=== PATIENT | female | born 1935 | race Caucasian/White ===

== ENCOUNTER 2019-01-23 09:29 | Inpatient (IN) | payer MEDICARE, BC ==
[~2019-01-23] VITALS: Ht 149.9 cm; Wt 58.1 kg
[2019-01-23] MEDS ORDERED: morphine 4 MG/ML VIAL IV STA (09:37)
[2019-01-23] MEDS ORDERED: ONDANSETRON 4 MG INJ IV STA (09:37)
[2019-01-23] MEDS ORDERED: ACETAMINOPHEN 325 MG TAB PO PRN ×2 (11:00→12:00)
[2019-01-23] MEDS ORDERED: ONDANSETRON 4 MG INJ IV PRN ×2 (11:00→12:00)
[2019-01-23] MEDS ORDERED: LIDOCAINE 2% VISC 15 ML CUP PO ONE (11:00)
--- NOTE | 2019-01-23 11:14 | ERD ---
ER Documentation Chief Complaint Chief Complaint fall HPI 83-year-old female brought into the emergency department by paramedics for evaluation of right hip pain. Patient states she was in her usual state of health until last night at approximately 8 AM when she fell in her garden. She began having severe right hip pain and was unable to bear weight since that time. She spent the night unfortunately in her garden. She was found this morning by her son who called the paramedics. Patient denies having passed out. I have reviewed the crotch breaker pre-hospital care. Pre-hospital vital signs were reviewed. Pre-hospital diagnostic tests were reviewed. Upon arrival, patient is complaining of right hip pain only with no other t raumatic or medical complaints. ROS All systems reviewed and are negative except as per history of present illness. PMhx/Soc Medical and Surgical Hx: pt denies Medical Hx History of Surgery: Yes (Left hip pinned) Anesthesia Reaction: No Hx Neurological Disorder: No Hx Respiratory Disorders: No Hx Cardiac Disorders: No Hx Psychiatric Problems: No Hx Miscellaneous Medical Probl: No Hx Alcohol Use: No Hx Substance Use: No Hx Tobacco Use: No Smoking Status: Never smoker FmHx Supportive son at the bedside Physical Exam Vitals Vital Signs Date Temp Pulse Resp B/P (MAP) Pulse Ox O2 O2 Flow FiO2 Time Delivery Rate 01/23/19 78 15 126/56 100 Room Air 11:09 (79) 01/23/19 97.6 80 20 151/65 100 10:30 (93) 01/23/19 82 21 121/62 100 Room Air 10:30 (81) Physical Exam General: Well developed, well nourished in no acute distress HEENT: Scalp atraumatic with no laceration or evidence of skull fracture; no signs of basilar skull fracture. Face symmetric, stable and atraumatic Neck: Full range of motion without discomfort or neurologic symptoms, no midline cervical spine tenderness, step-off, or evidence of significant trauma CV: Regular rate, rhythm, no murmurs appreciated Lungs: Clear to auscultation bilaterally with no chest wall trauma appreciated, chest wall stable with no crepitus Abdomen: Soft, atraumatic and non-tender in all 4 quadrants Extremities: Patient has an old left hip surgical scar from a previous hip operation. Patient's right lower extremity is shortened and externally rotated with tenderness to palpation about the right hip. The pelvis is stable to AP and lateral compression. The upper extremities are normal. Patient's skin is closed and patient is neurovascular intact in the right lower extremity. Back: No thoracic or lumbar midline tenderness, no step-off or evidence of s ignificant trauma Neurologic: Awake, alert and oriented, pupils equal, round and reactive to light, face symmetric, tongue midline, moving all extremities with equal and normal strength, sensory exam grossly non-focal Result Diagram: 01/23/19 1002 01/23/19 1002 Results 24 hrs Laboratory Tests Test 01/23/19 10:02 White Blood Count 13.1 10^3/ul Red Blood Count 4.70 10^6/ul Hemoglobin 14.0 g/dl Hematocrit 41.4 % Mean Corpuscular Volume 88.1 fl Mean Corpuscular Hemoglobin 29.8 pg Mean Corpuscular Hemoglobin Concent 33.8 g/dl Red Cell Distribution Width 12.3 % Platelet Count 140 10^3/UL Mean Platelet Volume 12.7 fl Immature Granulocytes % 0.500 % Neutrophils % 87.7 % Lymphocytes % 4.4 % Monocytes % 7.1 % Eosinophils % 0.1 % Basophils % 0.2 % Nucleated Red Blood Cells % 0.0 /100WBC Immature Granulocytes # 0.070 10^3/ul Neutrophils # 11.5 10^3/ul Lymphocytes # 0.6 10^3/ul Monocytes # 0.9 10^3/ul Eosinophils # 0.0 10^3/ul Basophils # 0.0 10^3/ul Nucleated Red Blood Cells # 0.0 10^3/ul Prothrombin Time 12.7 Sec Prothrombin Time Ratio 1.0 INR International Normalized Ratio 0.94 Activated Partial Thromboplast Time 24.6 Sec Sodium Level 141 mmol/L Potassium Level 4.2 mmol/L Chloride Level 104 mmol/L Carbon Dioxide Level 23 mmol/L Anion Gap 14 Blood Urea Nitrogen 20 mg/dl Creatinine 0.63 mg/dl Est Glomerular Filtrat Rate mL/min mL/min Glucose Level 212 mg/dl Calcium Level 9.0 mg/dl Total Bilirubin 0.8 mg/dl Direct Bilirubin 0.00 mg/dl Indirect Bilirubin 0.8 mg/dl Aspartate Amino Transf (AST/SGOT) 48 IU/L Alanine Aminotransferase (ALT/SGPT) 25 IU/L Alkaline Phosphatase 62 IU/L Troponin I 0.018 ng/ml Total Protein 7.7 g/dl Albumin 4.6 g/dl Globulin 3.10 g/dl Albumin/Globulin Ratio 1.48 Current Medications Medications Dose Sig/Donald Start Time Status Last (Trade) Ordered Route PRN Stop Time Admin Dose Reason Admin Morphine 4 mg ONCE STAT 01/23/19 DC 01/23/19 Sulfate IV 09:37 01/23/19 10:09 (morphine) 09:40 Ondansetron 4 mg ONCE STAT 01/23/19 DC 01/23/19 HCl (Zofran IV 09:37 01/23/19 10:08 Inj) 09:40 Ondansetron 4 mg BRIDGE ORDER 01/23/19 HCl (Zofran PRN IV 11:00 01/24/19 Inj) NAUSEA/VOMITI 10:59 NG 650 mg ER BRIDGE 01/23/19 Acetaminophen PRN PO 11:00 01/24/19 (Tylenol .MILD PAIN 10:59 Tab) 1-3 OR TEMP Lidocaine 15 ml ONCE ONCE 01/23/19 DC (Xylocaine PO 11:00 01/23/19 (Viscous)) 11:01 Procedures/MDM Patient was taken to a room, seen and evaluated. Comfort measures were initiated. Diagnostic tests were ordered and reviewed. 3 LEAD RHYTHM STRIP: Normal sinus rhythm without ectopy EK lead EKG reviewed by myself: Normal Sinus Rhythm Normal Angora and intervals No ST elevation, depression, or T wave inversion Impression: Normal EKG RADIOLOGY: Reviewed with the radiologist CONSULTATION: Dr. Garcia was notified for admission. After reaching out to Dr. Bustillo at Dr. Garcia's request, I spoke with Dr. Hoffman, who accepted the patient in orthopedic consultation. REEVALUATION: Pain was adequately controlled. Arrangements were made for admission to the hospital. MEDICAL DECISION MAKING: Patient presents after a fall. From a trauma standpoint, patient has been evaluated for significant injury. Patient has an operative right hip fracture, but no other evidence of other significant intrathoracic, intra-abdominal or neurologic trauma From a medical standpoint, the fall seems to be related to a geriatric syndrome with multiple causes. I have reviewed medications and evaluated the patient for infection, electrolyte concerns, ischemia and other acute medical concerns. Patient has no evidence of decompensated medical illness at this time. Patient will be admitted for operative management Departure Diagnosis: Primary Impression: Intertrochanteric fracture of right hip Condition: ADELAIDA Bowles Jan 23, 2019 11:14
[2019-01-23] MEDS ORDERED: OXYB10TA6 PO (11:40)
[2019-01-23] MEDS ORDERED: CHOL500010 PO (11:41)
[2019-01-23] MEDS ORDERED: VIT1TABL46 PO (11:42)
[2019-01-23] MEDS ORDERED: CALC1CAP9 PO (11:42)
[2019-01-23] MEDS ORDERED: OMEG1CAP30 PO (11:43)
--- NOTE | 2019-01-23 11:51 | HP ---
Date/Time of Note Date/Time of Note DATE: 01/23/19 TIME: 11:44 Assessment/Plan VTE Prophylaxis SCD applied (from Nsg): Yes Pharmacological prophylaxis: NA/contraindicated Pharm contraindication: surgical contra Lines/Catheters IV Catheter Type (from Nrs): Peripheral IV Urinary Cath still in place: Yes Reason Cath still needed: urinary retention Assessment/Plan Problems: (1) History of Clostridioides difficile colitis Status: Resolved Comment: Monitor. If no diarrhea, will not reeval stool but if diarrhea recurs must have low index of suspicion for recurrence. (2) Urge incontinence Status: Chronic Comment: Pt. to have bacon cath but once removed will restart oxybutynin 10 mg daily (3) Age-related osteoporosis with current pathological fracture of right femur Status: Acute Comment: Pt. s/p bisphosphonate therapy. Pt. needs anabolic bone treatment: teriparatide or abaloparatide Qualifiers: Encounter type: initial encounter Qualified Codes: M80.051A - Age-related osteoporosis with current pathological fracture, right femur, initial encounter for fracture (4) Intertrochanteric fracture of right hip Status: Acute Comment: Ortho called. Pt. will need surgery. Defer to their management Qualifiers: Encounter type: initial encounter Fracture type: closed Fracture alignment: displaced Qualified Codes: S72.141A - Displaced intertrochanteric fracture of right femur, initial encounter for closed fracture Result Diagram: 01/23/19 1002 01/23/19 1002 Results 24hrs Laboratory Tests Test 01/23/19 10:02 White Blood Count 13.1 H Red Blood Count 4.70 Hemoglobin 14.0 Hematocrit 41.4 Mean Corpuscular Volume 88.1 Mean Corpuscular Hemoglobin 29.8 Mean Corpuscular Hemoglobin Concent 33.8 Red Cell Distribution Width 12.3 Platelet Count 140 Mean Platelet Volume 12.7 H Immature Granulocytes % 0.500 H Neutrophils % 87.7 H Lymphocytes % 4.4 L Monocytes % 7.1 Eosinophils % 0.1 Basophils % 0.2 Nucleated Red Blood Cells % 0.0 Immature Granulocytes # 0.070 H Neutrophils # 11.5 H Lymphocytes # 0.6 L Monocytes # 0.9 Eosinophils # 0.0 Basophils # 0.0 Nucleated Red Blood Cells # 0.0 Prothrombin Time 12.7 Prothrombin Time Ratio 1.0 INR International Normalized Ratio 0.94 Activated Partial Thromboplast Time 24.6 Sodium Level 141 Potassium Level 4.2 Chloride Level 104 Carbon Dioxide Level 23 Anion Gap 14 H Blood Urea Nitrogen 20 Creatinine 0.63 Est Glomerular Filtrat Rate mL/min Glucose Level 212 Calcium Level 9.0 Total Bilirubin 0.8 Direct Bilirubin 0.00 Indirect Bilirubin 0.8 Aspartate Amino Transf (AST/SGOT) 48 H Alanine Aminotransferase (ALT/SGPT) 25 Alkaline Phosphatase 62 Troponin I 0.018 Total Protein 7.7 Albumin 4.6 Globulin 3.10 Albumin/Globulin Ratio 1.48 HPI/ROS Admit Date/Time Admit Date/Time 01/23/2019 @ 1100 Hx of Present Illness 83 y/o C F w/ h/o osteoporosis, urge incontinence, and recent h/o c.diff in [facility] until last night when she was working in the garden. Unable to detail how it happened but pt. fell and had immediate pain in R hip. Could not get up. Was found this am by son after laying in garden all night. Called 911 and brought to ER by ambulance. XR shows R comminuted, displaced femoral neck fracture. ROS Constitutional: no complaints Eyes: no complaints ENT: no complaints Respiratory: no complaints Cardiovascular: no complaints Gastrointestinal: no complaints Genitourinary: no complaints Musculoskeletal: bone/joint pain (R hip) Neurologic: no complaints PMH/Family/Social Past Medical History Medical History: other (osteoporosis, urge incontinence, c.diff) Medications Current Medications Ondansetron HCl (Zofran Inj) 4 mg BRIDGE ORDER PRN IV NAUSEA/VOMITING; Start 01/23/19 at 11:00; Stop 01/24/19 at 10:59 Acetaminophen (Tylenol Tab) 650 mg ER BRIDGE PRN PO .MILD PAIN 1-3 OR TEMP; Start 01/23/19 at 11:00; Stop 01/24/19 at 10:59 Coded Allergies: No Known Allergy (Unverified , 01/23/19) Past Surgical History Past Surgical Hx: other (L hip ORIF) Family History Significant Family History: heart disease (father), other (dementia in mother) Social History b. Rigoberto. 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 quit > 55 y. ago) Drug Use: none Exam/Review of Systems Vital Signs Vitals VS - Last 72 Hours, by Label Date Temp Pulse Resp B/P (MAP) Pulse Ox O2 O2 Flow FiO2 Time Delivery Rate 01/23/19 78 15 126/56 100 Room Air 11:09 (79) 01/23/19 97.6 80 20 151/65 100 10:30 (93) 01/23/19 82 21 121/62 100 Room Air 10:30 (81) Vital Signs Date Temp Pulse Resp B/P (MAP) Pulse Ox O2 O2 Flow FiO2 Time Delivery Rate 01/23/19 78 15 126/56 100 Room Air 11:09 (79) 01/23/19 97.6 10:30 Exam Constitutional: alert, oriented, well developed Psych: no complaints, nl mood/affect Eyes: nl conjunctiva, EOMI, nl lids, nl sclera, PERRL ENMT: nl external ears & nose, mucosa pink and moist Neck: supple, non-tender; No bruits, No masses, No thyromegaly Respiratory: clear to auscultation, normal air movement Cardiovascular: regular rate and rhythm, nl pulses; No edema, No murmurs/extra sounds, No rub Gastrointestinal: soft, nl liver, spleen, non-tender, bowel sounds; No mass, No rebound or guarding Musculoskeletal: nl extremities to inspection Extremities: normal pulses; No cyanosis, No clubbing, No edema 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
[2019-01-23] MEDS ORDERED: BISACODYL (EC) 5 MG TAB PO PRN (12:00)
[2019-01-23] MEDS ORDERED: DOCUSATE SODIUM 100 MG CAP PO PRN (12:00)
[2019-01-23] MEDS ORDERED: ZOLPIDEM 5 MG TAB PO PRN (12:00)
[2019-01-23] MEDS ORDERED: HYDROCODONE/APAP (5/325) TAB PO PRN (12:00)
[2019-01-23] MEDS ORDERED: MAGNESIUM HYDROXIDE 30ML CUP PO PRN (12:00)
[2019-01-23] MEDS ORDERED: NA PHOSPHATE/BIPHOS 133 ML ENEMA PR PRN (12:00)
[2019-01-23] MEDS: SOD CHLORIDE 0.9% 1,000 ML IV SCH ×2 (12:21→21:25)
[2019-01-23 13:30] VITALS: BP 136/60; PULSE 77; RESP 18
[2019-01-23 13:39] VITALS: BMI 63.0
[2019-01-23] MEDS: HYDROCODONE/APAP (5/325) TAB PO PRN ×2 (15:32→21:25)
--- NOTE | 2019-01-23 18:16 | CONS ---
DATE OF ADMISSION: 01/23/2019 DATE OF CONSULTATION: 01/23/2019 HISTORY OF PRESENT ILLNESS: The patient is an 83-year-old male who was admitted on 01/23/2019 when s he was brought into the Emergency Room because of painful swelling and deformity involving her right hip. She has been relatively in good health until last night when she had sustained a ground-level fall while she was in her garden. Because of the severe pain, she was not able to stand up or walk a nd she had to spend the night, lying in her garden until she was discovered by her son on the morning of her admission. PAST MEDICAL HISTORY: She had a fracture of her left hip about 20 years ago which was fixed with ope n reduction and internal fixation. PHYSICAL FINDINGS: My examination revealed an 83-year-old female who is alert and oriented. She wa s not in any acute distress other than the pain involving her right hip. There was an obvious shorte edith and slight external rotation of the right lower extremity which is suggestive of a hip fracture. There was no obvious neurovascular compromise involving right lower extremity. Range of motion of the right hip was not tested because of the obvious pain. DIAGNOSTIC STUDIES: X-rays of the right hip revealed an obvious intertrochanteric fracture of the ri ght hip which was displaced. The fracture was extending downward to the subtrochanteric and proximal femur area which make it unstable. DIAGNOSTIC IMPRESSION: Severely comminuted and displaced and unstable intertrochanteric fracture wit h the component subtrochanteric and proximal shaft fracture. RECOMMENDATIONS FOR TREATMENT: Open reduction and internal fixation as soon as she can be medically cleared for surgery. Dictated By: ESTEVAN SMALL MD IK/NTS Conf#: [id number] DID#: [id number] CC: ELEAZAR HUTCHISON MD;*EndCC*
[2019-01-23 20:25] VITALS: BP 121/58; PULSE 84; RESP 20
--- NOTE | 2019-01-23 22:05 | EN ---
Date/Time of Note Date/Time of Note DATE: 01/23/19 TIME: 22:02 Event Note Medicine Medicine Event Note Patient seen and examined. Labs, CXR reviewed. EKG read as normal by ER physician. Pt. w/o T2DM or cardiac history. Pt. can easily do 4 metabolic equivalents of activity as she was working in her garden when she fell and suffered a fracture. This patient should be considered low-risk for intermediate-risk procedure and may proceed at this level without further cardiac risk stratification. ELEAZAR HUTCHISON MD Jan 23, 2019 22:05
[2019-01-24] VITALS (34 sets, daily range): BP systolic 111–161; BP diastolic 42–72; PULSE 74–108; RESP 12–21; Ht 149.9 cm; Wt 58.1 kg
[2019-01-24] MEDS: SOD CHLORIDE 0.9% 1,000 ML IV SCH ×4 (07:38→18:47)
[2019-01-24] MEDS: morphine 2 MG INJ IV PRN (09:49)
--- NOTE | 2019-01-24 10:34 | PN ---
Date/Time of Note Date/Time of Note DATE: 01/24/19 TIME: 10:26 Assessment/Plan VTE Prophylaxis Risk score (from [facility])>0 risk: 11 SCD applied (from [facility]): Yes Pharmacological prophylaxis: NA/contraindicated Pharm contraindication: thrombocytopenia, surgical contra Lines/Catheters IV Catheter Type (from [facility]): Peripheral IV Urinary Cath still in place: Yes Reason Cath still needed: urinary retention Assessment/Plan Problems: (1) Thrombocytopenia Status: Acute Comment: Platelets dropped from 140 on admission to 86 this am. No obvious reason for decrease. Pt. did not receive heparin. Possible hepatosplenomegaly but not palpable on exam. Should not be too low to prevent surgery. Will reche ck in am w/ separate platelet count. Will monitor. (2) Urge incontinence Status: Chronic Comment: Bacon cath in place. Holding oxybutynin at this time. Will restart once bacon removed (3) Age-related osteoporosis with current pathological fracture of right femur Status: Acute Comment: Will need anabolic therapy Qualifiers: Encounter type: initial encounter Qualified Codes: M80.051A - Age-related osteoporosis with current pathological fracture, right femur, initial encounter for fracture (4) Intertrochanteric fracture of right hip Status: Acute Comment: To OR today provided platelet count not a contraindication. Qualifiers: Encounter type: initial encounter Fracture type: closed Fracture alig nment: displaced Qualified Codes: S72.141A - Displaced intertrochanteric fracture of right femur, initial encounter for closed fracture Result Diagram: 01/24/19 0507 01/24/19 0507 Results 24hrs Laboratory Tests Test 01/23/19 11:51 01/24/19 05:07 Urine Color YELLOW Urine Clarity SLIGHTLY CLOUDY A Urine pH 5.0 Urine Specific [place] 1.022 Urine Ketones 1+ H Urine Nitrite NEGATIVE Urine Bilirubin NEGATIVE Urine Urobilinogen NEGATIVE Urine Leukocyte Esterase 1+ H Urine Microscopic RBC 2 Urine Microscopic WBC 36 H Urine Bacteria FEW A Urine Mucus FEW A Urine Hemoglobin NEGATIVE Urine Glucose 3+ H Urine Total Protein NEGATIVE White Blood Count 9.3 # Red Blood Count 3.47 #L Hemoglobin 10.5 #L Hematocrit 31.1 #L Mean Corpuscular Volume 89.6 Mean Corpuscular Hemoglobin 30.3 Mean Corpuscular Hemoglobin Concent 33.8 Red Cell Distribution Width 13.0 Platelet Count 86 #L Mean Platelet Volume 12.7 H Immature Granulocytes % 0.400 Neutrophils % 64.1 Lymphocytes % 23.0 Monocytes % 11.0 Eosinophils % 1.1 Basophils % 0.4 Nucleated Red Blood Cells % 0.0 Immature Granulocytes # 0.040 H Neutrophils # 6.0 Lymphocytes # 2.1 Monocytes # 1.0 H Eosinophils # 0.1 Basophils # 0.0 Nucleated Red Blood Cells # 0.0 Sodium Level 141 Potassium Level 4.0 Chloride Level 109 Carbon Dioxide Level 29 Anion Gap 3 #L Blood Urea Nitrogen 17 Creatinine 0.72 Est Glomerular Filtrat Rate mL/min Glucose Level 110 # Hemoglobin A1c 5.1 Calcium Level 8.1 L Magnesium Level 2.0 Total Bilirubin 0.6 Direct Bilirubin 0.00 Indirect Bilirubin 0.6 Aspartate Amino Transf (AST/SGOT) 84 H Alanine Aminotransferase (ALT/SGPT) 39 Alkaline Phosphatase 40 L Total Protein 5.3 #L Albumin 2.9 #L Globulin 2.40 Albumin/Globulin Ratio 1.20 Thyroid Stimulating Hormone (TSH) 1.590 Subjective 24 Hr Interval Summary Constitutional: no complaints, improved Respiratory: no complaints Cardiovascular: no complaints Gastrointestinal: no complaints Genitourinary: no complaints Musculoskeletal: bone/joint pain (R hip pain, controlled w/ pain med) Neurologic: no complaints Exam/Review of Systems Exam Vitals VS - Last 72 Hours, by Label Date Temp Pulse Resp B/P (MAP) Pulse Ox O2 O2 Flow FiO2 Time Delivery Rate 01/24/19 98.8 81 20 141/64 97 07:16 (89) 01/24/19 98.3 74 17 119/56 100 01:37 (77) 01/23/19 97.9 84 20 121/58 99 20:25 (79) 01/23/19 98.1 77 18 136/60 97 Room Air 13:30 (85) 01/23/19 78 15 126/56 100 Room Air 11:09 (79) 01/23/19 97.6 80 20 151/65 100 10:30 (93) 01/23/19 82 21 121/62 100 Room Air 10:30 (81) Vital Signs Date Temp Pulse Resp B/P (MAP) Pulse Ox O2 O2 Flow FiO2 Time Delivery Rate 01/24/19 98.8 81 20 141/64 97 07:16 (89) 01/23/19 Room Air 13:30 Intake and Output 01/23/19 01/23/19 01/24/19 1515:00 23:00 07:00 IntakeIntake Total 1000 ml 800 ml OutputOutput Total 500 ml BalanceBalance 1000 ml 300 ml Constitutional: alert, oriented, well developed Psych: no complaints, nl mood/affect Respiratory: clear to auscultation, normal air movement Cardiovascular: regular rate and rhythm, nl pulses; No edema, No murmurs/extra sounds, No rub Gastrointestinal: soft, nl liver, spleen, non-tender, bowel sounds; No mass, No rebound or guarding Musculoskeletal: nl extremities to inspection Extremities: normal pulses; No cyanosis, No clubbing, No edema Neurological: 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, nl mental status, nl speech, nl strength Results Results 24hrs Laboratory Tests Test 01/23/19 11:51 01/24/19 05:07 Urine Color YELLOW Urine Clarity SLIGHTLY CLOUDY A Urine pH 5.0 Urine Specific [place] 1.022 Urine Ketones 1+ H Urine Nitrite NEGATIVE Urine Bilirubin NEGATIVE Urine Urobilinogen NEGATIVE Urine Leukocyte Esterase 1+ H Urine Microscopic RBC 2 Urine Microscopic WBC 36 H Urine Bacteria FEW A Urine Mucus FEW A Urine Hemoglobin NEGATIVE Urine Glucose 3+ H Urine Total Protein NEGATIVE White Blood Count 9.3 # Red Blood Count 3.47 #L Hemoglobin 10.5 #L Hematocrit 31.1 #L Mean Corpuscular Volume 89.6 Mean Corpuscular Hemoglobin 30.3 Mean Corpuscular Hemoglobin Concent 33.8 Red Cell Distribution Width 13.0 Platelet Count 86 #L Mean Platelet Volume 12.7 H Immature Granulocytes % 0.400 Neutrophils % 64.1 Lymphocytes % 23.0 Monocytes % 11.0 Eosinophils % 1.1 Basophils % 0.4 Nucleated Red Blood Cells % 0.0 Immature Granulocytes # 0.040 H Neutrophils # 6.0 Lymphocytes # 2.1 Monocytes # 1.0 H Eosinophils # 0.1 Basophils # 0.0 Nucleated Red Blood Cells # 0.0 Sodium Level 141 Potassium Level 4.0 Chloride Level 109 Carbon Dioxide Level 29 Anion Gap 3 #L Blood Urea Nitrogen 17 Creatinine 0.72 Est Glomerular Filtrat Rate mL/min Glucose Level 110 # Hemoglobin A1c 5.1 Calcium Level 8.1 L Magnesium Level 2.0 Total Bilirubin 0.6 Direct Bilirubin 0.00 Indirect Bilirubin 0.6 Aspartate Amino Transf (AST/SGOT) 84 H Alanine Aminotransferase (ALT/SGPT) 39 Alkaline Phosphatase 40 L Total Protein 5.3 #L Albumin 2.9 #L Globulin 2.40 Albumin/Globulin Ratio 1.20 Thyroid Stimulating Hormone (TSH) 1.590 Medications Medication Current Medications Ondansetron HCl (Zofran Inj) 4 mg BRIDGE ORDER PRN IV NAUSEA/VOMITING; Start 01/23/19 at 11:00; Stop 01/24/19 at 10:59 Acetaminophen (Tylenol Tab) 650 mg ER BRIDGE PRN PO .MILD PAIN 1-3 OR TEMP; Start 01/23/19 at 11:00; Stop 01/24/19 at 10:59 Sodium Chloride 1,000 ml @ 100 mls/hr Q10H IV Last administered on 01/24/19at 09:49; Admin Dose 100 MLS/HR; Start 01/23/19 at 11:38 IV Flush (NS 3 ml) 3 ml PER PROTOCOL IV ; Start 01/23/19 at 12:00 Ondansetron HCl (Zofran Inj) 4 mg Q6H PRN IV NAUSEA/VOMITING; Start 01/23/19 at 12:00 Acetaminophen (Tylenol Tab) 650 mg Q6H PRN PO .PAIN 1-3 OR TEMP; Start 01/23/19 at 12:00 Acetaminophen/ Hydrocodone Bitart ([place] (5/325)) 1 tab Q6H PRN PO .MOD PAIN 4- 6; Start 01/23/19 at 12:00 Acetaminophen/ Hydrocodone Bitart ([place] (5/325)) 2 tab Q6H PRN PO .SEVERE PAIN 7-10 Last administered on 01/23/19at 21:25; Admin Dose 2 TAB; Start 01/23/19 at 12:00 Morphine Sulfate (morphine) 2 mg Q4H PRN IV .SEVERE PAIN 7-10 Last administered on 01/24/19at 09:49; Admin Dose 2 MG; Start 01/23/19 at 12:00 Docusate Sodium (Colace) 100 mg Q12H PRN PO .CONSTIPATION; Start 01/23/19 at 12:00 Magnesium Hydroxide (Milk Of Mag) 30 ml DAILY PRN PO .CONSTIPATION; Start 01/23/19 at 12:00 Bisacodyl (Dulcolax) 5 mg DAILY PRN PO .CONSTIPATION; Start 01/23/19 at 12:00 Sodium Biphosphate/ Sodium Phosphate (Fleet Enema) 133 ml DAILY PRN [place] .CONSTIPATION; Start 01/23/19 at 12:00 Zolpidem Tartrate (Ambien) 5 mg QHS PRN PO .INSOMNIA; Start 01/23/19 at 12:00 ELEAZAR HUTCHISON MD Jan 24, 2019 10:34
[2019-01-24] MEDS ORDERED: POLYMYXIN/BACITRACIN 1L IRRIG ONE (12:28)
--- NOTE | 2019-01-24 13:04 | PREAC ---
Date/Time of Note Date/Time of Note DATE: 01/24/19 TIME: 12:52 Anesthesia Eval and Record Evaluation Time Pre-Procedure Interview DATE: 01/24/19 TIME: 12:52 Age 83 Sex female NPO: 8 hrs Preoperative diagnosis Intratrochanteric fracture of right hip Planned procedure ORIF Right Hip Past Medical History Past Medical History: Includes Musculoskeletal: Osteoarthritis GI: GERD Heme: Anemia, Thrombocytopenia, Other (Labs rechecked with consistent thrombocytopenia, called lab, no clumping, +giant cells, denies FHx of bleeding issues, not on known drug to cause TCP, ?on herbals, PT/INR/PTT WNL, no easy brusing, denies prior bleeding during surgery, no prior blood malignancies, LFTS unremarkable, no evident HSM) Surgery & Anesthesia Issues No known issue Meds Anticoagulation: No Beta Augustine within 24 hr: No Reason Beta Augustine not given: Pt. not on B-Augustine Reported Medications Wallace-3 Fatty Acids/Fish Oil (Wallace 3 Fish Oil Softgel) 1 Each Capsule.dr, 1 EACH PO DAILY 01/23/19 Vitamin B Complex* (Vitamin B Complex*) 1 Each Tablet, 1 TAB PO DAILY, TAB 01/23/19 Calcium Carbonate-Vitamin D3 (Calcium 600 + D Softgel) 1 Each Capsule, 2 CAP PO DAILY, CAP 01/23/19 Cholecalciferol (Vitamin D3) 5,000 Unit Tablet, 5000 UNIT PO DAILY, TAB 01/23/19 Oxybutynin Chloride* (Ditropan* XL) 10 Mg Tab.er.24, 10 MG PO DAILY, TAB.SA 01/23/19 Current Medications Sodium Chloride 1,000 ml @ 100 mls/hr Q10H IV Last administered on 01/24/19at 09:49; Admin Dose 100 MLS/HR; Start 01/23/19 at 11:38 IV Flush (NS 3 ml) 3 ml PER PROTOCOL IV ; Start 01/23/19 at 12:00 Ondansetron HCl (Zofran Inj) 4 mg Q6H PRN IV NAUSEA/VOMITING; Start 01/23/19 at 12:00 Acetaminophen (Tylenol Tab) 650 mg Q6H PRN PO .PAIN 1-3 OR TEMP; Start 01/23/19 at 12:00 Acetaminophen/ Hydrocodone Bitart ([place] (5/325)) 1 tab Q6H PRN PO .MOD PAIN 4- 6; Start 01/23/19 at 12:00 Acetaminophen/ Hydrocodone Bitart ([place] (5/325)) 2 tab Q6H PRN PO .SEVERE PAIN 7-10 Last administered on 01/23/19at 21:25; Admin Dose 2 TAB; Start 01/23/19 at 12: 00 Morphine Sulfate (morphine) 2 mg Q4H PRN IV .SEVERE PAIN 7-10 Last administered on 01/24/19at 09:49; Admin Dose 2 MG; Start 01/23/19 at 12:00 Docusate Sodium (Colace) 100 mg Q12H PRN PO .CONSTIPATION; Start 01/23/19 at 12:00 Magnesium Hydroxide (Milk Of Mag) 30 ml DAILY PRN PO .CONSTIPATION; Start 01/23/19 at 12:00 Bisacodyl (Dulcolax) 5 mg DAILY PRN PO .CONSTIPATION; Start 01/23/19 at 12:00 Sodium Biphosphate/ Sodium Phosphate (Fleet Enema) 133 ml DAILY PRN [place] .CONSTIPATION; Start 01/23/19 at 12:00 Zolpidem Tartrate (Ambien) 5 mg QHS PRN PO .INSOMNIA; Start 01/23/19 at 12:00 Meds reviewed: Yes Allergies Coded Allergies: No Known Allergy (Unverified , 01/23/19) Allergies Reviewed: Yes Labs/Studies Labs Reviewed: Reviewed by anesthesiologist Result Diagram: 01/24/19 1118 01/24/19 0507 Laboratory Tests 01/24/19 05:07 01/24/19 11:18 test: N/A Studies: ECG Pre-procedure Exam Last vitals Vital Signs Date Temp Pulse Resp B/P (MAP) Pulse Ox O2 O2 Flow FiO2 Time Delivery Rate 01/24/19 98.8 81 20 141/64 97 07:16 (89) 01/23/19 Room Air 13:30 Airway: Adequate mouth opening, Adequate thyromental dist Mallampati: Mallampati II Teeth: Normal Lung: Normal Heart: Normal ASA Physical Status ASA physical status: 2 Emergency: None Planned Anesthetic General/MAC: ETT, A Line, Other (Platelets on hand pre-op and PRBCs on hold; weight 130lbs (correction needed in EMR)) Planned Pain Management Parenteral pain med, Local by surgeon Pre-operative Attestations Prior to commencing anesthesia and surgery, the patient was re-evaluated, there was verification of: *The patient's identity *The results of appropriate recent lab work and preoperative vital signs *The above evaluation not changing prior to induction *Anesthetic plan, risk benefits, alternative and complications discussed with patient/family; questions answered; patient/family understands, accepts and wishes to proceed. STEPHAN COVINGTON MD Jan 24, 2019 13:03
[2019-01-24] MEDS ORDERED: CEFAZOLIN 1 GM INJ ONE (13:08)
[2019-01-24] MEDS ORDERED: DEXAMETHASONE 4 MG/ML 5 ML INJ ONE (13:08)
[2019-01-24] MEDS ORDERED: ESMOLOL 100 MG INJ ONE (13:08)
[2019-01-24] MEDS ORDERED: LIDOCAINE 2% (SDV) 5 ML INJ ONE (13:08)
[2019-01-24] MEDS ORDERED: SEVOFLURANE 15 MIN ONE (13:08)
[2019-01-24] MEDS ORDERED: NEOSTIGMINE 3 MG/3 ML SYRINGE ONE (13:08)
[2019-01-24] MEDS ORDERED: GLYCOPYRROLATE 0.4 MG INJ ONE (13:08)
[2019-01-24] MEDS ORDERED: ROCURONIUM 50 MG INJ ONE (13:08)
[2019-01-24] MEDS ORDERED: PROPOFOL 200 MG INJ ONE (13:08)
[2019-01-24] MEDS ORDERED: ONDANSETRON 4 MG INJ ONE (13:08)
[2019-01-24] MEDS ORDERED: ALBUMIN HUMAN 5% 250 ML IV PRN (13:30)
[2019-01-24] MEDS ORDERED: FENTAnyl 50 MCG/ML VIAL IV PRN ×2 (13:30)
[2019-01-24] MEDS ORDERED: ONDANSETRON 4 MG INJ IV PRN (13:30)
[2019-01-24] MEDS ORDERED: LABETALOL HCL 20MG INJ IV PRN (13:30)
[2019-01-24] MEDS ORDERED: morphine 2 MG INJ IV PRN ×2 (13:30)
--- NOTE | 2019-01-24 13:39 | HPN ---
Date/Time of Note Date/Time of Note DATE: 01/24/19 TIME: 13:39 Interval H&P Admission Note Pt. seen H&P reviewed: No system changes LUIS FELIPE SMALL MD Jan 24, 2019 13:39
[2019-01-24] MEDS ORDERED: HYDROmorphONE 2 MG/ML SYG ONE (14:51)
[2019-01-24] MEDS ORDERED: ACETAMINOPHEN 1000MG/100ML IV 100 ML IVPB ONE (16:00)
--- NOTE | 2019-01-24 16:43 | PAC ---
Date/Time of Note Date/Time of Note DATE: 01/24/19 TIME: 16:42 Post-Anesthesia Notes Post-Anesthesia Note Last documented vital signs T 98.6, HR 98 RR14 BP 156/64 Sp02 100% FM 6L FM Vital Signs Date Temp Pulse Resp B/P (MAP) Pulse Ox O2 O2 Flow FiO2 Time Delivery Rate 01/24/19 98.8 81 20 141/64 97 07:16 (89) 01/23/19 Room Air 13:30 Activity: WNL Respiratory function: WNL Cardiovascular function: WNL Mental status: Baseline Pain reasonably controlled: Yes Hydration appropriate: Yes Nausea/Vomiting absent: Yes STEPHAN COVINGTON MD Jan 24, 2019 16:43
--- NOTE | 2019-01-24 17:11 | SIPON ---
Date/Time of Note Date/Time of Note DATE: 01/24/19 TIME: 17:02 Operative Report Preoperative Diagnosis intertrochanteric & subtrochanteric fracture of Righrt hip Postoperative Diagnosis same Operation/Procedure Performed O.R.I.F. of right hip fracture Surgeon see signature line practice assistant none Anesthesia: general Estimated blood loss: 50 - 100 ml's Transfusion Required none Specimen none Grafts/Implants gamma nail Complications none LUIS FELIPE SMALL MD Jan 24, 2019 17:11
[2019-01-24] MEDS ORDERED: morphine 4 MG/ML VIAL IV PRN (17:30)
[2019-01-24] MEDS ORDERED: HYDROCODONE/APAP (5/325) TAB PO PRN (17:30)
--- NOTE | 2019-01-24 18:50 | OPR ---
DATE OF OPERATION: 01/24/2019 PREOPERATIVE DIAGNOSIS: Intertrochanteric and subtrochanteric fracture of the right hip. POSTOPERATIVE DIAGNOSIS: Intertrochanteric and subtrochanteric fracture of the right hip. PROCEDURE PERFORMED: Open reduction and internal fixation of the intertrochanteric and subtrochanter ic fracture of the right hip. ANESTHESIA: General anesthesia. SURGEON: Estevan Hoffman MD. PROCEDURE AND FINDINGS: Under general anesthesia, the patient was placed in supine position upon the operating table. Using fracture table and under fluoroscopic monitoring with the patient under anes thesia, manipulative reduction was carried out until an acceptable alignment could be achieved. To m y surprise, the steady distal traction followed by abduction and internal and external rotate, manipu lation produced exact and completely satisfactory alignment of the fracture, the concern. The long s piking fractured fragment pain involving the subtrochanteric area and proximal shaft of the right fem ur was exactly reduced along with the reduction of the intertrochanteric portion of the fracture. Usual prep and drape was done exposing the right hip and right lower extremity. The intertrochanteri c area of the right hip was approached through the small longitudinal incision, and this incision was extended up or as needed because of the abundant amount of adipose tissues around the hip. A guide drill was introduced into the intramedullary canal through the tip of the greater trochanter and afte r confirming satisfactory alignment of the guide drill, the opening was enlarged with the cannulated drill and the reamer guide was introduced into the intramedullary canal. After proper adjustment and positioning, measurement was made and it was my estimation that 340 mm intramedullary device should be used. After reaming up to 11 mm, the selected intramedullary cha in the size of 340 mm x 10 mm wi th the 130-degree angle was inserted. After proper adjustment, a guide pin for the lag screw was pro perly positioned and the measurement revealed that the length of the lag screw should be 85 mm. Afte r drilling along the guide pin, the selected lag screw in the size of 85 mm was inserted. The lag sc rew then was locked after obtaining some degree of compression at the fracture site. Finally, in ord er to stabilize the entire system further, one distal locking screw was placed in a static position. After confirming satisfactory alignment of the fracture and proper position of the fixation device an d after irrigation and hemostasis, closure of the incision was carried out using 0 Vicryl for muscle and fascia and 2-0 Vicryl for subcutaneous tissues. Final skin closure was carried out with skin sta ples. Usual sterile pressure dressings were applied. The patient tolerated the entire procedure very well and was sent to the recovery room in good condit ion. Dictated By: ESTEVAN HASSAN/CELY Conf#: [id number] DID#: [id number] CC: ELEAZAR HUTCHISON MD;*End*
[2019-01-24] MEDS: NACL 0.9% 3 ML SYG IV SCH (19:33)
[2019-01-25] MEDS: SOD CHLORIDE 0.9% 1,000 ML IV SCH ×3 (01:33→21:10)
[2019-01-25 02:00] VITALS: BP 129/58; PULSE 88; RESP 17
[2019-01-25 07:57] VITALS: BP 136/64; PULSE 89; RESP 20
[2019-01-25 14:00] VITALS: BP 119/58; PULSE 91; RESP 20
[2019-01-25 20:00] VITALS: BP 116/58; PULSE 90; RESP 20
[2019-01-25] MEDS: FERROUS SULFATE (EC) 325 MG TAB PO SCH (21:10)
[2019-01-25] MEDS: DICLOFENAC SODIUM 1% GEL 100 GM TUBE TP SCH (21:10)
--- NOTE | 2019-01-25 23:14 | PN ---
Date/Time of Note Date/Time of Note DATE: 01/25/19 TIME: 23:06 Assessment/Plan VTE Prophylaxis Risk score (from [facility])>0 risk: 12 SCD applied (from [facility]): Yes Pharmacological prophylaxis: NA/contraindicated Pharm contraindication: thrombocytopenia, surgical contra Lines/Catheters IV Catheter Type (from [facility]): Peripheral IV Urinary Cath still in place: Yes Reason Cath still needed: urinary retention Assessment/Plan Problems: (1) Postoperative anemia due to acute blood loss Status: Acute Comment: Hgb down to 7.2 today. Will start FeSO4 325 mg tid today. Monitor. If continues to decrease will transfuse pt. (2) Knee pain, right Status: Acute Comment: Likely due to swelling. Will add diclofenac gel to knee to reduce pain and swelling locally. Qualifiers: Chronicity: acute Qualified Codes: M25.561 - Pain in right knee (3) Conflicted attitude towards exercise Status: Acute Comment: Pt. refusing PT. Encourage compliance. Pt. advised that mortality is significantly higher in patients with this type of injury who do not ambulate. Pt. advised to work w/ PT. Ortho requesting ARU. Pt. will not qualify for or benefit from ARU if she refuses to work w/ PT. (4) Thrombocytopenia Status: Acute Comment: Idiopathic and not severe. Will monitor. (5) Intertrochanteric fracture of right hip Status: Acute Comment: S/p ORIF, POD#1. Pain controlled. Encourage PT. Will monitor. Qualifiers: Encounter type: initial encounter Fracture type: closed Fracture alignment: displaced Qualified Codes: S72.141A - Displaced intertrochanteric fracture of right femur, initial encounter for closed fracture (6) Urge incontinence Status: Chronic Comment: Once bacon d/c'ed will restart oxybutynin Result Diagram: 01/25/19 0454 01/25/19 0454 Results 24hrs Laboratory Tests Test 01/25/19 04:54 White Blood Count 9.2 # Red Blood Count 2.42 L Hemoglobin 7.2 L Hematocrit 22.0 L Mean Corpuscular Volume 90.9 Mean Corpuscular Hemoglobin 29.8 Mean Corpuscular Hemoglobin Concent 32.7 Red Cell Distribution Width 12.9 Platelet Count 108 L Mean Platelet Volume 12.1 H Immature Granulocytes % 0.300 Neutrophils % 83.1 H Lymphocytes % 6.9 L Monocytes % 9.6 Eosinophils % 0.0 Basophils % 0.1 Nucleated Red Blood Cells % 0.0 Immature Granulocytes # 0.030 Neutrophils # 7.6 H Lymphocytes # 0.6 L Monocytes # 0.9 Eosinophils # 0.0 Basophils # 0.0 Nucleated Red Blood Cells # 0.0 Prothrombin Time 14.9 Prothrombin Time Ratio 1.2 INR International Normalized Ratio 1.16 Sodium Level 141 Potassium Level 3.9 Chloride Level 112 H Carbon Dioxide Level 21 Anion Gap 8 Blood Urea Nitrogen 15 Creatinine 0.58 Est Glomerular Filtrat Rate mL/min Glucose Level 125 Calcium Level 7.5 L Subjective 24 Hr Interval Summary Constitutional: no complaints Respiratory: no complaints Cardiovascular: no complaints Gastrointestinal: no complaints Genitourinary: no complaints Musculoskeletal: bone/joint pain (R knee painful when she tries to ambulate and feels it will go sideways on her; does not want to get up; does not trust PT) Neurologic: no complaints Exam/Review of Systems Exam Vitals VS - Last 72 Hours, by Label Date Temp Pulse Resp B/P (MAP) Pulse Ox O2 O2 Flow FiO2 Time Delivery Rate 01/25/19 98.9 90 20 116/58 95 Room Air 20:00 (77) 01/25/19 98.7 91 20 119/58 98 Room Air 14:00 (78) 01/25/19 99.0 89 20 136/64 99 Nasal 07:57 (88) Cannula 01/25/19 97.9 88 17 129/58 100 Room Air 02:00 (81) 01/24/19 98.3 80 18 111/56 100 Room Air 21:50 (74) 01/24/19 98.2 79 18 127/59 100 Room Air 20:51 (81) 01/24/19 98.0 82 17 119/57 100 Room Air 20:20 (77) 01/24/19 Nasal 2.0 19:56 Cannula 01/24/19 98.2 79 17 127/59 100 19:50 (81) 01/24/19 97.6 108 18 144/57 100 19:20 (86) 01/24/19 97.9 83 20 134/63 100 19:05 (86) 01/24/19 98.3 83 20 141/65 100 18:53 (90) 01/24/19 98.3 85 18 142/63 100 18:35 (89) 01/24/19 Nasal 2.0 18:28 Cannula 01/24/19 98.9 76 19 133/54 100 Room Air 18:28 (80) 01/24/19 78 20 114/42 100 Room Air 18:23 (66) 01/24/19 78 19 122/45 100 Room Air 18:18 (70) 01/24/19 88 21 143/53 99 Room Air 18:13 (83) 01/24/19 80 20 132/52 100 Room Air 18:08 (78) 01/24/19 92 14 135/66 100 Room Air 18:03 (89) 01/24/19 76 19 125/49 100 Room Air 17:58 (74) 01/24/19 78 20 125/47 100 Room Air 17:53 (73) 01/24/19 88 12 161/72 89 Room Air 17:48 (101) 01/24/19 84 19 137/62 95 Room Air 17:43 (87) 01/24/19 82 14 131/50 96 Room Air 17:38 (77) 01/24/19 82 17 124/60 96 Room Air 17:33 (81) 01/24/19 82 14 140/56 97 Room Air 17:28 (84) 01/24/19 86 16 140/57 96 Room Air 17:23 (84) 01/24/19 86 15 140/54 96 Room Air 17:18 (82) 01/24/19 88 17 143/57 96 Room Air 17:13 (85) 01/24/19 96 18 151/61 97 Room Air 17:08 (91) 01/24/19 98 19 147/64 98 Room Air 17:03 (91) 01/24/19 92 17 145/72 100 Nasal 2.0 16:58 (96) Cannula 01/24/19 104 19 150/64 100 Nasal 2.0 16:53 (92) Cannula 01/24/19 98 17 158/64 100 Nasal 4.0 16:48 (95) Cannula 01/24/19 108 16 154/69 100 Nasal 4.0 16:43 (97) Cannula 01/24/19 15 156/64 100 Mask 8.0 16:40 (94) 01/24/19 98.6 84 14 156/64 100 Mask 8.0 16:37 (94) 01/24/19 Simple 8.0 16:37 Mask 01/24/19 98.8 81 20 141/64 97 07:16 (89) 01/24/19 98.3 74 17 119/56 100 01:37 (77) 01/23/19 97.9 84 20 121/58 99 20:25 (79) 01/23/19 98.1 77 18 136/60 97 Room Air 13:30 (85) 01/23/19 78 15 126/56 100 Room Air 11:09 (79) 01/23/19 97.6 80 20 151/65 100 10:30 (93) 01/23/19 82 21 121/62 100 Room Air 10:30 (81) Vital Signs Date Temp Pulse Resp B/P (MAP) Pulse Ox O2 O2 Flow FiO2 Time Delivery Rate 01/25/19 98.9 90 20 116/58 95 Room Air 20:00 (77) 01/24/19 2.0 19:56 Intake and Output 01/24/19 01/24/19 01/25/19 1515:00 23:00 07:00 IntakeIntake Total 400 ml 2811 ml 1500 ml OutputOutput Total 1100 ml 700 ml BalanceBalance 400 ml 1711 ml 800 ml Constitutional: alert, oriented, well developed Psych: no complaints, nl mood/affect Respiratory: clear to auscultation, normal air movement Cardiovascular: regular rate and rhythm, edema (RLE); No murmurs/extra sounds, No rub Gastrointestinal: soft, nl liver, spleen, non-tender, bowel sounds; No mass, No rebound or guarding Musculoskeletal: nl extremities to inspection Extremities: edema (2+ around R knee); No cyanosis, No clubbing Neurological: MUSICAL THERAPIST II-XII intact, nl mental status, nl speech, nl strength Results Results 24hrs Laboratory Tests Test 01/25/19 04:54 White Blood Count 9.2 # Red Blood Count 2.42 L Hemoglobin 7.2 L Hematocrit 22.0 L Mean Corpuscular Volume 90.9 Mean Corpuscular Hemoglobin 29.8 Mean Corpuscular Hemoglobin Concent 32.7 Red Cell Distribution Width 12.9 Platelet Count 108 L Mean Platelet Volume 12.1 H Immature Granulocytes % 0.300 Neutrophils % 83.1 H Lymphocytes % 6.9 L Monocytes % 9.6 Eosinophils % 0.0 Basophils % 0.1 Nucleated Red Blood Cells % 0.0 Immature Granulocytes # 0.030 Neutrophils # 7.6 H Lymphocytes # 0.6 L Monocytes # 0.9 Eosinophils # 0.0 Basophils # 0.0 Nucleated Red Blood Cells # 0.0 Prothrombin Time 14.9 Prothrombin Time Ratio 1.2 INR International Normalized Ratio 1.16 Sodium Level 141 Potassium Level 3.9 Chloride Level 112 H Carbon Dioxide Level 21 Anion Gap 8 Blood Urea Nitrogen 15 Creatinine 0.58 Est Glomerular Filtrat Rate mL/min Glucose Level 125 Calcium Level 7.5 L Medications Medication Current Medications Sodium Chloride 1,000 ml @ 100 mls/hr Q10H IV Last administered on 01/25/19 21:10; Admin Dose 100 MLS/HR; Start 01/23/19 at 11:38 IV Flush (NS 3 ml) 3 ml PER PROTOCOL IV Last administered on 01/24/19 19:33; Admin Dose 3 ML; Start 01/23/19 at 12:00 Ondansetron HCl (Zofran Inj) 4 mg Q6H PRN IV NAUSEA/VOMITING Last administered on 01/24/19 19:32; Admin Dose 4 MG; Start 01/23/19 at 12:00 Acetaminophen (Tylenol Tab) 650 mg Q6H PRN PO .PAIN 1-3 OR TEMP; Start 01/23/19 at 12:00 Acetaminophen/ Hydrocodone Bitart ([place] (5/325)) 2 tab Q6H PRN PO .SEVERE PAIN 7-10 Last administered on 01/23/19at 21:25; Admin Dose 2 TAB; Start 01/23/19 at 12:00 Morphine Sulfate (morphine) 2 mg Q4H PRN IV .SEVERE PAIN 7-10 Last administered on 01/24/19at 09:49; Admin Dose 2 MG; Start 01/23/19 at 12:00 Docusate Sodium (Colace) 100 mg Q12H PRN PO .CONSTIPATION; Start 01/23/19 at 12:00 Magnesium Hydroxide (Milk Of Mag) 30 ml DAILY PRN PO .CONSTIPATION; Start 01/23/19 at 12:00 Bisacodyl (Dulcolax) 5 mg DAILY PRN PO .CONSTIPATION; Start 01/23/19 at 12:00 Sodium Biphosphate/ Sodium Phosphate (Fleet Enema) 133 ml DAILY PRN [place] .CONSTIPATION; Start 01/23/19 at 12:00 Zolpidem Tartrate (Ambien) 5 mg QHS PRN PO .INSOMNIA; Start 01/23/19 at 12:00 Morphine Sulfate (morphine) 3 mg Q3H PRN IV SEVERE PAIN LEVEL 7-10; Start 01/24/19 at 17:30 Acetaminophen/ Hydrocodone Bitart ([place] (5/325)) 1 tab Q3H PRN PO MODERATE PAIN LEVEL 4-6; Start 01/24/19 at 17:30 Ferrous Sulfate (Ferrous Sulfate (Ec)) 325 mg TID PO Last administered on 01/25/19at 21:10; Admin Dose 325 MG; Start 01/25/19 at 21:00 Diclofenac Sodium (Voltaren 1% Gel) 4 gm QID TP Last administered on 01/25/19at 21:10; Admin Dose 4 GM; Start 01/25/19 at 21:00 ELEAZAR HUTCHISON MD Jan 25, 2019 23:13
[2019-01-26 02:00] VITALS: BP 139/63; PULSE 94; RESP 19
[2019-01-26] MEDS: HYDROCODONE/APAP (5/325) TAB PO PRN ×2 (04:41→11:48)
[2019-01-26 07:28] VITALS: BP 130/60; PULSE 81; RESP 20
[2019-01-26] MEDS ORDERED: SOD CHLORIDE 0.9% 250 ML IV* ONE (09:22)
[2019-01-26] MEDS: FERROUS SULFATE (EC) 325 MG TAB PO SCH ×3 (09:40→21:23)
[2019-01-26] MEDS: DICLOFENAC SODIUM 1% GEL 100 GM TUBE TP SCH ×4 (09:40→21:23)
[2019-01-26 13:46] VITALS: BP 135/63; PULSE 81; RESP 18
--- NOTE | 2019-01-26 14:40 | PN ---
DATE: 01/26/2019 Second postop day. Stable vital signs. H and H is down to 6.8/20.2, transfused with 1 unit of packe d cells. Slow progress with PT, most probably because of the fear factor. To be transferred to [facility] for further rehabilitation. Postop x-ray shows excellent alignment of the fracture and leg l ength and rotational alignment is satisfactory. Dictated By: ESTEVAN SMALL MD IK/NTS Conf#: [id number] DID#: [id number] CC: ELEAZAR HUTCHISON MD;*EndCC*
--- NOTE | 2019-01-26 19:07 | PN ---
Date/Time of Note Date/Time of Note DATE: 01/26/19 TIME: 19:01 Assessment/Plan VTE Prophylaxis Risk score (from Ns)>0 risk: 12 SCD applied (from Ns): Yes Pharmacological prophylaxis: NA/contraindicated Pharm contraindication: thrombocytopenia, surgical contra Lines/Catheters IV Catheter Type (from [facility]): Saline Lock Urinary Cath still in place: Yes Reason Cath still needed: urinary retention Assessment/Plan Problems: (1) Postoperative anemia due to acute blood loss Status: Acute Comment: S/p PRBC 1 unit this am. Cont. po FeSO4 and recheck H/H in am. (2) Intertrochanteric fracture of right hip Status: Resolved Comment: Doing well POD#2 but very reluctant to work w/ PT. Pain well- controlled o/w. Cont. to encourage PT. Suspect pt. will be too low level for ARU and will have to go to SNF. Reeval tomorrow. Qualifiers: Encounter type: initial encounter Fracture type: closed Fracture alignment: displaced Qualified Codes: S72.141A - Displaced intertrochanteric fracture of right femur, initial encounter for closed fracture (3) Conflicted attitude towards exercise Status: Acute Comment: Cont. to encourage pt. to work w/ PT. (4) Drug-induced constipation Status: Acute Comment: start relistor 12 mcg sq qod tonight. (5) Urge incontinence Status: Chronic Comment: Pt. advised must remove bacon by tomorrow to reduce risk of infection. Will resume pt.'s oxybutynin tonight. Plan d/c bacon tomorrow. Will order bedside commode if necessary. (6) Thrombocytopenia Status: Chronic Comment: Stable and mild. Will monitor. Result Diagram: 01/26/19 0434 01/26/19 0434 Results 24hrs Laboratory Tests Test 01/26/19 04:34 White Blood Count 9.2 Red Blood Count 2.24 L Hemoglobin 6.8 *L Hematocrit 20.0 L Mean Corpuscular Volume 89.3 Mean Corpuscular Hemoglobin 30.4 Mean Corpuscular Hemoglobin Concent 34.0 Red Cell Distribution Width 13.2 Platelet Count 121 L Mean Platelet Volume 11.9 H Immature Granulocytes % 0.400 Neutrophils % 71.6 Lymphocytes % 16.4 Monocytes % 10.7 Eosinophils % 0.7 Basophils % 0.2 Nucleated Red Blood Cells % 0.0 Immature Granulocytes # 0.040 H Neutrophils # 6.6 Lymphocytes # 1.5 Monocytes # 1.0 H Eosinophils # 0.1 Basophils # 0.0 Nucleated Red Blood Cells # 0.0 Prothrombin Time 14.9 Prothrombin Time Ratio 1.2 INR International Normalized Ratio 1.16 Sodium Level 140 Potassium Level 3.6 Chloride Level 112 H Carbon Dioxide Level 22 Anion Gap 6 Blood Urea Nitrogen 14 Creatinine 0.54 Est Glomerular Filtrat Rate mL/min Glucose Level 129 Calcium Level 7.8 L Subjective 24 Hr Interval Summary Constitutional: no complaints, improved (did stand today w/ PT but only minimally so. ) Respiratory: no complaints Cardiovascular: no complaints Gastrointestinal: constipation Genitourinary: no complaints (scared to take out bacon b/c she would have to get up) Musculoskeletal: bone/joint pain (only when she tries to ambulate w/ PT, even w/ diclofenac topically, and oral [place]) Neurologic: no complaints Exam/Review of Systems Exam Vitals VS - Last 72 Hours, by Label Date Temp Pulse Resp B/P (MAP) Pulse Ox O2 O2 Flow FiO2 Time Delivery Rate 01/26/19 98.4 81 18 135/63 98 13:46 (87) 01/26/19 98.1 81 20 130/60 95 07:28 (83) 01/26/19 98.0 94 19 139/63 96 Room Air 02:00 (88) 01/25/19 98.9 90 20 116/58 95 Room Air 20:00 (77) 01/25/19 98.7 91 20 119/58 98 Room Air 14:00 (78) 01/25/19 99.0 89 20 136/64 99 Nasal 07:57 (88) Cannula 01/25/19 97.9 88 17 129/58 100 Room Air 02:00 (81) 01/24/19 98.3 80 18 111/56 100 Room Air 21:50 (74) 01/24/19 98.2 79 18 127/59 100 Room Air 20:51 (81) 01/24/19 98.0 82 17 119/57 100 Room Air 20:20 (77) 01/24/19 Nasal 2.0 19:56 Cannula 01/24/19 98.2 79 17 127/59 100 19:50 (81) 01/24/19 97.6 108 18 144/57 100 19:20 (86) 01/24/19 97.9 83 20 134/63 100 19:05 (86) 01/24/19 98.3 83 20 141/65 100 18:53 (90) 01/24/19 98.3 85 18 142/63 100 18:35 (89) 01/24/19 Nasal 2.0 18:28 Cannula 01/24/19 98.9 76 19 133/54 100 Room Air 18:28 (80) 01/24/19 78 20 114/42 100 Room Air 18:23 (66) 01/24/19 78 19 122/45 100 Room Air 18:18 (70) 01/24/19 88 21 143/53 99 Room Air 18:13 (83) 01/24/19 80 20 132/52 100 Room Air 18:08 (78) 01/24/19 92 14 135/66 100 Room Air 18:03 (89) 01/24/19 76 19 125/49 100 Room Air 17:58 (74) 01/24/19 78 20 125/47 100 Room Air 17:53 (73) 01/24/19 88 12 161/72 89 Room Air 17:48 (101) 01/24/19 84 19 137/62 95 Room Air 17:43 (87) 01/24/19 82 14 131/50 96 Room Air 17:38 (77) 01/24/19 82 17 124/60 96 Room Air 17:33 (81) 01/24/19 82 14 140/56 97 Room Air 17:28 (84) 01/24/19 86 16 140/57 96 Room Air 17:23 (84) 01/24/19 86 15 140/54 96 Room Air 17:18 (82) 01/24/19 88 17 143/57 96 Room Air 17:13 (85) 01/24/19 96 18 151/61 97 Room Air 17:08 (91) 01/24/19 98 19 147/64 98 Room Air 17:03 (91) 01/24/19 92 17 145/72 100 Nasal 2.0 16:58 (96) Cannula 01/24/19 104 19 150/64 100 Nasal 2.0 16:53 (92) Cannula 01/24/19 98 17 158/64 100 Nasal 4.0 16:48 (95) Cannula 01/24/19 108 16 154/69 100 Nasal 4.0 16:43 (97) Cannula 01/24/19 15 156/64 100 Mask 8.0 16:40 (94) 01/24/19 98.6 84 14 156/64 100 Mask 8.0 16:37 (94) 01/24/19 Simple 8.0 16:37 Mask 01/24/19 98.8 81 20 141/64 97 07:16 (89) 01/24/19 98.3 74 17 119/56 100 01:37 (77) 01/23/19 97.9 84 20 121/58 99 20:25 (79) Vital Signs Date Temp Pulse Resp B/P (MAP) Pulse Ox O2 O2 Flow FiO2 Time Delivery Rate 01/26/19 98.4 81 18 135/63 98 13:46 (87) 01/26/19 Room Air 02:00 01/24/19 2.0 19:56 Intake and Output 01/25/19 01/25/19 01/26/19 1515:00 23:00 07:00 IntakeIntake Total 720 ml 1600 ml 920 ml OutputOutput Total 400 ml 700 ml BalanceBalance 720 ml 1200 ml 220 ml Constitutional: alert, oriented, well developed Respiratory: clear to auscultation, normal air movement Cardiovascular: regular rate and rhythm, nl pulses, edema (around R knee); No murmurs/extra sounds, No rub Gastrointestinal: soft, nl liver, spleen, non-tender, bowel sounds; No mass, No rebound or guarding Musculoskeletal: No nl extremities to inspection (RLE wrapped) Extremities: edema (2+ R knee); No cyanosis, No clubbing Neurological: [employer]CH[employer] II-XII intact, nl mental status, nl speech, nl strength Results Results 24hrs Laboratory Tests Test 01/26/19 04:34 White Blood Count 9.2 Red Blood Count 2.24 L Hemoglobin 6.8 *L Hematocrit 20.0 L Mean Corpuscular Volume 89.3 Mean Corpuscular Hemoglobin 30.4 Mean Corpuscular Hemoglobin Concent 34.0 Red Cell Distribution Width 13.2 Platelet Count 121 L Mean Platelet Volume 11.9 H Immature Granulocytes % 0.400 Neutrophils % 71.6 Lymphocytes % 16.4 Monocytes % 10.7 Eosinophils % 0.7 Basophils % 0.2 Nucleated Red Blood Cells % 0.0 Immature Granulocytes # 0.040 H Neutrophils # 6.6 Lymphocytes # 1.5 Monocytes # 1.0 H Eosinophils # 0.1 Basophils # 0.0 Nucleated Red Blood Cells # 0.0 Prothrombin Time 14.9 Prothrombin Time Ratio 1.2 INR International Normalized Ratio 1.16 Sodium Level 140 Potassium Level 3.6 Chloride Level 112 H Carbon Dioxide Level 22 Anion Gap 6 Blood Urea Nitrogen 14 Creatinine 0.54 Est Glomerular Filtrat Rate mL/min Glucose Level 129 Calcium Level 7.8 L Medications Medication Current Medications IV Flush (NS 3 ml) 3 ml PER PROTOCOL IV Last administered on 01/24/19 19:33; Admin Dose 3 ML; Start 01/23/19 at 12:00 Ondansetron HCl (Zofran Inj) 4 mg Q6H PRN IV NAUSEA/VOMITING Last administered on 01/24/19 19:32; Admin Dose 4 MG; Start 01/23/19 at 12:00 Acetaminophen (Tylenol Tab) 650 mg Q6H PRN PO .PAIN 1-3 OR TEMP; Start 01/23/19 at 12:00 Acetaminophen/ Hydrocodone Bitart ([place] (5/325)) 2 tab Q6H PRN PO .SEVERE PAIN 7-10 Last administered on 01/26/19at 11:48; Admin Dose 2 TAB; Start 01/23/19 at 12:00 Morphine Sulfate (morphine) 2 mg Q4H PRN IV .SEVERE PAIN 7-10 Last administered on 01/24/19at 09:49; Admin Dose 2 MG; Start 01/23/19 at 12:00 Docusate Sodium (Colace) 100 mg Q12H PRN PO .CONSTIPATION; Start 01/23/19 at 12:00 Magnesium Hydroxide (Milk Of Mag) 30 ml DAILY PRN PO .CONSTIPATION; Start 01/23/19 at 12:00 Bisacodyl (Dulcolax) 5 mg DAILY PRN PO .CONSTIPATION; Start 01/23/19 at 12:00 Sodium Biphosphate/ Sodium Phosphate (Fleet Enema) 133 ml DAILY PRN NE .CONSTIPATION; Start 01/23/19 at 12:00 Zolpidem Tartrate (Ambien) 5 mg QHS PRN PO .INSOMNIA; Start 01/23/19 at 12:00 Morphine Sulfate (morphine) 3 mg Q3H PRN IV SEVERE PAIN LEVEL 7-10; Start 01/24/19 at 17:30 Acetaminophen/ Hydrocodone Bitart ([place] (5/325)) 1 tab Q3H PRN PO MODERATE PAIN LEVEL 4-6; Start 01/24/19 at 17:30 Ferrous Sulfate (Ferrous Sulfate (Ec)) 325 mg TID PO Last administered on 01/26/19at 13:03; Admin Dose 325 MG; Start 01/25/19 at 21:00 Diclofenac Sodium (Voltaren 1% Gel) 4 gm QID TP Last administered on 01/26/19at 18:05; Admin Dose 4 GM; Start 01/25/19 at 21:00 ELEAZAR HUTCHISON MD Jan 26, 2019 19:06
[2019-01-26 19:31] VITALS: BP 143/63; PULSE 92; RESP 18
[2019-01-26] MEDS: METHYLNALTREXONE 12 MG/0.6 ML VIAL SC SCH (21:23)
[2019-01-27 02:14] VITALS: BP 145/56; PULSE 88; RESP 16
[2019-01-27 08:08] VITALS: BP 150/68; PULSE 90; RESP 18
[2019-01-27] MEDS: DICLOFENAC SODIUM 1% GEL 100 GM TUBE TP SCH ×4 (08:53→22:08)
[2019-01-27] MEDS: FERROUS SULFATE (EC) 325 MG TAB PO SCH ×3 (08:57→22:08)
[2019-01-27] MEDS: OXYBUTYNIN (XL) 5 MG TAB PO SCH (08:57)
[2019-01-27] MEDS: NACL 0.9% 3 ML SYG IV SCH (08:58)
[2019-01-27] MEDS: morphine 2 MG INJ IV PRN (14:21)
[2019-01-27 14:29] VITALS: BP 158/68; PULSE 86; RESP 18
--- NOTE | 2019-01-27 18:52 | PN ---
Date/Time of Note Date/Time of Note DATE: 01/27/19 TIME: 18:47 Assessment/Plan VTE Prophylaxis Risk score (from Ns)>0 risk: 11 SCD applied (from Ns): Yes Pharmacological prophylaxis: LMWH Lines/Catheters IV Catheter Type (from Nrs): Saline Lock Urinary Cath still in place: No Assessment/Plan Problems: (1) Intertrochanteric fracture of right hip Status: Resolved Comment: POD#3. Pt. doing poorly due to non-cooperative w/ PT and even turning. Refused at ARU. Plan d/c to SNF Qualifiers: Encounter type: initial encounter Fracture type: closed Fracture alignment: displaced Qualified Codes: S72.141A - Displaced intertrochanteric fracture of right femur, initial encounter for closed fracture (2) Conflicted attitude towards exercise Status: Acute Comment: Pt. continues to refuse PT and even to be turned. Explained to pt. she cannot go home in this state. Plan transfer to SNF. (3) Postoperative anemia due to acute blood loss Status: Acute Comment: Improved following transfusion. Cont. po FeSO4 (4) Urge incontinence Status: Chronic Comment: Ackerman cath d/c'ed. Cont. oxybutynin. Encourage use of bedside commode. (5) Thrombocytopenia Status: Resolved Comment: Platelets normalized. Perhaps only low following acute injury. Result Diagram: 01/27/19 0457 01/27/19 0457 Results 24hrs Laboratory Tests Test 01/27/19 04:57 01/27/19 06:19 White Blood Count 8.9 Red Blood Count 2.81 #L Hemoglobin 8.3 #L Hematocrit 25.1 #L Mean Corpuscular Volume 89.3 Mean Corpuscular Hemoglobin 29.5 Mean Corpuscular Hemoglobin Concent 33.1 Red Cell Distribution Width 13.2 Platelet Count 154 # Mean Platelet Volume 11.2 H Immature Granulocytes % 0.600 H Neutrophils % 68.2 Lymphocytes % 19.4 Monocytes % 9.2 Eosinophils % 2.2 Basophils % 0.4 Nucleated Red Blood Cells % 1.0 H Immature Granulocytes # 0.050 H Neutrophils # 6.1 Lymphocytes # 1.7 Monocytes # 0.8 Eosinophils # 0.2 Basophils # 0.0 Nucleated Red Blood Cells # 0.1 H Prothrombin Time 14.1 Prothrombin Time Ratio 1.1 INR International Normalized Ratio 1.08 Sodium Level 140 Potassium Level 3.7 Chloride Level 111 H Carbon Dioxide Level 24 Anion Gap 5 Blood Urea Nitrogen 15 Creatinine 0.54 Est Glomerular Filtrat Rate mL/min Glucose Level 118 Calcium Level 8.0 L Lab Scanned Report BLOOD TRANSFUSION Subjective 24 Hr Interval Summary Constitutional: no complaints, improved Respiratory: no complaints Cardiovascular: no complaints Gastrointestinal: no complaints Genitourinary: no complaints Musculoskeletal: bone/joint pain (R hip to knee only when trying to ambulate; refuses PT, refuses to be turned) Neurologic: no complaints Exam/Review of Systems Exam Vitals VS - Last 72 Hours, by Label Date Temp Pulse Resp B/P (MAP) Pulse Ox O2 O2 Flow FiO2 Time Delivery Rate 01/27/19 98.6 86 18 158/68 92 14:29 (98) 01/27/19 98.6 90 18 150/68 93 08:08 (95) 01/27/19 99.6 88 16 145/56 92 02:14 (85) 01/26/19 98.7 92 18 143/63 91 19:31 (89) 01/26/19 98.4 81 18 135/63 98 13:46 (87) 01/26/19 98.1 81 20 130/60 95 07:28 (83) 01/26/19 98.0 94 19 139/63 96 Room Air 02:00 (88) 01/25/19 98.9 90 20 116/58 95 Room Air 20:00 (77) 01/25/19 98.7 91 20 119/58 98 Room Air 14:00 (78) 01/25/19 99.0 89 20 136/64 99 Nasal 07:57 (88) Cannula 01/25/19 97.9 88 17 129/58 100 Room Air 02:00 (81) 01/24/19 98.3 80 18 111/56 100 Room Air 21:50 (74) 01/24/19 98.2 79 18 127/59 100 Room Air 20:51 (81) 01/24/19 98.0 82 17 119/57 100 Room Air 20:20 (77) 01/24/19 Nasal 2.0 19:56 Cannula 01/24/19 98.2 79 17 127/59 100 19:50 (81) 01/24/19 97.6 108 18 144/57 100 19:20 (86) 01/24/19 97.9 83 20 134/63 100 19:05 (86) 01/24/19 98.3 83 20 141/65 100 18:53 (90) Vital Signs Date Temp Pulse Resp B/P (MAP) Pulse Ox O2 O2 Flow FiO2 Time Delivery Rate 01/27/19 98.6 86 18 158/68 92 14:29 (98) 01/26/19 Room Air 02:00 01/24/19 2.0 19:56 Intake and Output 01/26/19 01/26/19 01/27/19 1515:00 23:00 07:00 IntakeIntake Total 03851 ml 600 ml OutputOutput Total 650 ml 250 ml BalanceBalance 76561 ml -50 ml -250 ml Constitutional: alert, oriented, well developed Psych: no complaints, nl mood/affect Respiratory: clear to auscultation, normal air movement Cardiovascular: regular rate and rhythm, nl pulses, edema (R knee); No murmurs/extra sounds, No rub Gastrointestinal: soft, nl liver, spleen, non-tender, bowel sounds; No mass, No rebound or guarding Musculoskeletal: No nl extremities to inspection (RLE dressed) Extremities: normal pulses; No cyanosis, No clubbing, No edema Neurological: [employer] II-XII intact, nl mental status, nl speech, nl strength Results Results 24hrs Laboratory Tests Test 01/27/19 04:57 01/27/19 06:19 White Blood Count 8.9 Red Blood Count 2.81 #L Hemoglobin 8.3 #L Hematocrit 25.1 #L Mean Corpuscular Volume 89.3 Mean Corpuscular Hemoglobin 29.5 Mean Corpuscular Hemoglobin Concent 33.1 Red Cell Distribution Width 13.2 Platelet Count 154 # Mean Platelet Volume 11.2 H Immature Granulocytes % 0.600 H Neutrophils % 68.2 Lymphocytes % 19.4 Monocytes % 9.2 Eosinophils % 2.2 Basophils % 0.4 Nucleated Red Blood Cells % 1.0 H Immature Granulocytes # 0.050 H Neutrophils # 6.1 Lymphocytes # 1.7 Monocytes # 0.8 Eosinophils # 0.2 Basophils # 0.0 Nucleated Red Blood Cells # 0.1 H Prothrombin Time 14.1 Prothrombin Time Ratio 1.1 INR International Normalized Ratio 1.08 Sodium Level 140 Potassium Level 3.7 Chloride Level 111 H Carbon Dioxide Level 24 Anion Gap 5 Blood Urea Nitrogen 15 Creatinine 0.54 Est Glomerular Filtrat Rate mL/min Glucose Level 118 Calcium Level 8.0 L Lab Scanned Report BLOOD TRANSFUSION Medications Medication Current Medications IV Flush (NS 3 ml) 3 ml PER PROTOCOL IV Last administered on 01/27/19 08:58; Admin Dose 3 ML; Start 01/23/19 at 12:00 Ondansetron HCl (Zofran Inj) 4 mg Q6H PRN IV NAUSEA/VOMITING Last administered on 01/24/19 19:32; Admin Dose 4 MG; Start 01/23/19 at 12:00 Acetaminophen (Tylenol Tab) 650 mg Q6H PRN PO .PAIN 1-3 OR TEMP; Start 01/23/19 at 12:00 Acetaminophen/ Hydrocodone Bitart ([place] (5/325)) 2 tab Q6H PRN PO .SEVERE PAIN 7-10 Last administered on 01/26/19at 11:48; Admin Dose 2 TAB; Start 01/23/19 at 12:00 Morphine Sulfate (morphine) 2 mg Q4H PRN IV .SEVERE PAIN 7-10 Last administered on 01/27/19at 14:21; Admin Dose 2 MG; Start 01/23/19 at 12:00 Docusate Sodium (Colace) 100 mg Q12H PRN PO .CONSTIPATION; Start 01/23/19 at 12:00 Magnesium Hydroxide (Milk Of Mag) 30 ml DAILY PRN PO .CONSTIPATION; Start 01/23/19 at 12:00 Bisacodyl (Dulcolax) 5 mg DAILY PRN PO .CONSTIPATION; Start 01/23/19 at 12:00 Sodium Biphosphate/ Sodium Phosphate (Fleet Enema) 133 ml DAILY PRN [place] .CONSTIPATION; Start 01/23/19 at 12:00 Zolpidem Tartrate (Ambien) 5 mg QHS PRN PO .INSOMNIA; Start 01/23/19 at 12:00 Morphine Sulfate (morphine) 3 mg Q3H PRN IV SEVERE PAIN LEVEL 7-10; Start 01/24/19 at 17:30 Acetaminophen/ Hydrocodone Bitart ([place] (5/325)) 1 tab Q3H PRN PO MODERATE PAIN LEVEL 4-6; Start 01/24/19 at 17:30 Ferrous Sulfate (Ferrous Sulfate (Ec)) 325 mg TID PO Last administered on 01/27/19at 12:49; Admin Dose 325 MG; Start 01/25/19 at 21:00 Diclofenac Sodium (Voltaren 1% Gel) 4 gm QID TP Last administered on 01/27/19at 17:16; Admin Dose 4 GM; Start 01/25/19 at 21:00 Methylnaltrexone [place] (Relistor) 12 mg Q48H SC Last administered on 01/26/19at 21:23; Admin Dose 12 MG; Start 01/26/19 at 19:00 Oxybutynin Chloride (Ditropan Xl) 10 mg DAILY PO Last administered on 01/27/19at 08:57; Admin Dose 10 MG; Start 01/27/19 at 09:00 ELEAZAR HUTCHISON MD Jan 27, 2019 18:52
[2019-01-27 19:28] VITALS: BP 153/69; PULSE 87; RESP 16
[2019-01-28 02:31] VITALS: BP 146/67; PULSE 83; RESP 16
[2019-01-28 07:45] VITALS: BP 141/64; PULSE 84; RESP 17
[2019-01-28] MEDS ORDERED: ENOXAPARIN 30 MG/0.3 ML SYG SC SCH (09:00)
[2019-01-28] MEDS: FERROUS SULFATE (EC) 325 MG TAB PO SCH ×2 (09:25→12:55)
[2019-01-28] MEDS: OXYBUTYNIN (XL) 5 MG TAB PO SCH (09:25)
[2019-01-28] MEDS: DICLOFENAC SODIUM 1% GEL 100 GM TUBE TP SCH ×3 (09:31→18:32)
[2019-01-28 15:31] VITALS: BP 133/63; PULSE 85; RESP 16
--- NOTE | 2019-01-28 18:12 | DS ---
Date/Time of Note Date/Time of Note DATE: 01/28/19 TIME: 18:10 Discharge Summary Admission/Discharge Info Admit Date/Time Jan 23, 2019 at 10:50 Discharge Date/Time 01/28/2019 @ 1800 Discharge Diagnosis R hip fracture s/p ORIF Patient Condition: Good Consults In-Sofie Hoffman, ortho Procedures Open reduction and internal fixation of the intertrochanteric and subtrochanteric fracture of the right hip. Hx of Present Illness 83 y/o C F w/ h/o osteoporosis, urge incontinence, and recent h/o c.diff in [facility] until last night when she was working in the garden. Unable to detail how it happened but pt. fell and had immediate pain in R hip. Could not get up. Was found this am by son after laying in garden all night. Called 911 and brought to ER by ambulance. XR shows R comminuted, displaced femoral neck fracture. Hospital Course Pt. taken on HD#2 for ORIF of R hip. Tolerated procedure well although w/ some post-op anemia requiring PRBC 1 unit. Pt. however, has had only limited cooperation w/ PT and has been highly resistant to doing any work plagued by fear and anxiety and refusal. Today w/ much urging and help took a single step. This has qualified her for ARU. Pt. has been advised that she will due aggressive PT tid in ARU. Pt. understands. Home Meds Reported Medications [place]sey-3 Fatty Acids/Fish Oil ([place]sey 3 Fish Oil Softgel) 1 Each Capsule.dr, 1 EACH PO DAILY 01/23/19 Vitamin B Complex* (Vitamin B Complex*) 1 Each Tablet, 1 TAB PO DAILY, TAB 01/23/19 Calcium Carbonate-Vitamin D3 (Calcium 600 + D Softgel) 1 Each Capsule, 2 CAP PO DAILY, CAP 01/23/19 Cholecalciferol (Vitamin D3) 5,000 Unit Tablet, 5000 UNIT PO DAILY, TAB 01/23/19 Oxybutynin Chloride* (Ditropan* XL) 10 Mg Tab.er.24, 10 MG PO DAILY, TAB.SA 01/23/19 Follow-up Plan to ARU Primary Care Provider Markus Churchill MD Time spent on discharge: > 30 minutes Pending Labs Laboratory Tests Test 01/28/19 04:41 Prothrombin Time 14.3 Sec (11.9-14.9) Prothrombin Time Ratio 1.1 INR International Normalized Ratio 1.10 ELEAZAR HUTCHISON MD Jan 28, 2019 18:12
[2019-01-28] MEDS: METHYLNALTREXONE 12 MG/0.6 ML VIAL SC SCH (18:38)
== END 2019-01-28 18:50 | DRG 481 ==
LOC: E/R 09:29 → 2NE 10:50
PROVIDERS: ADMIT Internal Medicine; ATTEND Internal Medicine
PROC: 30233R1 Transfusion of Nonautologous Platelets into Peripheral Vein, Percutaneous Approach (ICD-10-PCS; 2019-01-24)
PROC: 0QS606Z Reposition Right Upper Femur with Intramedullary Internal Fixation Device, Open Approach (ICD-10-PCS; principal; 2019-01-24 13:00)
PROC: 30233N1 Transfusion of Nonautologous Red Blood Cells into Peripheral Vein, Percutaneous Approach (ICD-10-PCS; 2019-01-26)
DX: S72.141A Displaced intertrochanteric fracture of right femur, initial encounter for closed fracture (principal); D62 Acute posthemorrhagic anemia; D69.6 Thrombocytopenia, unspecified; N39.41 Urge incontinence; S72.21XA Displaced subtrochanteric fracture of right femur, initial encounter for closed fracture; M81.0 Age-related osteoporosis without current pathological fracture; K59.03 Drug induced constipation; W18.30XA Fall on same level, unspecified, initial encounter; Y92.017 Garden or yard in single-family (private) house as the place of occurrence of the external cause
CPT/HCPCS: 36415; 36430; 71045; 72170; 73510; 73530; 80048; 80053; 81001; 83036; 83735; 84443; 84484; 85025; 85610; 85730; 86644; 86850; 86900; 86901; 86920; 86945; 93005; 96374; 96375; 97110; 97163; 97530; C1713; J0131; J0690; J1100; J1170; J1650; J2270; J2405; J2710; J3010; J7030; J7040; P9016; P9035

== ENCOUNTER 2019-01-28 16:26 | Inpatient (IN) | payer MEDICARE, BC ==
[~2019-01-28] VITALS: Ht 149.9 cm; Wt 58.3 kg
[~2019-01-28 16:26] MED LIST: CALC1CAP9 PO; CHOL500010 PO; OMEG1CAP30 PO; OXYB10TA6 PO; VIT1TABL46 PO
[2019-01-28 20:00] VITALS: Ht 149.9 cm; Wt 58.3 kg
[2019-01-28] MEDS ORDERED: NA PHOSPHATE/BIPHOS 133 ML ENEMA PR PRN (20:00)
[2019-01-28] MEDS ORDERED: morphine 4 MG/ML VIAL IV PRN (20:00)
[2019-01-28] MEDS ORDERED: HYDROCODONE/APAP (5/325) TAB PO PRN (20:00)
[2019-01-28] MEDS ORDERED: BISACODYL (EC) 5 MG TAB PO PRN (20:00)
[2019-01-28] MEDS ORDERED: ACETAMINOPHEN 325 MG TAB PO PRN (20:00)
[2019-01-28] MEDS ORDERED: ZOLPIDEM 5 MG TAB PO PRN (20:00)
[2019-01-28] MEDS ORDERED: DOCUSATE SODIUM 100 MG CAP PO PRN (20:00)
[2019-01-28] MEDS ORDERED: morphine 2 MG INJ IV PRN (20:00)
[2019-01-28] MEDS ORDERED: MAGNESIUM HYDROXIDE 30ML CUP PO PRN (20:00)
[2019-01-28] MEDS ORDERED: ONDANSETRON 4 MG INJ IV PRN (20:00)
[2019-01-28 20:30] VITALS: BP 130/61; PULSE 85; RESP 18
[2019-01-28] MEDS: FERROUS SULFATE (EC) 325 MG TAB PO SCH (20:37)
[2019-01-28] MEDS: DICLOFENAC SODIUM 1% GEL 100 GM TUBE TP SCH (21:29)
[2019-01-28] MEDS ORDERED: PENDING SANTYL ORDER FOR WOUND CARE XX PRN (22:30)
[2019-01-29 02:30] VITALS: BP 144/62; PULSE 84; RESP 18
[2019-01-29] MEDS: HYDROCODONE/APAP (5/325) TAB PO PRN ×2 (05:35→09:35)
[2019-01-29 08:00] VITALS: BP 135/65; PULSE 81; RESP 18
[2019-01-29] MEDS ORDERED: TRIMETHOPRIM/SULFAMETHOX (DS) TAB PO SCH (09:30)
[2019-01-29] MEDS: OXYBUTYNIN (XL) 5 MG TAB PO SCH (09:33)
[2019-01-29] MEDS: FERROUS SULFATE (EC) 325 MG TAB PO SCH ×3 (09:33→20:31)
[2019-01-29] MEDS: DICLOFENAC SODIUM 1% GEL 100 GM TUBE TP SCH ×4 (09:34→20:31)
[2019-01-29] MEDS: ENOXAPARIN 30 MG/0.3 ML SYG SC SCH (10:09)
--- NOTE | 2019-01-29 10:31 | CONS ---
DATE OF ADMISSION: 01/28/2019 DATE OF CONSULTATION: 01/29/2019 REHABILITATION POST ADMISSION PHYSICIAN EVALUATION REHABILITATION IMPAIRMENT CATEGORY: Right intertrochanteric hip fracture status post ORIF. ACTIVE COMORBIDITIES: 1. Acute pain syndrome. 2. Anemia. 3. Osteoarthritis. 4. Status post Clostridium difficile. 5. Urinary urge incontinence. 6. Impairments in self-care and mobility. HISTORY OF PRESENT ILLNESS: The patient is an 83-year-old female who is status post a ground level fall while working in her garden with resultant right intertrochanteric hip fracture. The patient apparently fell in the garden and was unable to stand or walk and spent the night lying there and was discovered by her son the next morning. The patient noted to have severely comminuted and displaced, unstable intertrochanteric fracture and underwent right hip ORIF on January 24, 2019. Her hospital course was notable for significant pain, anemia, thrombocytopenia, which improved, and significant impairments in self-care and mobility as compared to baseline. The patient has been cleared to transfer to the rehabilitation unit for comprehensive interdisciplinary rehab care. FUNCTIONAL HISTORY: Prior to recent events, she was independent in self-care tasks and mobility. Currently, the patient requires maximal assist for self- care and mobility tasks. I have reviewed the preadmission screen and the patient's current functional status is consistent with the preadmission screen. FAMILY AND SOCIAL HISTORY: The patient reports living at home alone but she does have very supportive sons. PAST MEDICAL HISTORY: 1. History of Clostridium difficile, which has resolved. 2. Osteoarthritis. 3. History of left hip fracture with ORIF. CURRENT MEDICATIONS: 1. Voltaren cream. 2. Colace 100 mg p.o. b.i.d. p.r.n. 3. Lovenox 30 mg subcutaneous daily. 4. Ferrous sulfate 325 p.o. t.i.d. 5. [place] p.r.n. 6. Relistor 12 mg q. 48 hours. 7. Ditropan 10 mg p.o. daily. 8. Ambien p.r.n. ALLERGIES: THE PATIENT WITH NO KNOWN DRUG ALLERGIES. PHYSICAL EXAMINATION: VITAL SIGNS: The patient is currently afebrile with stable vital signs. HEENT: Extraocular motions are intact. Oropharynx clear. NECK: Supple. LUNGS: Clear anteriorly. CARDIAC: S1, S2. ABDOMEN: Soft, nontender, positive bowel sounds. NEUROLOGIC: She is awake and alert and oriented x3. She will follow simple 1- step commands. Cranial nerves are grossly intact. She has good strength in bilateral upper extremity and the left lower extremity. Dorsiflexion and plantar flexion intact on the right. PLAN: The patient has been admitted for comprehensive interdisciplinary acute rehab and is anticipated to tolerate 3 hours of daily therapy in divided doses for at least 5/7 days a week. The treatment plan will include: 1. Physical therapy to focus on bed mobility, transfers, and household ambulation with the goal of having the patient reach a standby assist level. 2. Occupational therapy to focus on hygiene, grooming, dressing, bathing, and toileting activities with goal of having patient reach a standby assist level. 3. Rehabilitation nursing for carryover of therapeutic interventions, the goal of continent of bowel and bladder, and the goal of pain adequately managed on oral medications. REHABILITATION BARRIER: Pain. INTERVENTION FOR BARRIER: Interdisciplinary approach. ESTIMATED LENGTH OF STAY: 14 days. DISPOSITION GOAL: Home with family. I acknowledge that I performed a full physical examination on this patient within 24 hours of admission to the rehabilitation unit. I believe the patient is a good candidate for comprehensive interdisciplinary rehab care and is anticipated to make reasonable goals in a reasonable period of time as outlined above. Dictated By: DAE TAN/CELY Conf#: [id number] DID#: [id number] CC: ELEAZAR HUTCHISON MD;*EndCC* MTDD
[2019-01-29 14:00] VITALS: BP 130/70; RESP 18
--- NOTE | 2019-01-29 18:18 | PN ---
Date/Time of Note Date/Time of Note DATE: 01/29/19 TIME: 18:15 Assessment/Plan VTE Prophylaxis Risk [place] [facility] [place] risk: 12 SCD applied (from [facility] [place]): Yes Pharmacological prophylaxis: LMWH Lines/Catheters IV C[facility]ter Type (from [facility] Saline Lock Urinary Cath still in place: No Assessment/Plan Problems: (1) Urinary tract infection Status: Acute Comment: WBC > 182 in urine. Culture sent. Pt. concerned about c.diff. Will order macrobid which concentrates in urine and should have low-risk of c.diff (2) History of Clostridioides difficile colitis Status: Resolved Comment: Florastor bid. (3) Urge incontinence Status: Chronic Comment: Cont. oxybutynin (4) Postoperative anemia due to acute blood loss Status: Acute Comment: Stable. Cont. FeSO4 (5) Drug-induced constipation Status: Acute Comment: Cont. methylnaltrexone qod (6) Intertrochanteric fracture of right hip Status: Resolved Comment: Cont. PT in ARU (7) Conflicted attitude towards exercise Status: Acute Comment: Cont. PT in ARU Result Diagram: 01/29/19 0647 01/29/19 0647 Results 24hrs Laboratory Tests Test 01/29/19 05:30 01/29/19 06:47 Urine Color JOHANNA Urine Clarity CLOUDY A Urine pH 7.0 Urine Specific [place] 1.019 Urine Ketones NEGATIVE Urine Nitrite NEGATIVE Urine Bilirubin NEGATIVE Urine Urobilinogen NEGATIVE Urine Leukocyte Esterase 2+ H Urine Microscopic RBC 3 Urine Microscopic WBC > 182 H Urine Bacteria MODERATE Urine Hemoglobin NEGATIVE Urine Glucose NEGATIVE Urine Total Protein 1+ H White Blood Count 8.0 Red Blood Count 2.72 L Hemoglobin 8.2 L Hematocrit 24.8 L Mean Corpuscular Volume 91.2 Mean Corpuscular Hemoglobin 30.1 Mean Corpuscular Hemoglobin Concent 33.1 Red Cell Distribution Width 13.9 Platelet Count 181 Mean Platelet Volume 11.2 H Immature Granulocytes % 0.900 H Neutrophils % 60.5 Lymphocytes % 24.7 Monocytes % 9.2 Eosinophils % 4.1 Basophils % 0.6 Nucleated Red Blood Cells % 1.5 H Immature Granulocytes # 0.070 H Neutrophils # 4.8 Lymphocytes # 2.0 Monocytes # 0.7 Eosinophils # 0.3 Basophils # 0.1 Nucleated Red Blood Cells # 0.1 H Sodium Level 139 Potassium Level 3.9 Chloride Level 108 Carbon Dioxide Level 26 Anion Gap 5 Blood Urea Nitrogen 17 Creatinine 0.59 Est Glomerular Filtrat Rate mL/min Glucose Level 104 Calcium Level 8.0 L Total Bilirubin 1.0 Direct Bilirubin 0.00 Indirect Bilirubin 1.0 Aspartate Amino Transf (AST/SGOT) 28 Alanine Aminotransferase (ALT/SGPT) 40 Alkaline Phosphatase 38 L Total Protein 5.1 L Albumin 2.6 L Globulin 2.50 Albumin/Globulin Ratio 1.04 Subjective 24 Hr Interval Summary Constitutional: no complaints, improved Respiratory: no complaints Cardiovascular: no complaints Gastrointestinal: no complaints Genitourinary: no complaints Musculoskeletal: bone/joint pain (only when she tries to ambulate) Neurologic: no complaints Exam/Review of Systems Exam Vitals VS - Last 72 Hours, by Label Date Temp Pulse Resp B/P (MAP) Pulse Ox O2 O2 Flow FiO2 Time Delivery Rate 01/29/19 98.2 81 18 135/65 98 Room Air 08:00 (88) 01/29/19 98.1 84 18 144/62 96 Room Air 02:30 (89) 01/28/19 97.9 85 18 130/61 93 Room Air 20:30 (84) Vital Signs Date Temp Pulse Resp B/P (MAP) Pulse Ox O2 O2 Flow FiO2 Time Delivery Rate 01/29/19 98.2 81 18 135/65 98 Room Air 08:00 (88) Intake and Output 01/28/19 01/28/19 01/29/19 1515:00 23:00 07:00 IntakeIntake Total 200 ml 200 ml OutputOutput Total 200 ml BalanceBalance 200 ml 0 ml Constitutional: alert, oriented, well developed Respiratory: clear to auscultation, normal air movement Cardiovascular: regular rate and rhythm, nl pulses, edema (1+ RLE); No murmurs/extra sounds, No rub Gastrointestinal: soft, nl liver, spleen, non-tender, bowel sounds; No mass, No rebound or guarding Musculoskeletal: nl extremities to inspection Extremities: normal pulses, edema (1+ RLE); No cyanosis, No clubbing Neurological: [employer] II-XII intact, nl mental status, nl speech, nl strength Results Results 24hrs Laboratory Tests Test 01/29/19 05:30 01/29/19 06:47 Urine Color JOHANNA Urine Clarity CLOUDY A Urine pH 7.0 Urine Specific [place] 1.019 Urine Ketones NEGATIVE Urine Nitrite NEGATIVE Urine Bilirubin NEGATIVE Urine Urobilinogen NEGATIVE Urine Leukocyte Esterase 2+ H Urine Microscopic RBC 3 Urine Microscopic WBC > 182 H Urine Bacteria MODERATE Urine Hemoglobin NEGATIVE Urine Glucose NEGATIVE Urine Total Protein 1+ H White Blood Count 8.0 Red Blood Count 2.72 L Hemoglobin 8.2 L Hematocrit 24.8 L Mean Corpuscular Volume 91.2 Mean Corpuscular Hemoglobin 30.1 Mean Corpuscular Hemoglobin Concent 33.1 Red Cell Distribution Width 13.9 Platelet Count 181 Mean Platelet Volume 11.2 H Immature Granulocytes % 0.900 H Neutrophils % 60.5 Lymphocytes % 24.7 Monocytes % 9.2 Eosinophils % 4.1 Basophils % 0.6 Nucleated Red Blood Cells % 1.5 H Immature Granulocytes # 0.070 H Neutrophils # 4.8 Lymphocytes # 2.0 Monocytes # 0.7 Eosinophils # 0.3 Basophils # 0.1 Nucleated Red Blood Cells # 0.1 H Sodium Level 139 Potassium Level 3.9 Chloride Level 108 Carbon Dioxide Level 26 Anion Gap 5 Blood Urea Nitrogen 17 Creatinine 0.59 Est Glomerular Filtrat Rate mL/min Glucose Level 104 Calcium Level 8.0 L Total Bilirubin 1.0 Direct Bilirubin 0.00 Indirect Bilirubin 1.0 Aspartate Amino Transf (AST/SGOT) 28 Alanine Aminotransferase (ALT/SGPT) 40 Alkaline Phosphatase 38 L Total Protein 5.1 L Albumin 2.6 L Globulin 2.50 Albumin/Globulin Ratio 1.04 Medications Medication Current Medications Ferrous Sulfate (Ferrous Sulfate (Ec)) 325 mg TID PO Last administered on 01/29/19at 14:37; Admin Dose 325 MG; Start 01/28/19 at 21:00 Zolpidem Tartrate (Ambien) 5 mg HS PRN PO INSOMNIA; Start 01/28/19 at 20:00 Acetaminophen (Tylenol Tab) 650 mg Q6H PRN PO MILD PAIN(1-3)OR ELEVATED TEMP; Start 01/28/19 at 20:00 Bisacodyl (Dulcolax) 5 mg DAILY PRN PO CONSTIPATION; Start 01/28/19 at 20:00 Diclofenac Sodium (Voltaren 1% Gel) 4 gm QID TP Last administered on 01/29/19at 14:37; Admin Dose 4 GM; Start 01/28/19 at 21:00 Docusate Sodium (Colace) 100 mg Q12 PRN PO CONSTIPATION; Start 01/28/19 at 20:00 Enoxaparin Sodium (Lovenox) 30 mg DAILY SC Last administered on 01/29/19at 10:09; Admin Dose 30 MG; Start 01/29/19 at 09:00 Acetaminophen/ Hydrocodone Bitart ([place] (5/325)) 2 tab Q6H PRN PO SEVERE PAIN LEVEL 7-10; Start 01/28/19 at 20:00 Acetaminophen/ Hydrocodone Bitart ([place] (5/325)) 1 tab Q3H PRN PO MODERATE PAIN LEVEL 4-6 Last administered on 01/29/19at 09:35; Admin Dose 1 TAB; Start 01/28/19 at 20:00 Magnesium Hydroxide (Milk Of Mag) 30 ml DAILY PRN PO CONSTIPATION; Start 01/28/19 at 20:00 Methylnaltrexone [place] (Relistor) 12 mg Q48H SC ; Start 01/30/19 at 18:00 Morphine Sulfate (morphine) 2 mg Q4H PRN IV MODERATE PAIN LEVEL 4-6; Start 01/28/19 at 20:00 Morphine Sulfate (morphine) 3 mg Q3H PRN IV SEVERE PAIN LEVEL 7-10; Start 01/28/19 at 20:00 Ondansetron HCl (Zofran Inj) 4 mg Q6H PRN IV NAUSEA AND/OR VOMITING; Start 01/28/19 at 20:00 Oxybutynin Chloride (Ditropan Xl) 10 mg DAILY PO Last administered on 01/29/19at 09:33; Admin Dose 10 MG; Start 01/29/19 at 09:00 Sodium Biphosphate/ Sodium Phosphate (Fleet Enema) 133 ml DAILY PRN [place] CONSTIPATION; Start 01/28/19 at 20:00 Miscellaneous Information (Pending [facility] Order For Wound Care) 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 PRN XX WOUND CARE; Start 01/28/19 at 22:30 Trimethoprim/ Sulfamethoxazole (Bactrim (Ds)) 1 tab BID PO ; Start 01/29/19 at 09:30 ELEAZAR HUTCHISON MD Jan 29, 2019 18:18
[2019-01-29 20:30] VITALS: BP 112/67; PULSE 74; RESP 18
[2019-01-29] MEDS: NITROFURANTOIN (SR) 100 MG CAP PO SCH (21:21)
[2019-01-29] MEDS: SACCHAROMYCES BOULARDII 250 MG CAP PO SCH (21:23)
[2019-01-29] MEDS ORDERED: LACTULOSE 30ML CUP PO PRN (23:00)
[2019-01-29] MEDS ORDERED: BISACODYL 10 MG SUPP PR PRN (23:00)
[2019-01-29] MEDS ORDERED: MAGNESIUM HYDROXIDE 30ML CUP PO PRN (23:00)
[2019-01-30 02:10] VITALS: BP 145/69; PULSE 70; RESP 20
[2019-01-30] MEDS: HYDROCODONE/APAP (5/325) TAB PO PRN (06:56)
[2019-01-30 08:00] VITALS: BP 155/74; PULSE 82; RESP 18
[2019-01-30] MEDS: SACCHAROMYCES BOULARDII 250 MG CAP PO SCH ×2 (09:21→20:17)
[2019-01-30] MEDS: DOCUSATE SODIUM 100 MG CAP PO SCH ×2 (09:22→20:18)
[2019-01-30] MEDS: OXYBUTYNIN (XL) 5 MG TAB PO SCH (09:23)
[2019-01-30] MEDS: DICLOFENAC SODIUM 1% GEL 100 GM TUBE TP SCH ×4 (09:23→20:17)
[2019-01-30] MEDS: NITROFURANTOIN (SR) 100 MG CAP PO SCH ×2 (09:23→20:17)
[2019-01-30] MEDS: FERROUS SULFATE (EC) 325 MG TAB PO SCH ×3 (09:23→20:17)
[2019-01-30] MEDS: ENOXAPARIN 30 MG/0.3 ML SYG SC SCH (09:24)
[2019-01-30 09:32] VITALS: BP 136/69; PULSE 80; RESP 18
[2019-01-30 14:57] VITALS: BP 157/63; PULSE 81; RESP 18
--- NOTE | 2019-01-30 16:22 | PN ---
Date/Time of Note Date/Time of Note DATE: 01/30/19 TIME: 16:16 Assessment/Plan VTE Prophylaxis Risk score (from Ns)>0 risk: 11 SCD applied (from Ns): Yes SCD contraindicated: low risk/ambulating, other Pharmacological prophylaxis: other Lines/Catheters IV Catheter Type (from Nrsg): Saline Lock Central line still needed: No Urinary Cath still in place: No Assessment/Plan Problems: (1) Hip fracture Status: Acute Comment: PT per ARU (2) Urinary tract infection Status: Acute Comment: On Macrobid (3) Anemia Status: Acute Comment: post-op blood loss. On FeSO4 supplements (4) Nausea Comment: May be secondary to [place]. Switch to Percocet see if less nausea producing with similar pain control Result Diagram: 01/29/19 0647 01/29/19 0647 Subjective 24 Hr Interval Summary Free Text/Dictation Patient complain of nausea and poor appetite. Exam/Review of Systems Exam Vitals Vital Signs Date Temp Pulse Resp B/P (MAP) Pulse Ox O2 O2 Flow FiO2 Time Delivery Rate 01/30/19 98.2 81 18 157/63 95 Room Air 14:57 (94) Intake and Output 01/29/19 01/29/19 01/30/19 1515:00 23:00 07:00 IntakeIntake Total 1000 ml 350 ml OutputOutput Total 500 ml 200 ml BalanceBalance 500 ml 150 ml Exam Sons at bedside Constitutional: alert, oriented, well developed Neck: supple Respiratory: clear to auscultation Cardiovascular: regular rate and rhythm Musculoskeletal: nl extremities to inspection Medications Medication Current Medications Ferrous Sulfate (Ferrous Sulfate (Ec)) 325 mg TID PO Last administered on 01/30/19at 13:56; Admin Dose 325 MG; Start 01/28/19 at 21:00 Zolpidem Tartrate (Ambien) 5 mg HS PRN PO INSOMNIA; Start 01/28/19 at 20:00 Acetaminophen (Tylenol Tab) 650 mg Q6H PRN PO MILD PAIN(1-3)OR ELEVATED TEMP; Start 01/28/19 at 20:00 Bisacodyl (Dulcolax) 5 mg DAILY PRN PO CONSTIPATION; Start 01/28/19 at 20:00 Diclofenac Sodium (Voltaren 1% Gel) 4 gm QID TP Last administered on 01/30/19at 13:56; Admin Dose 4 GM; Start 01/28/19 at 21:00 Docusate Sodium (Colace) 100 mg Q12 PRN PO CONSTIPATION; Start 01/28/19 at 20:00 Enoxaparin Sodium (Lovenox) 30 mg DAILY SC Last administered on 01/30/19at 09:24; Admin Dose 30 MG; Start 01/29/19 at 09:00 Magnesium Hydroxide (Milk Of Mag) 30 ml DAILY PRN PO CONSTIPATION; Start 01/28/19 at 20:00 Methylnaltrexone [place] (Relistor) 12 mg Q48H SC ; Start 01/30/19 at 18:00 Morphine Sulfate (morphine) 2 mg Q4H PRN IV MODERATE PAIN LEVEL 4-6; Start 01/28/19 at 20:00 Morphine Sulfate (morphine) 3 mg Q3H PRN IV SEVERE PAIN LEVEL 7-10; Start 01/28/19 at 20:00 Oxybutynin Chloride (Ditropan Xl) 10 mg DAILY PO Last administered on 01/30/19at 09:23; Admin Dose 10 MG; Start 01/29/19 at 09:00 Sodium Biphosphate/ Sodium Phosphate (Fleet Enema) 133 ml DAILY PRN [place] CONSTIPATION; Start 01/28/19 at 20:00 Miscellaneous Information (Pending [facility] Order For Wound Care) 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 PRN XX WOUND CARE; Start 01/28/19 at 22:30 Nitrofurantoin Macrocrystals (Macrobid) 100 mg BID PO Last administered on 01/30/19 09:23; Admin Dose 100 MG; Start 01/29/19 at 21:00 Saccharomyces Boulardii (Florastor) 500 mg BID PO Last administered on 01/30/19at 09:21; Admin Dose 500 MG; Start 01/29/19 at 21:00 Docusate Sodium (Colace) 100 mg BID PO Last administered on 01/30/19 09:22; Admin Dose 100 MG; Start 01/30/19 at 09:00 Senna (Senokot) 1 tab HS PO ; Start 01/30/19 at 21:00 Magnesium Hydroxide (Milk Of Mag) 30 ml BID PRN PO CONSTIPATION; Start 01/29/19 at 23:00 Lactulose (Enulose) 20 gm DAILY PRN PO CONSTIPATION; Start 01/29/19 at 23:00 Bisacodyl (Dulcolax Supp) 10 mg DAILY PRN [place] CONSTIPATION; Start 01/29/19 at 23:00 Ondansetron HCl (Zofran Odt) 4 mg Q6H PRN ODT nausea; Start 01/30/19 at 16:00 Oxycodone/ Acetaminophen (Percocet (5/ 325)) 1 tab Q4H PRN PO MODERATE PAIN LEVEL 4-6; Start 01/30/19 at 16:00 Oxycodone/ Acetaminophen (Percocet (5/ 325)) 2 tab Q4H PRN PO PAIN LEVEL 7-10; Start 01/30/19 at 16:00 YULIA KAUFMAN MD Jan 30, 2019 16:22
[2019-01-30] MEDS: METHYLNALTREXONE 12 MG/0.6 ML VIAL SC SCH (18:20)
[2019-01-30 20:17] VITALS: BP 139/62; PULSE 84; RESP 19
[2019-01-30] MEDS: SENNA TAB PO SCH (20:18)
[2019-01-31 07:00] VITALS: BP 153/70; PULSE 74; RESP 18
[2019-01-31] MEDS: NITROFURANTOIN (SR) 100 MG CAP PO SCH ×2 (07:55→20:23)
[2019-01-31] MEDS: OXYBUTYNIN (XL) 5 MG TAB PO SCH (07:56)
[2019-01-31] MEDS: FERROUS SULFATE (EC) 325 MG TAB PO SCH ×3 (07:56→20:23)
[2019-01-31] MEDS: DICLOFENAC SODIUM 1% GEL 100 GM TUBE TP SCH ×4 (07:57→20:25)
[2019-01-31] MEDS: DOCUSATE SODIUM 100 MG CAP PO SCH ×2 (07:57→20:23)
[2019-01-31] MEDS: OXYCODONE/ACETAMINOPHEN (5/325) TAB PO PRN (07:57)
[2019-01-31] MEDS: ENOXAPARIN 30 MG/0.3 ML SYG SC SCH (08:01)
[2019-01-31] MEDS: ONDANSETRON (ODT) 4 MG TAB ODT PRN (08:01)
[2019-01-31] MEDS: SACCHAROMYCES BOULARDII 250 MG CAP PO SCH ×2 (09:00→20:24)
--- NOTE | 2019-01-31 09:28 | PN ---
Date/Time of Note Date/Time of Note DATE: 01/31/19 TIME: 09:27 Subjective No new complaints Objective Vital Signs Date Temp Pulse Resp B/P (MAP) Pulse Ox O2 O2 Flow FiO2 Time Delivery Rate 01/31/19 98.4 74 18 153/70 95 Room Air 07:00 (97) Intake and Output 01/30/19 01/30/19 01/31/19 1515:00 23:00 07:00 IntakeIntake Total 240 ml OutputOutput Total 520 ml BalanceBalance 240 ml -520 ml Exam pulm-cta max transfer max ambulation a few steps Results/Medications Result Diagram: 01/29/19 0647 01/29/19 0647 Medications Current Medications Ferrous Sulfate (Ferrous Sulfate (Ec)) 325 mg TID PO Last administered on 01/31/19at 07:56; Admin Dose 325 MG; Start 01/28/19 at 21:00 Zolpidem Tartrate (Ambien) 5 mg HS PRN PO INSOMNIA; Start 01/28/19 at 20:00 Acetaminophen (Tylenol Tab) 650 mg Q6H PRN PO MILD PAIN(1-3)OR ELEVATED TEMP; Start 01/28/19 at 20:00 Bisacodyl (Dulcolax) 5 mg DAILY PRN PO CONSTIPATION; Start 01/28/19 at 20:00 Diclofenac Sodium (Voltaren 1% Gel) 4 gm QID TP Last administered on 01/31/19at 07:57; Admin Dose 4 GM; Start 01/28/19 at 21:00 Docusate Sodium (Colace) 100 mg Q12 PRN PO CONSTIPATION; Start 01/28/19 at 20:00 Enoxaparin Sodium (Lovenox) 30 mg DAILY SC Last administered on 01/31/19at 08:01; Admin Dose 30 MG; Start 01/29/19 at 09:00 Magnesium Hydroxide (Milk Of Mag) 30 ml DAILY PRN PO CONSTIPATION; Start 01/28/19 at 20:00 Methylnaltrexone [place] (Relistor) 12 mg Q48H SC Last administered on 01/30/19at 18:20; Admin Dose 12 MG; Start 01/30/19 at 18:00 Morphine Sulfate (morphine) 2 mg Q4H PRN IV MODERATE PAIN LEVEL 4-6; Start 01/28/19 at 20:00 Morphine Sulfate (morphine) 3 mg Q3H PRN IV SEVERE PAIN LEVEL 7-10; Start 01/28/19 at 20:00 Oxybutynin Chloride (Ditropan Xl) 10 mg DAILY PO Last administered on 01/31/19at 07:56; Admin Dose 10 MG; Start 01/29/19 at 09:00 Sodium Biphosphate/ Sodium Phosphate (Fleet Enema) 133 ml DAILY PRN [place] CONSTIPATION; Start 01/28/19 at 20:00 Miscellaneous Information (Pending [facility] Order For Wound Care) 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 PRN XX WOUND CARE; Start 01/28/19 at 22:30 Nitrofurantoin Macrocrystals (Macrobid) 100 mg BID PO Last administered on 01/31/19at 07:55; Admin Dose 100 MG; Start 01/29/19 at 21:00 Saccharomyces Boulardii (Florastor) 500 mg BID PO Last administered on 01/30/19at 20:17; Admin Dose 500 MG; Start 01/29/19 at 21:00 Docusate Sodium (Colace) 100 mg BID PO Last administered on 01/31/19at 07:57; Admin Dose 100 MG; Start 01/30/19 at 09:00 Senna (Senokot) 1 tab HS PO ; Start 01/30/19 at 21:00 Magnesium Hydroxide (Milk Of Mag) 30 ml BID PRN PO CONSTIPATION; Start 01/29/19 at 23:00 Lactulose (Enulose) 20 gm DAILY PRN PO CONSTIPATION; Start 01/29/19 at 23:00 Bisacodyl (Dulcolax Supp) 10 mg DAILY PRN [place] CONSTIPATION; Start 01/29/19 at 23:00 Ondansetron HCl (Zofran Odt) 4 mg Q6H PRN ODT nausea Last administered on 01/31/19at 08:01; Admin Dose 4 MG; Start 01/30/19 at 16:00 Oxycodone/ Acetaminophen (Percocet (5/ 325)) 1 tab Q4H PRN PO MODERATE PAIN LEVEL 4-6 Last administered on 01/31/19at 07:57; Admin Dose 1 TAB; Start 01/30/19 at 16:00 Oxycodone/ Acetaminophen (Percocet (5/ 325)) 2 tab Q4H PRN PO PAIN LEVEL 7-10; Start 01/30/19 at 16:00 Assessment/Plan Additional Assessment/Plan Rehab- Right intertrochanteric hip fracture status post ORIF. Continue current rehab program Acute pain syndrome- continue current meds Anemia. Osteoarthritis. Status post Clostridium difficile. Urinary urge incontinence. DAE ADAM MD Jan 31, 2019 09:28
[2019-01-31 14:00] VITALS: BP 128/62; PULSE 85; RESP 18
--- NOTE | 2019-01-31 16:19 | PN ---
Date/Time of Note Date/Time of Note DATE: 01/31/19 TIME: 16:15 Assessment/Plan VTE Prophylaxis Risk score (from Ns)>0 risk: 11 SCD applied (from [facility] [place] Yes SCD contraindicated: other Pharmacological prophylaxis: other Pharm contraindication: other Lines[facility] Urinary Cath still in place: No Assessment/Plan Hospital Course Clinically stable. Continue Physical Therapy per ARU Problems: (1) Urinary tract infection Status: Acute (2) Nausea (3) Anemia Status: Acute (4) Hip fracture Status: Acute (5) Urge incontinence Status: Chronic Result Diagram: 01/29/19 0647 01/29/19 0647 Subjective 24 Hr Interval Summary Free Text/Dictation Still with nausea but slight improvement with change to ODT administration Exam/Review of Systems Exam Vitals Vital Signs Date Temp Pulse Resp B/P (MAP) Pulse Ox O2 O2 Flow FiO2 Time Delivery Rate 01/31/19 98.0 85 18 128/62 96 Room Air 14:00 (84) Intake and Output 01/30/19 01/30/19 01/31/19 1515:00 23:00 07:00 IntakeIntake Total 240 ml OutputOutput Total 520 ml BalanceBalance 240 ml -520 ml Constitutional: alert, oriented Neck: supple Respiratory: normal air movement Cardiovascular: regular rate and rhythm Gastrointestinal: soft Musculoskeletal: nl extremities to inspection Medications Medication Current Medications Ferrous Sulfate (Ferrous Sulfate (Ec)) 325 mg TID PO Last administered on 01/31/19at 07:56; Admin Dose 325 MG; Start 01/28/19 at 21:00 Zolpidem Tartrate (Ambien) 5 mg HS PRN PO INSOMNIA; Start 01/28/19 at 20:00 Acetaminophen (Tylenol Tab) 650 mg Q6H PRN PO MILD PAIN(1-3)OR ELEVATED TEMP; Start 01/28/19 at 20:00 Bisacodyl (Dulcolax) 5 mg DAILY PRN PO CONSTIPATION; Start 01/28/19 at 20:00 Diclofenac Sodium (Voltaren 1% Gel) 4 gm QID TP Last administered on 01/31/19at 07:57; Admin Dose 4 GM; Start 01/28/19 at 21:00 Docusate Sodium (Colace) 100 mg Q12 PRN PO CONSTIPATION; Start 01/28/19 at 20:00 Enoxaparin Sodium (Lovenox) 30 mg DAILY SC Last administered on 01/31/19at 08:01; Admin Dose 30 MG; Start 01/29/19 at 09:00 Magnesium Hydroxide (Milk Of Mag) 30 ml DAILY PRN PO CONSTIPATION; Start 01/28/19 at 20:00 Methylnaltrexone [place] (Relistor) 12 mg Q48H SC Last administered on 01/30/19at 18:20; Admin Dose 12 MG; Start 01/30/19 at 18:00 Morphine Sulfate (morphine) 2 mg Q4H PRN IV MODERATE PAIN LEVEL 4-6; Start 01/28/19 at 20:00 Morphine Sulfate (morphine) 3 mg Q3H PRN IV SEVERE PAIN LEVEL 7-10; Start 01/28/19 at 20:00 Oxybutynin Chloride (Ditropan Xl) 10 mg DAILY PO Last administered on 01/31/19at 07:56; Admin Dose 10 MG; Start 01/29/19 at 09:00 Sodium Biphosphate/ Sodium Phosphate (Fleet Enema) 133 ml DAILY PRN [place] CONSTIPATION; Start 01/28/19 at 20:00 [facility] 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 .. PRN PRN XX WOUND CARE; Start 01/28/19 at 22:30 Nitrofurantoin Macrocrystals (Macrobid) 100 mg BID PO Last administered on 01/31/19at 07:55; Admin Dose 100 MG; Start 01/29/19 at 21:00 Saccharomyces Boulardii (Florastor) 500 mg BID PO Last administered on 01/30/19at 20:17; Admin Dose 500 MG; Start 01/29/19 at 21:00 Docusate Sodium (Colace) 100 mg BID PO Last administered on 01/31/19at 07:57; Admin Dose 100 MG; Start 01/30/19 at 09:00 Senna (Senokot) 1 tab HS PO ; Start 01/30/19 at 21:00 Magnesium Hydroxide (Milk Of Mag) 30 ml BID PRN PO CONSTIPATION; Start 01/29/19 at 23:00 Lactulose (Enulose) 20 gm DAILY PRN PO CONSTIPATION; Start 01/29/19 at 23:00 Bisacodyl (Dulcolax Supp) 10 mg DAILY PRN [place] CONSTIPATION; Start 01/29/19 at 23:00 Ondansetron HCl (Zofran Odt) 4 mg Q6H PRN ODT nausea Last administered on 01/31/19at 08:01; Admin Dose 4 MG; Start 01/30/19 at 16:00 Oxycodone/ Acetaminophen (Percocet (5/ 325)) 1 tab Q4H PRN PO MODERATE PAIN LEVEL 4-6 Last administered on 01/31/19at 07:57; Admin Dose 1 TAB; Start 01/30/19 at 16:00 Oxycodone/ Acetaminophen (Percocet (5/ 325)) 2 tab Q4H PRN PO PAIN LEVEL 7-10; Start 01/30/19 at 16:00 YULIA KAUFMAN MD Jan 31, 2019 16:19
[2019-01-31 20:10] VITALS: BP 125/57; PULSE 93; RESP 18
[2019-01-31] MEDS: SENNA TAB PO SCH (20:23)
[2019-02-01] MEDS: ONDANSETRON (ODT) 4 MG TAB ODT PRN (00:03)
[2019-02-01 02:00] VITALS: BP 139/56; PULSE 75; RESP 18
[2019-02-01 07:38] VITALS: BP 147/63; PULSE 73; RESP 19
[2019-02-01] MEDS: OXYCODONE/ACETAMINOPHEN (5/325) TAB PO PRN ×2 (07:38→12:00)
[2019-02-01] MEDS: OXYBUTYNIN (XL) 5 MG TAB PO SCH (08:40)
[2019-02-01] MEDS: DOCUSATE SODIUM 100 MG CAP PO SCH ×2 (08:40→20:08)
[2019-02-01] MEDS: DICLOFENAC SODIUM 1% GEL 100 GM TUBE TP SCH ×4 (08:40→20:08)
[2019-02-01] MEDS: FERROUS SULFATE (EC) 325 MG TAB PO SCH ×3 (08:40→20:08)
[2019-02-01] MEDS: NITROFURANTOIN (SR) 100 MG CAP PO SCH ×2 (08:40→20:08)
[2019-02-01] MEDS: SACCHAROMYCES BOULARDII 250 MG CAP PO SCH ×2 (08:40→20:08)
[2019-02-01] MEDS: ENOXAPARIN 30 MG/0.3 ML SYG SC SCH (08:41)
--- NOTE | 2019-02-01 11:08 | PN ---
Date/Time of Note Date/Time of Note DATE: 02/01/19 TIME: 11:07 Subjective Feeling better Objective Vital Signs Date Temp Pulse Resp B/P (MAP) Pulse Ox O2 O2 Flow FiO2 Time Delivery Rate 02/01/19 97.9 75 18 139/56 94 Room Air 02:00 (83) Intake and Output 01/31/19 01/31/19 02/01/19 1414:59 22:59 06:59 IntakeIntake Total 1440 ml 120 ml OutputOutput Total 100 ml 800 ml BalanceBalance -100 ml 640 ml 120 ml Exam pulm-cta abd-soft max transfer Results/Medications Result Diagram: 01/29/19 0647 01/29/19 0647 Medications Current Medications Ferrous Sulfate (Ferrous Sulfate (Ec)) 325 mg TID PO Last administered on 02/01/19at 08:40; Admin Dose 325 MG; Start 01/28/19 at 21:00 Zolpidem Tartrate (Ambien) 5 mg HS PRN PO INSOMNIA; Start 01/28/19 at 20:00 Acetaminophen (Tylenol Tab) 650 mg Q6H PRN PO MILD PAIN(1-3)OR ELEVATED TEMP; Start 01/28/19 at 20:00 Bisacodyl (Dulcolax) 5 mg DAILY PRN PO CONSTIPATION; Start 01/28/19 at 20:00 Diclofenac Sodium (Voltaren 1% Gel) 4 gm QID TP Last administered on 02/01/19at 08:40; Admin Dose 4 GM; Start 01/28/19 at 21:00 Docusate Sodium (Colace) 100 mg Q12 PRN PO CONSTIPATION; Start 01/28/19 at 20:00 Enoxaparin Sodium (Lovenox) 30 mg DAILY SC Last administered on 02/01/19at 08:41; Admin Dose 30 MG; Start 01/29/19 at 09:00 Magnesium Hydroxide (Milk Of Mag) 30 ml DAILY PRN PO CONSTIPATION; Start 01/28/19 at 20:00 Methylnaltrexone [place] (Relistor) 12 mg Q48H SC Last administered on 01/30/19at 18:20; Admin Dose 12 MG; Start 01/30/19 at 18:00 Morphine Sulfate (morphine) 2 mg Q4H PRN IV MODERATE PAIN LEVEL 4-6; Start 01/28/19 at 20:00 Morphine Sulfate (morphine) 3 mg Q3H PRN IV SEVERE PAIN LEVEL 7-10; Start 01/28/19 at 20:00 Oxybutynin Chloride (Ditropan Xl) 10 mg DAILY PO Last administered on 02/01/19 08:40; Admin Dose 10 MG; Start 01/29/19 at 09:00 Sodium Biphosphate/ Sodium Phosphate (Fleet Enema) 133 ml DAILY PRN [place] CONSTIPATION; Start 01/28/19 at 20:00 [facility]isc[facility] 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 PRN XX WOUND CARE; Start 01/28/19 at 22:30 Nitrofurantoin Macrocrystals (Macrobid) 100 mg BID PO Last administered on 02/01/19 08:40; Admin Dose 100 MG; Start 01/29/19 at 21:00 Saccharomyces Boulardii (Florastor) 500 mg BID PO Last administered on 02/01/19 08:40; Admin Dose 500 MG; Start 01/29/19 at 21:00 Docusate Sodium (Colace) 100 mg BID PO Last administered on 02/01/19 08:40; Admin Dose 100 MG; Start 01/30/19 at 09:00 Senna (Senokot) 1 tab HS PO Last administered on 01/31/19 20:23; Admin Dose 1 TAB; Start 01/30/19 at 21:00 Magnesium Hydroxide (Milk Of Mag) 30 ml BID PRN PO CONSTIPATION; Start 01/29/19 at 23:00 Lactulose (Enulose) 20 gm DAILY PRN PO CONSTIPATION; Start 01/29/19 at 23:00 Bisacodyl (Dulcolax Supp) 10 mg DAILY PRN [place] CONSTIPATION; Start 01/29/19 at 23:00 Ondansetron HCl (Zofran Odt) 4 mg Q6H PRN ODT nausea Last administered on 02/01/19 00:03; Admin Dose 4 MG; Start 01/30/19 at 16:00 Oxycodone/ Acetaminophen (Percocet (5/ 325)) 1 tab Q4H PRN PO MODERATE PAIN LEVEL 4-6 Last administered on 01/31/19 07:57; Admin Dose 1 TAB; Start 01/30/19 at 16:00 Oxycodone/ Acetaminophen (Percocet (5/ 325)) 2 tab Q4H PRN PO PAIN LEVEL 7-10 Last administered on 02/01/19at 07:38; Admin Dose 2 TAB; Start 01/30/19 at 16:00 Assessment/Plan Additional Assessment/Plan Rehab- Right intertrochanteric hip fracture status post ORIF. Continue current rehab activities Acute pain syndrome- continue current meds Anemia. Osteoarthritis. Status post Clostridium difficile. Urinary urge incontinence. DAE ADAM MD Feb 01, 2019 11:08
[2019-02-01 14:00] VITALS: BP 129/66; PULSE 70; RESP 19
[2019-02-01] MEDS: METHYLNALTREXONE 12 MG/0.6 ML VIAL SC SCH (18:01)
[2019-02-01 20:00] VITALS: BP 118/55; PULSE 86; RESP 18
[2019-02-01] MEDS: SENNA TAB PO SCH (20:08)
--- NOTE | 2019-02-01 22:04 | PN ---
Date/Time of Note Date/Time of Note DATE: 02/01/19 TIME: 21:58 Assessment/Plan VTE Prophylaxis Risk score (from Ns)>0 risk: 10 SCD applied (from Ns): Yes Pharmacological prophylaxis: LMWH Lines/Catheters IV Catheter Type (from [facility]): Saline Lock Urinary Cath still in place: No Assessment/Plan Problems: (1) Urge incontinence Status: Chronic Comment: Cont. oxybutynin (2) Urinary tract infection Status: Acute Comment: (+) e.coli sensitive to macrobid. Will cont. x 7 days. (3) Age-related osteoporosis with current pathological fracture of right femur Status: Acute Comment: Pt. will need anabolic bone therapy after d/c. (4) Postoperative anemia due to acute blood loss Status: Acute Comment: Stable. Recheck tomorrow. (5) Conflicted attitude towards exercise Status: Acute Comment: Impediment to good care. Cont. encouragement through ARU. (6) Intertrochanteric fracture of right hip Status: Resolved Comment: Cont. daily rehab in ARU. Result Diagram: 01/29/19 0647 01/29/19 0647 Subjective 24 Hr Interval Summary Constitutional: no complaints, improved (pt. admits that she is feeling better w/ improved appetite but also that she knows she is doing poorly w/ PT; feels problem is in her mind but cannot muster ability to try to ambulate or even move in bed or transfer; worried she will be sent to SNF) Respiratory: no complaints Cardiovascular: no complaints Gastrointestinal: no complaints Genitourinary: no complaints Musculoskeletal: bone/joint pain (only hurts when she tries to move or ambulate) Neurologic: no complaints Exam/Review of Systems Exam Vitals VS - Last 72 Hours, by Label Date Temp Pulse Resp B/P (MAP) Pulse Ox O2 O2 Flow FiO2 Time Delivery Rate 02/01/19 97.4 86 18 118/55 96 Room Air 20:00 (76) 02/01/19 98.0 70 19 129/66 98 Room Air 14:00 (87) 02/01/19 98.0 73 19 147/63 96 Room Air 07:38 (91) 02/01/19 97.9 75 18 139/56 94 Room Air 02:00 (83) 01/31/19 98.7 93 18 125/57 94 Room Air 20:10 (79) 01/31/19 98.0 85 18 128/62 96 Room Air 14:00 (84) 01/31/19 98.4 74 18 153/70 95 Room Air 07:00 (97) 01/30/19 98.7 84 19 139/62 93 Room Air 20:17 (87) 01/30/19 98.2 81 18 157/63 95 Room Air 14:57 (94) 01/30/19 80 18 136/69 98 09:32 (91) 01/30/19 98.5 82 18 155/74 96 08:00 (101) 01/30/19 98.4 70 20 145/69 94 Room Air 02:10 (94) Vital Signs Date Temp Pulse Resp B/P (MAP) Pulse Ox O2 O2 Flow FiO2 Time Delivery Rate 02/01/19 97.4 86 18 118/55 96 Room Air 20:00 (76) Intake and Output 01/31/19 01/31/19 02/01/19 1515:00 23:00 07:00 IntakeIntake Total 1440 ml 120 ml OutputOutput Total 100 ml 800 ml BalanceBalance -100 ml 640 ml 120 ml Constitutional: alert, oriented, well developed Respiratory: clear to auscultation, normal air movement Cardiovascular: regular rate and rhythm, nl pulses; No edema, No murmurs/extra sounds, No rub Gastrointestinal: soft, nl liver, spleen, non-tender, bowel sounds; No mass, No rebound or guarding Musculoskeletal: nl extremities to inspection Extremities: edema (1+ RLE); No cyanosis, No clubbing 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, nl mental status, nl speech, nl strength Medications Medication Current Medications Ferrous Sulfate (Ferrous Sulfate (Ec)) 325 mg TID PO Last administered on 02/01/19at 20:08; Admin Dose 325 MG; Start 01/28/19 at 21:00 Zolpidem Tartrate (Ambien) 5 mg HS PRN PO INSOMNIA; Start 01/28/19 at 20:00 Acetaminophen (Tylenol Tab) 650 mg Q6H PRN PO MILD PAIN(1-3)OR ELEVATED TEMP; Start 01/28/19 at 20:00 Bisacodyl (Dulcolax) 5 mg DAILY PRN PO CONSTIPATION; Start 01/28/19 at 20:00 Diclofenac Sodium (Voltaren 1% Gel) 4 gm QID TP Last administered on 02/01/19 20:08; Admin Dose 4 GM; Start 01/28/19 at 21:00 Docusate Sodium (Colace) 100 mg Q12 PRN PO CONSTIPATION; Start 01/28/19 at 20:00 Enoxaparin Sodium (Lovenox) 30 mg DAILY SC Last administered on 02/01/19 08:41; Admin Dose 30 MG; Start 01/29/19 at 09:00 Magnesium Hydroxide (Milk Of Mag) 30 ml DAILY PRN PO CONSTIPATION; Start 01/28/19 at 20:00 Methylnaltrexone [place] (Relistor) 12 mg Q48H SC Last administered on 02/01/19 18:01; Admin Dose 12 MG; Start 01/30/19 at 18:00 Morphine Sulfate (morphine) 2 mg Q4H PRN IV MODERATE PAIN LEVEL 4-6; Start 01/28/19 at 20:00 Morphine Sulfate (morphine) 3 mg Q3H PRN IV SEVERE PAIN LEVEL 7-10; Start 01/28/19 at 20:00 Oxybutynin Chloride (Ditropan Xl) 10 mg DAILY PO Last administered on 02/01/19 08:40; Admin Dose 10 MG; Start 01/29/19 at 09:00 Sodium Biphosphate/ Sodium Phosphate (Fleet Enema) 133 ml DAILY PRN [place] CONSTIPATION; Start 01/28/19 at 20:00 Miscellaneous Information (Pending Santyl Order For Wound Care) 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 PRN XX WOUND CARE; Start 01/28/19 at 22:30 Nitrofurantoin Macrocrystals (Macrobid) 100 mg BID PO Last administered on 02/01/19 20:08; Admin Dose 100 MG; Start 01/29/19 at 21:00 Saccharomyces Boulardii (Florastor) 500 mg BID PO Last administered on 02/01/19 20:08; Admin Dose 500 MG; Start 01/29/19 at 21:00 Docusate Sodium (Colace) 100 mg BID PO Last administered on 02/01/19 20:08; Admin Dose 100 MG; Start 01/30/19 at 09:00 Senna (Senokot) 1 tab HS PO Last administered on 7/15/19at 20:08; Admin Dose 1 TAB; Start 01/30/19 at 21:00 Magnesium Hydroxide (Milk Of Mag) 30 ml BID PRN PO CONSTIPATION; Start 01/29/19 at 23:00 Lactulose (Enulose) 20 gm DAILY PRN PO CONSTIPATION; Start 01/29/19 at 23:00 Bisacodyl (Dulcolax Supp) 10 mg DAILY PRN [place] CONSTIPATION; Start 01/29/19 at 23:00 Ondansetron HCl (Zofran Odt) 4 mg Q6H PRN ODT nausea Last administered on 02/01/19at 00:03; Admin Dose 4 MG; Start 01/30/19 at 16:00 Oxycodone/ Acetaminophen (Percocet (5/ 325)) 1 tab Q4H PRN PO MODERATE PAIN LEVEL 4-6 Last administered on 01/31/19at 07:57; Admin Dose 1 TAB; Start 01/30/19 at 16:00 Oxycodone/ Acetaminophen (Percocet (5/ 325)) 2 tab Q4H PRN PO PAIN LEVEL 7-10 Last administered on 02/01/19at 12:00; Admin Dose 2 TAB; Start 01/30/19 at 16:00 ELEAZAR HUTCHISON MD Feb 01, 2019 22:04
[2019-02-02 02:00] VITALS: BP 142/62; PULSE 89; RESP 18
[2019-02-02 07:00] VITALS: BP 118/59; PULSE 71; RESP 18
[2019-02-02] MEDS: OXYCODONE/ACETAMINOPHEN (5/325) TAB PO PRN (07:14)
[2019-02-02] MEDS: SACCHAROMYCES BOULARDII 250 MG CAP PO SCH ×2 (09:00→20:09)
[2019-02-02] MEDS: DOCUSATE SODIUM 100 MG CAP PO SCH ×2 (09:00→20:10)
[2019-02-02] MEDS: FERROUS SULFATE (EC) 325 MG TAB PO SCH ×3 (09:00→20:09)
[2019-02-02] MEDS: NITROFURANTOIN (SR) 100 MG CAP PO SCH ×2 (09:00→20:10)
[2019-02-02] MEDS: OXYBUTYNIN (XL) 5 MG TAB PO SCH ×2 (09:01→20:10)
[2019-02-02] MEDS: DICLOFENAC SODIUM 1% GEL 100 GM TUBE TP SCH ×4 (09:01→20:10)
[2019-02-02] MEDS: ENOXAPARIN 30 MG/0.3 ML SYG SC SCH (09:13)
--- NOTE | 2019-02-02 11:54 | PN ---
Date/Time of Note Date/Time of Note DATE: 02/02/19 TIME: 11:53 Subjective Patient feels quite well today Objective Vital Signs Date Temp Pulse Resp B/P (MAP) Pulse Ox O2 O2 Flow FiO2 Time Delivery Rate 02/02/19 98.0 71 18 118/59 94 Room Air 07:00 (78) Intake and Output 02/01/19 02/01/19 02/02/19 1515:00 23:00 07:00 IntakeIntake Total 200 ml 300 ml BalanceBalance 200 ml 300 ml Exam pulm-cta mod assist transfer max assist ambulation 7 feet Results/Medications Result Diagram: 02/02/19 0624 02/02/19 0624 Results 24 hrs Laboratory Tests Test 02/02/19 06:24 White Blood Count 8.2 Red Blood Count 2.91 L Hemoglobin 8.8 L Hematocrit 28.8 L Mean Corpuscular Volume 99.0 Mean Corpuscular Hemoglobin 30.2 Mean Corpuscular Hemoglobin Concent 30.6 L Red Cell Distribution Width 16.7 #H Platelet Count 213 Mean Platelet Volume 11.3 H Immature Granulocytes % 1.300 H Neutrophils % 60.1 Lymphocytes % 24.6 Monocytes % 10.3 Eosinophils % 3.2 Basophils % 0.5 Nucleated Red Blood Cells % 0.7 H Immature Granulocytes # 0.110 H Neutrophils # 4.9 Lymphocytes # 2.0 Monocytes # 0.8 Eosinophils # 0.3 Basophils # 0.0 Nucleated Red Blood Cells # 0.1 H Sodium Level 136 Potassium Level 4.5 Chloride Level 104 Carbon Dioxide Level 29 Anion Gap 3 L Blood Urea Nitrogen 16 Creatinine 0.73 Est Glomerular Filtrat Rate mL/min Glucose Level 102 Calcium Level 8.7 Medications Current Medications Ferrous Sulfate (Ferrous Sulfate (Ec)) 325 mg TID PO Last administered on 02/02/19at 09:00; Admin Dose 325 MG; Start 01/28/19 at 21:00 Zolpidem Tartrate (Ambien) 5 mg HS PRN PO INSOMNIA; Start 01/28/19 at 20:00 Acetaminophen (Tylenol Tab) 650 mg Q6H PRN PO MILD PAIN(1-3)OR ELEVATED TEMP; Start 01/28/19 at 20:00 Bisacodyl (Dulcolax) 5 mg DAILY PRN PO CONSTIPATION; Start 01/28/19 at 20:00 Diclofenac Sodium (Voltaren 1% Gel) 4 gm QID TP Last administered on 02/02/19 09:01; Admin Dose 4 GM; Start 01/28/19 at 21:00 Docusate Sodium (Colace) 100 mg Q12 PRN PO CONSTIPATION; Start 01/28/19 at 20:00 Enoxaparin Sodium (Lovenox) 30 mg DAILY SC Last administered on 02/02/19 09:13; Admin Dose 30 MG; Start 01/29/19 at 09:00 Magnesium Hydroxide (Milk Of Mag) 30 ml DAILY PRN PO CONSTIPATION; Start 01/28/19 at 20:00 Methylnaltrexone [place] (Relistor) 12 mg Q48H SC Last administered on 02/01/19 18:01; Admin Dose 12 MG; Start 01/30/19 at 18:00 Morphine Sulfate (morphine) 2 mg Q4H PRN IV MODERATE PAIN LEVEL 4-6; Start 01/28/19 at 20:00 Morphine Sulfate (morphine) 3 mg Q3H PRN IV SEVERE PAIN LEVEL 7-10; Start 01/28/19 at 20:00 Oxybutynin Chloride (Ditropan Xl) 10 mg DAILY PO Last administered on 02/02/19 09:01; Admin Dose 10 MG; Start 01/29/19 at 09:00 Sodium Biphosphate/ Sodium Phosphate (Fleet Enema) 133 ml DAILY PRN [place] CONSTIPATION; Start 01/28/19 at 20:00 Miscellaneous Information (Pending 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 PRN XX WOUND CARE; Start 01/28/19 at 22:30 Nitrofurantoin Macrocrystals (Macrobid) 100 mg BID PO Last administered on 02/02/19 09:00; Admin Dose 100 MG; Start 01/29/19 at 21:00 Saccharomyces Boulardii (Florastor) 500 mg BID PO Last administered on 02/02/19 09:00; Admin Dose 500 MG; Start 01/29/19 at 21:00 Docusate Sodium (Colace) 100 mg BID PO Last administered on 02/02/19 09:00; Admin Dose 100 MG; Start 01/30/19 at 09:00 Senna (Senokot) 1 tab HS PO Last administered on 02/01/19 20:08; Admin Dose 1 TAB; Start 01/30/19 at 21:00 Magnesium Hydroxide (Milk Of Mag) 30 ml BID PRN PO CONSTIPATION; Start 01/29/19 at 23:00 Lactulose (Enulose) 20 gm DAILY PRN PO CONSTIPATION; Start 01/29/19 at 23:00 Bisacodyl (Dulcolax Supp) 10 mg DAILY PRN [place] CONSTIPATION; Start 01/29/19 at 23:00 Ondansetron HCl (Zofran Odt) 4 mg Q6H PRN ODT nausea Last administered on 02/01/19at 00:03; Admin Dose 4 MG; Start 01/30/19 at 16:00 Oxycodone/ Acetaminophen (Percocet (5/ 325)) 1 tab Q4H PRN PO MODERATE PAIN LEVEL 4-6 Last administered on 02/02/19at 07:14; Admin Dose 1 TAB; Start 01/30/19 at 16:00 Oxycodone/ Acetaminophen (Percocet (5/ 325)) 2 tab Q4H PRN PO PAIN LEVEL 7-10 Last administered on 02/01/19at 12:00; Admin Dose 2 TAB; Start 01/30/19 at 16:00 Assessment/Plan Additional Assessment/Plan Rehab- Right intertrochanteric hip fracture status post ORIF. Continue interdisciplinary rehab treatment plan Acute pain syndrome- continue current meds Anemia. Osteoarthritis. Status post Clostridium difficile. Urinary urge incontinence. DAE ADAM MD Feb 02, 2019 11:54
[2019-02-02 14:00] VITALS: BP 122/55; PULSE 78; RESP 18
--- NOTE | 2019-02-02 18:19 | PN ---
Date/Time of Note Date/Time of Note DATE: 02/02/19 TIME: 18:17 Assessment/Plan VTE Prophylaxis Risk score (from Ns)>0 risk: 12 SCD applied (from Ns): Yes Pharmacological prophylaxis: LMWH Lines/Catheters IV Catheter Type (from [place]): Saline Lock Urinary Cath still in place: No Assessment/Plan Problems: (1) Drug-induced constipation Status: Acute Comment: Increase methylnaltrexone to daily and pt. has prn to ask for. (2) Urge incontinence Status: Chronic Comment: Had episode today. Will increase oxybutynin to 10 mg bid (3) Urinary tract infection Status: Acute Comment: Cont. macrobid (4) Postoperative anemia due to acute blood loss Status: Acute Comment: Increasing. Cont. FeSO4 (5) Conflicted attitude towards exercise Status: Acute Comment: Now has started working w/ PT. Cont. ARU (6) Intertrochanteric fracture of right hip Status: Resolved Comment: Cont. work w/ PT in ARU. Result Diagram: 02/02/1924 02/02/19 0624 Results 24hrs Laboratory Tests Test 02/02/19 06:24 White Blood Count 8.2 Red Blood Count 2.91 L Hemoglobin 8.8 L Hematocrit 28.8 L Mean Corpuscular Volume 99.0 Mean Corpuscular Hemoglobin 30.2 Mean Corpuscular Hemoglobin Concent 30.6 L Red Cell Distribution Width 16.7 #H Platelet Count 213 Mean Platelet Volume 11.3 H Immature Granulocytes % 1.300 H Neutrophils % 60.1 Lymphocytes % 24.6 Monocytes % 10.3 Eosinophils % 3.2 Basophils % 0.5 Nucleated Red Blood Cells % 0.7 H Immature Granulocytes # 0.110 H Neutrophils # 4.9 Lymphocytes # 2.0 Monocytes # 0.8 Eosinophils # 0.3 Basophils # 0.0 Nucleated Red Blood Cells # 0.1 H Sodium Level 136 Potassium Level 4.5 Chloride Level 104 Carbon Dioxide Level 29 Anion Gap 3 L Blood Urea Nitrogen 16 Creatinine 0.73 Est Glomerular Filtrat Rate mL/min Glucose Level 102 Calcium Level 8.7 Subjective 24 Hr Interval Summary Constitutional: no complaints, improved (ambulated 50 feet today) Respiratory: no complaints Cardiovascular: no complaints Gastrointestinal: constipation Genitourinary: other (incontinent x 1 today) Musculoskeletal: no complaints Neurologic: no complaints Exam/Review of Systems Exam Vitals VS - Last 72 Hours, by Label Date Temp Pulse Resp B/P (MAP) Pulse Ox O2 O2 Flow FiO2 Time Delivery Rate 02/02/19 97.2 78 18 122/55 95 Room Air 14:00 (77) 02/02/19 98.0 71 18 118/59 94 Room Air 07:00 (78) 02/02/19 98.0 89 18 142/62 95 Room Air 02:00 (88) 02/01/19 97.4 86 18 118/55 96 Room Air 20:00 (76) 02/01/19 98.0 70 19 129/66 98 Room Air 14:00 (87) 02/01/19 98.0 73 19 147/63 96 Room Air 07:38 (91) 02/01/19 97.9 75 18 139/56 94 Room Air 02:00 (83) 01/31/19 98.7 93 18 125/57 94 Room Air 20:10 (79) 01/31/19 98.0 85 18 128/62 96 Room Air 14:00 (84) 01/31/19 98.4 74 18 153/70 95 Room Air 07:00 (97) 01/30/19 98.7 84 19 139/62 93 Room Air 20:17 (87) Vital Signs Date Temp Pulse Resp B/P (MAP) Pulse Ox O2 O2 Flow FiO2 Time Delivery Rate 02/02/19 97.2 78 18 122/55 95 Room Air 14:00 (77) Intake and Output 02/01/19 02/01/19 02/02/19 1515:00 23:00 07:00 IntakeIntake Total 200 ml 300 ml BalanceBalance 200 ml 300 ml Constitutional: alert, oriented, well developed Psych: no complaints, nl mood/affect Respiratory: clear to auscultation, normal air movement Cardiovascular: regular rate and rhythm, nl pulses; No edema, No murmurs/extra sounds, No rub Gastrointestinal: soft, nl liver, spleen, non-tender, bowel sounds; No mass, No rebound or guarding Musculoskeletal: nl extremities to inspection Extremities: normal pulses; No cyanosis, No clubbing, No edema 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, nl mental status, nl speech, nl strength Results Results 24hrs Laboratory Tests Test 02/02/19 06:24 White Blood Count 8.2 Red Blood Count 2.91 L Hemoglobin 8.8 L Hematocrit 28.8 L Mean Corpuscular Volume 99.0 Mean Corpuscular Hemoglobin 30.2 Mean Corpuscular Hemoglobin Concent 30.6 L Red Cell Distribution Width 16.7 #H Platelet Count 213 Mean Platelet Volume 11.3 H Immature Granulocytes % 1.300 H Neutrophils % 60.1 Lymphocytes % 24.6 Monocytes % 10.3 Eosinophils % 3.2 Basophils % 0.5 Nucleated Red Blood Cells % 0.7 H Immature Granulocytes # 0.110 H Neutrophils # 4.9 Lymphocytes # 2.0 Monocytes # 0.8 Eosinophils # 0.3 Basophils # 0.0 Nucleated Red Blood Cells # 0.1 H Sodium Level 136 Potassium Level 4.5 Chloride Level 104 Carbon Dioxide Level 29 Anion Gap 3 L Blood Urea Nitrogen 16 Creatinine 0.73 Est Glomerular Filtrat Rate mL/min Glucose Level 102 Calcium Level 8.7 Medications Medication Current Medications Ferrous Sulfate (Ferrous Sulfate (Ec)) 325 mg TID PO Last administered on 02/02/19at 12:38; Admin Dose 325 MG; Start 01/28/19 at 21:00 Zolpidem Tartrate (Ambien) 5 mg HS PRN PO INSOMNIA; Start 01/28/19 at 20:00 Acetaminophen (Tylenol Tab) 650 mg Q6H PRN PO MILD PAIN(1-3)OR ELEVATED TEMP; Start 01/28/19 at 20:00 Bisacodyl (Dulcolax) 5 mg DAILY PRN PO CONSTIPATION; Start 01/28/19 at 20:00 Diclofenac Sodium (Voltaren 1% Gel) 4 gm QID TP Last administered on 02/02/19at 16:57; Admin Dose 4 GM; Start 01/28/19 at 21:00 Docusate Sodium (Colace) 100 mg Q12 PRN PO CONSTIPATION; Start 01/28/19 at 20:00 Enoxaparin Sodium (Lovenox) 30 mg DAILY SC Last administered on 02/02/19at 09:13; Admin Dose 30 MG; Start 01/29/19 at 09:00 Magnesium Hydroxide (Milk Of Mag) 30 ml DAILY PRN PO CONSTIPATION; Start 01/28/19 at 20:00 Methylnaltrexone [place] (Relistor) 12 mg Q48H SC Last administered on 02/01/19at 18:01; Admin Dose 12 MG; Start 01/30/19 at 18:00 Morphine Sulfate (morphine) 2 mg Q4H PRN IV MODERATE PAIN LEVEL 4-6; Start 01/28/19 at 20:00 Morphine Sulfate (morphine) 3 mg Q3H PRN IV SEVERE PAIN LEVEL 7-10; Start 01/28/19 at 20:00 Oxybutynin Chloride (Ditropan Xl) 10 mg DAILY PO Last administered on 02/02/19at 09:01; Admin Dose 10 MG; Start 01/29/19 at 09:00 Sodium Biphosphate/ Sodium Phosphate (Fleet Enema) 133 ml DAILY PRN [place] CONSTI PATION; Start 01/28/19 at 20:00 Miscellaneous Information [facility]) 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 PRN XX WOUND CARE; Start 01/28/19 at 22:30 Nitrofurantoin Macrocrystals (Macrobid) 100 mg BID PO Last administered on 02/02/19at 09:00; Admin Dose 100 MG; Start 01/29/19 at 21:00 Saccharomyces Boulardii (Florastor) 500 mg BID PO Last administered on 02/02/19at 09:00; Admin Dose 500 MG; Start 01/29/19 at 21:00 Docusate Sodium (Colace) 100 mg BID PO Last administered on 02/02/19at 09:00; Admin Dose 100 MG; Start 01/30/19 at 09:00 Senna (Senokot) 1 tab HS PO Last administered on 02/01/19at 20:08; Admin Dose 1 TAB; Start 01/30/19 at 21:00 Magnesium Hydroxide (Milk Of Mag) 30 ml BID PRN PO CONSTIPATION; Start 01/29/19 at 23:00 Lactulose (Enulose) 20 gm DAILY PRN PO CONSTIPATION; Start 01/29/19 at 23:00 Bisacodyl (Dulcolax Supp) 10 mg DAILY PRN [place] CONSTIPATION; Start 01/29/19 at 23:00 Ondansetron HCl (Zofran Odt) 4 mg Q6H PRN ODT nausea Last administered on 02/01/19at 00:03; Admin Dose 4 MG; Start 01/30/19 at 16:00 Oxycodone/ Acetaminophen (Percocet (5/ 325)) 1 tab Q4H PRN PO MODERATE PAIN LEVEL 4-6 Last administered on 02/02/19at 07:14; Admin Dose 1 TAB; Start 01/30/19 at 16:00 Oxycodone/ Acetaminophen (Percocet (5/ 325)) 2 tab Q4H PRN PO PAIN LEVEL 7-10 Last administered on 02/01/19at 12:00; Admin Dose 2 TAB; Start 01/30/19 at 16:00 ELEAZAR HUTCHISON MD Feb 02, 2019 18:19
[2019-02-02 20:00] VITALS: BP 120/56; PULSE 81; RESP 18
[2019-02-02] MEDS: SENNA TAB PO SCH (20:10)
[2019-02-03 02:00] VITALS: BP 123/54; PULSE 76; RESP 18
[2019-02-03] MEDS: OXYCODONE/ACETAMINOPHEN (5/325) TAB PO PRN (06:02)
[2019-02-03 07:30] VITALS: BP 137/64; PULSE 77; RESP 20
[2019-02-03] MEDS: OXYBUTYNIN (XL) 5 MG TAB PO SCH ×2 (09:37→21:02)
[2019-02-03] MEDS: NITROFURANTOIN (SR) 100 MG CAP PO SCH ×2 (09:38→21:02)
[2019-02-03] MEDS: DOCUSATE SODIUM 100 MG CAP PO SCH ×2 (09:38→21:02)
[2019-02-03] MEDS: SACCHAROMYCES BOULARDII 250 MG CAP PO SCH ×2 (09:48→21:02)
[2019-02-03] MEDS: FERROUS SULFATE (EC) 325 MG TAB PO SCH ×3 (09:53→21:02)
[2019-02-03] MEDS: DICLOFENAC SODIUM 1% GEL 100 GM TUBE TP SCH ×4 (09:55→21:00)
[2019-02-03] MEDS: ENOXAPARIN 30 MG/0.3 ML SYG SC SCH (09:56)
[2019-02-03 14:00] VITALS: BP 126/56; PULSE 74; RESP 18
--- NOTE | 2019-02-03 14:28 | PN ---
Date/Time of Note Date/Time of Note DATE: 02/03/19 TIME: 14:27 Subjective affect much brighter Objective Vital Signs Date Temp Pulse Resp B/P (MAP) Pulse Ox O2 O2 Flow FiO2 Time Delivery Rate 02/03/19 98.0 77 20 137/64 96 Room Air 07:30 (88) Intake and Output 02/02/19 02/02/19 02/03/19 1515:00 23:00 07:00 IntakeIntake Total 1500 ml 300 ml OutputOutput Total 800 ml 150 ml BalanceBalance 700 ml 150 ml Exam pulm-cta min ambulation with PT Results/Medications Result Diagram: 02/02/1962302/02/19623 Medications Current Medications Ferrous Sulfate (Ferrous Sulfate (Ec)) 325 mg TID PO Last administered on 02/03/19at 14:01; Admin Dose 325 MG; Start 01/28/19 at 21:00 Zolpidem Tartrate (Ambien) 5 mg HS PRN PO INSOMNIA; Start 01/28/19 at 20:00 Acetaminophen (Tylenol Tab) 650 mg Q6H PRN PO MILD PAIN(1-3)OR ELEVATED TEMP; Start 01/28/19 at 20:00 Bisacodyl (Dulcolax) 5 mg DAILY PRN PO CONSTIPATION; Start 01/28/19 at 20:00 Diclofenac Sodium (Voltaren 1% Gel) 4 gm QID TP Last administered on 02/03/19at 14:02; Admin Dose 4 GM; Start 01/28/19 at 21:00 Docusate Sodium (Colace) 100 mg Q12 PRN PO CONSTIPATION; Start 01/28/19 at 20:00 Enoxaparin Sodium (Lovenox) 30 mg DAILY SC Last administered on 02/03/19at 09:56; Admin Dose 30 MG; Start 01/29/19 at 09:00 Magnesium Hydroxide (Milk Of Mag) 30 ml DAILY PRN PO CONSTIPATION; Start 01/28/19 at 20:00 Morphine Sulfate (morphine) 2 mg Q4H PRN IV MODERATE PAIN LEVEL 4-6; Start 01/28/19 at 20:00 Morphine Sulfate (morphine) 3 mg Q3H PRN IV SEVERE PAIN LEVEL 7-10; Start 01/28/19 at 20:00 Sodium Biphosphate/ Sodium Phosphate (Fleet Enema) 133 ml DAILY PRN [place] CONSTIPATION; Start 01/28/19 at 20:00 Miscellaneous Information (Pending Santyl Order For Wound Care) 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 PRN XX WOUND CARE; Start 01/28/19 at 22:30 Nitrofurantoin Macrocrystals (Macrobid) 100 mg BID PO Last administered on 02/03/19 09:38; Admin Dose 100 MG; Start 01/29/19 at 21:00 Saccharomyces Boulardii (Florastor) 500 mg BID PO Last administered on 02/03/19 09:48; Admin Dose 500 MG; Start 01/29/19 at 21:00 Docusate Sodium (Colace) 100 mg BID PO Last administered on 02/03/19 09:38; Admin Dose 100 MG; Start 01/30/19 at 09:00 Senna (Senokot) 1 tab HS PO Last administered on 02/02/19at 20:10; Admin Dose 1 TAB; Start 01/30/19 at 21:00 Magnesium Hydroxide (Milk Of Mag) 30 ml BID PRN PO CONSTIPATION; Start 01/29/19 at 23:00 Lactulose (Enulose) 20 gm DAILY PRN PO CONSTIPATION; Start 01/29/19 at 23:00 Bisacodyl (Dulcolax Supp) 10 mg DAILY PRN [place] CONSTIPATION; Start 01/29/19 at 23:00 Ondansetron HCl (Zofran Odt) 4 mg Q6H PRN ODT nausea Last administered on 02/01/19at 00:03; Admin Dose 4 MG; Start 01/30/19 at 16:00 Oxycodone/ Acetaminophen (Percocet (5/ 325)) 1 tab Q4H PRN PO MODERATE PAIN LEVEL 4-6 Last administered on 02/03/19 06:02; Admin Dose 1 TAB; Start 01/30/19 at 16:00 Oxycodone/ Acetaminophen (Percocet (5/ 325)) 2 tab Q4H PRN PO PAIN LEVEL 7-10 Last administered on 02/01/19at 12:00; Admin Dose 2 TAB; Start 01/30/19 at 16:00 Oxybutynin Chloride (Ditropan Xl) 10 mg BID PO Last administered on 02/03/19 09:37; Admin Dose 10 MG; Start 02/02/19 at 21:00 Methylnaltrexone [place] (Relistor) 12 mg Q24H SC ; Start 02/03/19 at 18:30 Assessment/Plan Additional Assessment/Plan Rehab- Right intertrochanteric hip fracture status post ORIF. Much better, Continue rehab Acute pain syndrome- continue current meds Anemia. Osteoarthritis. Status post Clostridium difficile. Urinary urge incontinence. DAE ADAM MD Feb 03, 2019 14:28
[2019-02-03 19:10] VITALS: BP 131/58; PULSE 88; RESP 18
--- NOTE | 2019-02-03 20:27 | PN ---
Date/Time of Note Date/Time of Note DATE: 02/03/19 TIME: 20:23 Assessment/Plan VTE Prophylaxis Risk score (from Ns)>0 risk: 11 SCD applied (from Ns): Yes Pharmacological prophylaxis: LMWH Lines/Catheters IV Catheter Type (from Nrs): Saline Lock Urinary Cath still in place: No Assessment/Plan Problems: (1) Gastro-esophageal reflux disease without esophagitis Status: Acute Comment: Maalox and zantac prn (2) Drug-induced constipation Status: Acute Comment: Cont. methylnaltrexone and prns if needed (3) Urge incontinence Status: Chronic Comment: Cont. oxybutynin (4) Urinary tract infection Status: Acute Comment: Cont. macrobid (5) Postoperative anemia due to acute blood loss Status: Acute Comment: Stable and improving (6) Conflicted attitude towards exercise Status: Acute Comment: Now working more w/ PT (7) Intertrochanteric fracture of right hip Status: Resolved Comment: Cont. PT in ARU. Result Diagram: 02/02/1962302/02/19623 Subjective 24 Hr Interval Summary Constitutional: no complaints, improved (ambulating more today) Respiratory: no complaints Cardiovascular: no complaints Gastrointestinal: constipation, other (heartburn) Genitourinary: no complaints Musculoskeletal: bone/joint pain (only w/ ambulation attempt) Neurologic: no complaints Exam/Review of Systems Exam Vitals VS - Last 72 Hours, by Label Date Temp Pulse Resp B/P (MAP) Pulse Ox O2 O2 Flow FiO2 Time Delivery Rate 02/03/19 98.3 88 18 131/58 96 19:10 (82) 02/03/19 97.7 74 18 126/56 97 Room Air 14:00 (79) 02/03/19 98.0 77 20 137/64 96 Room Air 07:30 (88) 02/03/19 97.8 76 18 123/54 97 Room Air 02:00 (77) 02/02/19 98.0 81 18 120/56 98 Room Air 20:00 (77) 02/02/19 97.2 78 18 122/55 95 Room Air 14:00 (77) 02/02/19 98.0 71 18 118/59 94 Room Air 07:00 (78) 02/02/19 98.0 89 18 142/62 95 Room Air 02:00 (88) 02/01/19 97.4 86 18 118/55 96 Room Air 20:00 (76) 02/01/19 98.0 70 19 129/66 98 Room Air 14:00 (87) 02/01/19 98.0 73 19 147/63 96 Room Air 07:38 (91) 02/01/19 97.9 75 18 139/56 94 Room Air 02:00 (83) Vital Signs Date Temp Pulse Resp B/P (MAP) Pulse Ox O2 O2 Flow FiO2 Time Delivery Rate 02/03/19 98.3 88 18 131/58 96 19:10 (82) 02/03/19 Room Air 14:00 Intake and Output 02/02/19 02/02/19 02/03/19 1515:00 23:00 07:00 IntakeIntake Total 1500 ml 300 ml OutputOutput Total 800 ml 150 ml BalanceBalance 700 ml 150 ml Constitutional: alert, oriented, well developed Psych: no complaints, nl mood/affect Respiratory: clear to auscultation, normal air movement Cardiovascular: regular rate and rhythm, nl pulses, edema (1+ BLE); No murmurs/extra sounds, No rub Gastrointestinal: soft, nl liver, spleen, non-tender, bowel sounds; No mass, No rebound or guarding Musculoskeletal: nl extremities to inspection Extremities: normal pulses; No cyanosis, No clubbing, No edema Neurological: 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, nl mental status, nl speech, nl strength Medications Medication Current Medications Ferrous Sulfate (Ferrous Sulfate (Ec)) 325 mg TID PO Last administered on 02/03/19at 14:01; Admin Dose 325 MG; Start 01/28/19 at 21:00 Zolpidem Tartrate (Ambien) 5 mg HS PRN PO INSOMNIA; Start 01/28/19 at 20:00 Acetaminophen (Tylenol Tab) 650 mg Q6H PRN PO MILD PAIN(1-3)OR ELEVATED TEMP; Start 01/28/19 at 20:00 Bisacodyl (Dulcolax) 5 mg DAILY PRN PO CONSTIPATION; Start 01/28/19 at 20:00 Diclofenac Sodium (Voltaren 1% Gel) 4 gm QID TP Last administered on 02/03/19at 14:02; Admin Dose 4 GM; Start 01/28/19 at 21:00 Docusate Sodium (Colace) 100 mg Q12 PRN PO CONSTIPATION; Start 01/28/19 at 20:00 Enoxaparin Sodium (Lovenox) 30 mg DAILY SC Last administered on 02/03/19at 09:56; Admin Dose 30 MG; Start 01/29/19 at 09:00 Magnesium Hydroxide (Milk Of Mag) 30 ml DAILY PRN PO CONSTIPATION; Start 01/28/19 at 20:00 Morphine Sulfate (morphine) 2 mg Q4H PRN IV MODERATE PAIN LEVEL 4-6; Start 01/28/19 at 20:00 Morphine Sulfate (morphine) 3 mg Q3H PRN IV SEVERE PAIN LEVEL 7-10; Start 01/28/19 at 20:00 Sodium Biphosphate/ Sodium Phosphate (Fleet Enema) 133 ml DAILY PRN [place] CONSTIPATION; Start 01/28/19 at 20:00 [facility]isc[facility] 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 PRN XX WOUND CARE; Start 01/28/19 at 22:30 Nitrofurantoin Macrocrystals (Macrobid) 100 mg BID PO Last administered on 02/03/19at 09:38; Admin Dose 100 MG; Start 01/29/19 at 21:00 Saccharomyces Boulardii (Florastor) 500 mg BID PO Last administered on 02/03/19 at 09:48; Admin Dose 500 MG; Start 01/29/19 at 21:00 Docusate Sodium (Colace) 100 mg BID PO Last administered on 02/03/19at 09:38; Admin Dose 100 MG; Start 01/30/19 at 09:00 Senna (Senokot) 1 tab HS PO Last administered on 02/02/19at 20:10; Admin Dose 1 TAB; Start 01/30/19 at 21:00 Magnesium Hydroxide (Milk Of Mag) 30 ml BID PRN PO CONSTIPATION; Start 01/29/19 at 23:00 Lactulose (Enulose) 20 gm DAILY PRN PO CONSTIPATION; Start 01/29/19 at 23:00 Bisacodyl (Dulcolax Supp) 10 mg DAILY PRN [place] CONSTIPATION; Start 01/29/19 at 23:00 Ondansetron HCl (Zofran Odt) 4 mg Q6H PRN ODT nausea Last administered on 02/01/19at 00:03; Admin Dose 4 MG; Start 01/30/19 at 16:00 Oxycodone/ Acetaminophen (Percocet (5/ 325)) 1 tab Q4H PRN PO MODERATE PAIN LEVEL 4-6 Last administered on 02/03/19at 06:02; Admin Dose 1 TAB; Start 01/30/19 at 16:00 Oxycodone/ Acetaminophen (Percocet (5/ 325)) 2 tab Q4H PRN PO PAIN LEVEL 7-10 Last administered on 02/01/19at 12:00; Admin Dose 2 TAB; Start 01/30/19 at 16:00 Oxybutynin Chloride (Ditropan Xl) 10 mg BID PO Last administered on 02/03/19at 09:37; Admin Dose 10 MG; Start 02/02/19 at 21:00 Methylnaltrexone Becker (Relistor) 12 mg Q24H SC ; Start 02/03/19 at 18:30 ELEAZAR HUTCHISON MD Feb 03, 2019 20:27
[2019-02-03] MEDS ORDERED: RANITIDINE 150 MG TAB PO PRN (20:30)
[2019-02-03] MEDS ORDERED: ALUMINUM HYDROXIDE 30 ML CUP PO PRN (20:30)
[2019-02-03] MEDS: SENNA TAB PO SCH (21:02)
[2019-02-03] MEDS: METHYLNALTREXONE 12 MG/0.6 ML VIAL SC SCH (21:07)
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
[2019-02-04 02:00] VITALS: BP 139/62; PULSE 68; RESP 18
[2019-02-04] MEDS: OXYCODONE/ACETAMINOPHEN (5/325) TAB PO PRN ×2 (06:34→13:23)
[2019-02-04 07:30] VITALS: BP 138/66; PULSE 72; RESP 18
[2019-02-04] MEDS: DOCUSATE SODIUM 100 MG CAP PO SCH ×2 (07:55→20:57)
[2019-02-04] MEDS: FERROUS SULFATE (EC) 325 MG TAB PO SCH ×3 (07:55→20:56)
[2019-02-04] MEDS: NITROFURANTOIN (SR) 100 MG CAP PO SCH ×2 (07:56→20:57)
[2019-02-04] MEDS: DICLOFENAC SODIUM 1% GEL 100 GM TUBE TP SCH ×4 (07:58→20:56)
[2019-02-04] MEDS: ENOXAPARIN 30 MG/0.3 ML SYG SC SCH (07:59)
[2019-02-04] MEDS: SACCHAROMYCES BOULARDII 250 MG CAP PO SCH ×2 (08:08→20:57)
[2019-02-04] MEDS: OXYBUTYNIN (XL) 5 MG TAB PO SCH ×2 (08:08→20:57)
--- NOTE | 2019-02-04 12:22 | PN ---
Date/Time of Note Date/Time of Note DATE: 02/04/19 TIME: 12:15 Objective Vital Signs Date Temp Pulse Resp B/P (MAP) Pulse Ox O2 O2 Flow FiO2 Time Delivery Rate 02/04/19 97.9 72 18 138/66 95 Room Air 07:30 (90) Intake and Output 02/03/19 02/03/19 02/04/19 1515:00 23:00 07:00 IntakeIntake Total 1090 ml BalanceBalance 1090 ml Exam INTERDISCIPLINARY TEAM CONFERENCE Attended by PT, OT, ST, Social Work, Rehabilitation Nursing, Dairy Farmer and Land Management ForesterTemperature Logging Operator Exam: Affect much brighter Pulm- cta Abd-soft BOWEL- Cont BLADDER-Cont SKIN- improving OT- DRESSING-cga BATHING-cga/mod TOILETING-mod PT- BED MOBILITY-min/mod TRANSFERS-min AMBULATION-min 75 feet A/P- Interdisciplinary team conference held today. Please see interdisciplinary sheet. Working toward d.c. on 02/10 with post discharge follow up of physical therapy, occupational therapy. Results/Medications Result Diagram: 02/02/1962302/02/19623 Medications Current Medications Ferrous Sulfate (Ferrous Sulfate (Ec)) 325 mg TID PO Last administered on 02/04/19at 07:55; Admin Dose 325 MG; Start 01/28/19 at 21:00 Zolpidem Tartrate (Ambien) 5 mg HS PRN PO INSOMNIA; Start 01/28/19 at 20:00 Acetaminophen (Tylenol Tab) 650 mg Q6H PRN PO MILD PAIN(1-3)OR ELEVATED TEMP; Start 01/28/19 at 20:00 Bisacodyl (Dulcolax) 5 mg DAILY PRN PO CONSTIPATION; Start 01/28/19 at 20:00 Diclofenac Sodium (Voltaren 1% Gel) 4 gm QID TP Last administered on 02/04/19at 07:58; Admin Dose 4 GM; Start 01/28/19 at 21:00 Docusate Sodium (Colace) 100 mg Q12 PRN PO CONSTIPATION; Start 01/28/19 at 20:00 Enoxaparin Sodium (Lovenox) 30 mg DAILY SC Last administered on 02/04/19at 07:59; Admin Dose 30 MG; Start 01/29/19 at 09:00 Magnesium Hydroxide (Milk Of Mag) 30 ml DAILY PRN PO CONSTIPATION; Start 01/28/19 at 20:00 Morphine Sulfate (morphine) 2 mg Q4H PRN IV MODERATE PAIN LEVEL 4-6; Start 01/28/19 at 20:00 Morphine Sulfate (morphine) 3 mg Q3H PRN IV SEVERE PAIN LEVEL 7-10; Start 01/28/19 at 20:00 Sodium Biphosphate/ Sodium Phosphate (Fleet Enema) 133 ml DAILY PRN [place] CONSTIPATION; Start 01/28/19 at 20:00 Miscellaneous Information (Pending [facility] Order For Wound Care) 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 PRN XX WOUND CARE; Start 01/28/19 at 22:30 Nitrofurantoin Macrocrystals (Macrobid) 100 mg BID PO Last administered on 02/04/19at 07:56; Admin Dose 100 MG; Start 01/29/19 at 21:00 Saccharomyces Boulardii (Florastor) 500 mg BID PO Last administered on 02/04/19at 08:08; Admin Dose 500 MG; Start 01/29/19 at 21:00 Docusate Sodium (Colace) 100 mg BID PO Last administered on 02/04/19at 07:55; Admin Dose 100 MG; Start 01/30/19 at 09:00 Senna (Senokot) 1 tab HS PO Last administered on 02/03/19at 21:02; Admin Dose 1 TAB; Start 01/30/19 at 21:00 Magnesium Hydroxide (Milk Of Mag) 30 ml BID PRN PO CONSTIPATION; Start 01/29/19 at 23:00 Lactulose (Enulose) 20 gm DAILY PRN PO CONSTIPATION; Start 01/29/19 at 23:00 Bisacodyl (Dulcolax Supp) 10 mg DAILY PRN [place] CONSTIPATION; Start 01/29/19 at 23:00 Ondansetron HCl (Zofran Odt) 4 mg Q6H PRN ODT nausea Last administered on 02/01/19at 00:03; Admin Dose 4 MG; Start 01/30/19 at 16:00 Oxycodone/ Acetaminophen (Percocet (5/ 325)) 1 tab Q4H PRN PO MODERATE PAIN LEVEL 4-6 Last administered on 02/04/19at 06:34; Admin Dose 1 TAB; Start 01/30/19 at 16:00 Oxycodone/ Acetaminophen (Percocet (5/ 325)) 2 tab Q4H PRN PO PAIN LEVEL 7-10 Last administered on 02/01/19at 12:00; Admin Dose 2 TAB; Start 01/30/19 at 16:00 Oxybutynin Chloride (Ditropan Xl) 10 mg BID PO Last administered on 02/04/19at 08:08; Admin Dose 10 MG; Start 02/02/19 at 21:00 Methylnaltrexone Browns (Relistor) 12 mg Q24H SC Last administered on 02/03/19at 21:07; Admin Dose 12 MG; Start 02/03/19 at 18:30 Aluminum Hydroxide (Aluminum Hydroxide) 30 ml Q6H PRN PO HEARTBURN; Start 02/03/19 at 20:30 Ranitidine HCl (Zantac) 150 mg BID PRN PO heartburn; Start 02/03/19 at 20:30 DAE ADAM MD Feb 04, 2019 12:21
--- NOTE | 2019-02-04 12:52 | PN ---
Date/Time of Note Date/Time of Note DATE: 02/04/19 TIME: 12:50 Assessment/Plan VTE Prophylaxis Risk score (from [facility])>0 risk: 10 SCD applied (from [facility]): Yes SCD contraindicated: low risk/ambulating Pharmacological prophylaxis: heparin Pharm contraindication: low risk/ambulating Lines/Catheters IV Catheter Type (from [facility]): Saline Lock Urinary Cath still in place: No Assessment/Plan Problems: (1) Fracture of right hip requiring operative repair Onset Date: ~ 01/24/2019 Status: Acute Comment: She is postop and going through rehabilitation protocol. 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 Zhu (4) Postoperative anemia due to acute blood loss Status: Acute Comment: On iron replacement (5) Gastro-esophageal reflux disease without esophagitis Status: Chronic Comment: Stable at this time Result Diagram: 02/02/1962302/02/19623 CC: DAE ADAM MD; LUIS FELIPE SMALL MD; RASHIDA BRANTLEY MD ; Subjective 24 Hr Interval Summary Free Text/Dictation Patient reports she was having some nocturia during the night using the bedpan. She is trying to move around but is still having postoperative pain at the site of the hip fracture Constitutional: no complaints (Eyes fevers chills or sweats) Respiratory: no complaints Cardiovascular: no complaints Gastrointestinal: no complaints Genitourinary: other (Nocturia) Exam/Review of Systems Exam Vitals Vital Signs Date Temp Pulse Resp B/P (MAP) Pulse Ox O2 O2 Flow FiO2 Time Delivery Rate 02/04/19 97.9 72 18 138/66 95 Room Air 07:30 (90) Intake and Output 02/03/19 02/03/19 02/04/19 1515:00 23:00 07:00 IntakeIntake Total 1090 ml BalanceBalance 1090 ml Constitutional: alert, oriented Neck: supple, non-tender Respiratory: clear to auscultation, normal air movement Cardiovascular: regular rate and rhythm, nl pulses Extremities: normal pulses, other (No edema) Medications Medication Current Medications Ferrous Sulfate (Ferrous Sulfate (Ec)) 325 mg TID PO Last administered on 02/04/19at 07:55; Admin Dose 325 MG; Start 01/28/19 at 21:00 Zolpidem Tartrate (Ambien) 5 mg HS PRN PO INSOMNIA; Start 01/28/19 at 20:00 Acetaminophen (Tylenol Tab) 650 mg Q6H PRN PO MILD PAIN(1-3)OR ELEVATED TEMP; Start 01/28/19 at 20:00 Bisacodyl (Dulcolax) 5 mg DAILY PRN PO CONSTIPATION; Start 01/28/19 at 20:00 Diclofenac Sodium (Voltaren 1% Gel) 4 gm QID TP Last administered on 02/04/19at 07:58; Admin Dose 4 GM; Start 01/28/19 at 21:00 Docusate Sodium (Colace) 100 mg Q12 PRN PO CONSTIPATION; Start 01/28/19 at 20:00 Enoxaparin Sodium (Lovenox) 30 mg DAILY SC Last administered on 02/04/19at 07:59; Admin Dose 30 MG; Start 01/29/19 at 09:00 Magnesium Hydroxide (Milk Of Mag) 30 ml DAILY PRN PO CONSTIPATION; Start 01/28/19 at 20:00 Morphine Sulfate (morphine) 2 mg Q4H PRN IV MODERATE PAIN LEVEL 4-6; Start 01/28/19 at 20:00 Morphine Sulfate (morphine) 3 mg Q3H PRN IV SEVERE PAIN LEVEL 7-10; Start 01/28/19 at 20:00 Sodium Biphosphate/ Sodium Phosphate (Fleet Enema) 133 ml DAILY PRN [place] CONSTIPATION; Start 01/28/19 at 20:00 Miscellaneous Information (Pending [facility] Order For Wound Care) 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 PRN XX WOUND CARE; Start 01/28/19 at 22:30 Nitrofurantoin Macrocrystals (Macrobid) 100 mg BID PO Last administered on 02/04/19at 07:56; Admin Dose 100 MG; Start 01/29/19 at 21:00 Saccharomyces Boulardii (Florastor) 500 mg BID PO Last administered on 02/04/19 08:08; Admin Dose 500 MG; Start 01/29/19 at 21:00 Docusate Sodium (Colace) 100 mg BID PO Last administered on 02/04/19at 07:55; Admin Dose 100 MG; Start 01/30/19 at 09:00 Senna (Senokot) 1 tab HS PO Last administered on 02/03/19 21:02; Admin Dose 1 TAB; Start 01/30/19 at 21:00 Magnesium Hydroxide (Milk Of Mag) 30 ml BID PRN PO CONSTIPATION; Start 01/29/19 at 23:00 Lactulose (Enulose) 20 gm DAILY PRN PO CONSTIPATION; Start 01/29/19 at 23:00 Bisacodyl (Dulcolax Supp) 10 mg DAILY PRN [place] CONSTIPATION; Start 01/29/19 at 23:00 Ondansetron HCl (Zofran Odt) 4 mg Q6H PRN ODT nausea Last administered on 02/01/19at 00:03; Admin Dose 4 MG; Start 01/30/19 at 16:00 Oxycodone/ Acetaminophen (Percocet (5/ 325)) 1 tab Q4H PRN PO MODERATE PAIN LEVEL 4-6 Last administered on 02/04/19 06:34; Admin Dose 1 TAB; Start 01/30/19 at 16:00 Oxycodone/ Acetaminophen (Percocet (5/ 325)) 2 tab Q4H PRN PO PAIN LEVEL 7-10 Last administered on 02/01/19 12:00; Admin Dose 2 TAB; Start 01/30/19 at 16:00 Oxybutynin Chloride (Ditropan Xl) 10 mg BID PO Last administered on 02/04/19 08:08; Admin Dose 10 MG; Start 02/02/19 at 21:00 Methylnaltrexone [place] (Relistor) 12 mg Q24H SC Last administered on 02/03/19 21:07; Admin Dose 12 MG; Start 02/03/19 at 18:30 Aluminum Hydroxide (Aluminum Hydroxide) 30 ml Q6H PRN PO HEARTBURN; Start 02/03/19 at 20:30 Ranitidine HCl (Zantac) 150 mg BID PRN PO heartburn; Start 02/03/19 at 20:30 DEEP TEJADA MD Feb 04, 2019 12:52
[2019-02-04 14:00] VITALS: BP 133/61; PULSE 78; RESP 18
[2019-02-04] MEDS: METHYLNALTREXONE 12 MG/0.6 ML VIAL SC SCH (18:34)
[2019-02-04 20:32] VITALS: BP 135/67; PULSE 84; RESP 18
[2019-02-04] MEDS: SENNA TAB PO SCH (20:57)
[2019-02-05 02:00] VITALS: BP 145/65; PULSE 72; RESP 18
[2019-02-05] MEDS: OXYCODONE/ACETAMINOPHEN (5/325) TAB PO PRN ×2 (06:01→10:17)
[2019-02-05 07:30] VITALS: BP 148/63; PULSE 82; RESP 20
[2019-02-05] MEDS: DOCUSATE SODIUM 100 MG CAP PO SCH ×2 (08:27→20:53)
[2019-02-05] MEDS: DICLOFENAC SODIUM 1% GEL 100 GM TUBE TP SCH ×4 (08:27→20:53)
[2019-02-05] MEDS: FERROUS SULFATE (EC) 325 MG TAB PO SCH ×3 (08:28→20:53)
[2019-02-05] MEDS: SACCHAROMYCES BOULARDII 250 MG CAP PO SCH ×2 (08:28→20:53)
[2019-02-05] MEDS: OXYBUTYNIN (XL) 5 MG TAB PO SCH ×2 (08:28→20:53)
[2019-02-05] MEDS: NITROFURANTOIN (SR) 100 MG CAP PO SCH (08:28)
[2019-02-05] MEDS: ENOXAPARIN 30 MG/0.3 ML SYG SC SCH (08:29)
--- NOTE | 2019-02-05 13:56 | PN ---
Date/Time of Note Date/Time of Note DATE: 02/05/19 TIME: 13:53 Assessment/Plan VTE Prophylaxis Risk score (from [facility])>0 risk: 10 SCD applied (from [facility]): Yes Pharmacological prophylaxis: heparin Lines/Catheters IV Catheter Type (from [place]): Saline Lock Urinary Cath still in place: No Assessment/Plan Problems: (1) Urinary tract infection Status: Acute Comment: Completing 7 days of oral antibiotic therapy Qualifiers: Urinary tract infection type: acute cystitis Hematuria presence: without h ematuria Qualified Codes: N30.00 - Acute cystitis without hematuria (2) Fracture of right hip requiring operative repair Onset Date: ~ 01/24/2019 Status: Acute Comment: Postop and rehabilitating nicely Qualifiers: Encounter type: initial encounter Fracture type: closed Qualified Codes: S72.001A - Fracture of unspecified part of neck of right femur, initial encounter for closed fracture (3) Postoperative anemia due to acute blood loss Status: Acute Comment: Improved Result Diagram: 02/02/1924 02/02/19623 Subjective 24 Hr Interval Summary Free Text/Dictation Patient reports she is feeling better Constitutional: no complaints Respiratory: no complaints Cardiovascular: no complaints Gastrointestinal: no complaints Exam/Review of Systems Exam Vitals Vital Signs Date Temp Pulse Resp B/P (MAP) Pulse Ox O2 O2 Flow FiO2 Time Delivery Rate 02/05/19 98.0 82 20 148/63 97 Room Air 07:30 (91) Intake and Output 02/04/19 02/04/19 02/05/19 1515:00 23:00 07:00 IntakeIntake Total 1040 ml 180 ml OutputOutput Total 450 ml BalanceBalance 1040 ml -270 ml Constitutional: alert, oriented Respiratory: clear to auscultation, normal air movement Cardiovascular: regular rate and rhythm, nl pulses Gastrointestinal: soft, nl liver, spleen, non-tender Medications Medication Current Medications Ferrous Sulfate (Ferrous Sulfate (Ec)) 325 mg TID PO Last administered on 02/05/19at 08:28; Admin Dose 325 MG; Start 01/28/19 at 21:00 Zolpidem Tartrate (Ambien) 5 mg HS PRN PO INSOMNIA; Start 01/28/19 at 20:00 Acetaminophen (Tylenol Tab) 650 mg Q6H PRN PO MILD PAIN(1-3)OR ELEVATED TEMP; Start 01/28/19 at 20:00 Bisacodyl (Dulcolax) 5 mg DAILY PRN PO CONSTIPATION; Start 01/28/19 at 20:00 Diclofenac Sodium (Voltaren 1% Gel) 4 gm QID TP Last administered on 02/05/19at 08:27; Admin Dose 4 GM; Start 01/28/19 at 21:00 Docusate Sodium (Colace) 100 mg Q12 PRN PO CONSTIPATION; Start 01/28/19 at 20:00 Enoxaparin Sodium (Lovenox) 30 mg DAILY SC Last administered on 02/05/19at 08:29; Admin Dose 30 MG; Start 01/29/19 at 09:00 Magnesium Hydroxide (Milk Of Mag) 30 ml DAILY PRN PO CONSTIPATION; Start 01/28/19 at 20:00 Morphine Sulfate (morphine) 2 mg Q4H PRN IV MODERATE PAIN LEVEL 4-6; Start 01/28/19 at 20:00 Morphine Sulfate (morphine) 3 mg Q3H PRN IV SEVERE PAIN LEVEL 7-10; Start 06/08 at 20:00 Sodium Biphosphate/ Sodium Phosphate (Fleet Enema) 133 ml DAILY PRN [place] CONSTIPATION; Start 01/28/19 at 20:00 Miscellaneous Information (Pending [facility] Order For Wound Care) 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 PRN XX WOUND CARE; Start 01/28/19 at 22:30 Nitrofurantoin Macrocrystals (Macrobid) 100 mg BID PO Last administered on 02/05/19at 08:28; Admin Dose 100 MG; Start 01/29/19 at 21:00 Saccharomyces Boulardii (Florastor) 500 mg BID PO Last administered on 02/05/19at 08:28; Admin Dose 500 MG; Start 01/29/19 at 21:00 Docusate Sodium (Colace) 100 mg BID PO Last administered on 02/05/19 08:27; Admin Dose 100 MG; Start 01/30/19 at 09:00 Senna (Senokot) 1 tab HS PO Last administered on 02/04/19at 20:57; Admin Dose 1 TAB; Start 01/30/19 at 21:00 Magnesium Hydroxide (Milk Of Mag) 30 ml BID PRN PO CONSTIPATION; Start 01/29/19 at 23:00 Lactulose (Enulose) 20 gm DAILY PRN PO CONSTIPATION; Start 01/29/19 at 23:00 Bisacodyl (Dulcolax Supp) 10 mg DAILY PRN [place] CONSTIPATION; Start 01/29/19 at 23:00 Ondansetron HCl (Zofran Odt) 4 mg Q6H PRN ODT nausea Last administered on 02/01/19at 00:03; Admin Dose 4 MG; Start 01/30/19 at 16:00 Oxycodone/ Acetaminophen (Percocet (5/ 325)) 1 tab Q4H PRN PO MODERATE PAIN LEVEL 4-6 Last administered on 02/05/19at 10:17; Admin Dose 1 TAB; Start 01/30/19 at 16:00 Oxycodone/ Acetaminophen (Percocet (5/ 325)) 2 tab Q4H PRN PO PAIN LEVEL 7-10 Last administered on 02/04/19at 13:23; Admin Dose 2 TAB; Start 01/30/19 at 16:00 Oxybutynin Chloride (Ditropan Xl) 10 mg BID PO Last administered on 02/05/19at 08:28; Admin Dose 10 MG; Start 02/02/19 at 21:00 Methylnaltrexone [place] (Relistor) 12 mg Q24H SC Last administered on 02/04/19at 18:34; Admin Dose 12 MG; Start 02/03/19 at 18:30 Aluminum Hydroxide (Aluminum Hydroxide) 30 ml Q6H PRN PO HEARTBURN; Start 02/03/19 at 20:30 Ranitidine HCl (Zantac) 150 mg BID PRN PO heartburn; Start 02/03/19 at 20:30 Fosfomycin Tromethamine (Monurol) 3 gm ONCE ONCE PO ; Start 02/05/19 at 15:00; Stop 02/05/19 at 15:01 DEEP TEJADA MD Feb 05, 2019 13:55
[2019-02-05 14:00] VITALS: BP 122/57; PULSE 80; RESP 18
--- NOTE | 2019-02-05 14:53 | PN ---
Date/Time of Note Date/Time of Note DATE: 02/05/19 TIME: 14:52 Subjective In good spirits Objective Vital Signs Date Temp Pulse Resp B/P (MAP) Pulse Ox O2 O2 Flow FiO2 Time Delivery Rate 02/05/19 98.0 82 20 148/63 97 Room Air 07:30 (91) Intake and Output 02/04/19 02/04/19 02/05/19 1515:00 23:00 07:00 IntakeIntake Total 1040 ml 180 ml OutputOutput Total 450 ml BalanceBalance 1040 ml -270 ml Exam pulm-cta min assist ambulation Results/Medications Result Diagram: 02/02/1962302/02/19623 Medications Current Medications Ferrous Sulfate (Ferrous Sulfate (Ec)) 325 mg TID PO Last administered on 02/05/19at 13:54; Admin Dose 325 MG; Start 01/28/19 at 21:00 Zolpidem Tartrate (Ambien) 5 mg HS PRN PO INSOMNIA; Start 01/28/19 at 20:00 Acetaminophen (Tylenol Tab) 650 mg Q6H PRN PO MILD PAIN(1-3)OR ELEVATED TEMP; Start 01/28/19 at 20:00 Bisacodyl (Dulcolax) 5 mg DAILY PRN PO CONSTIPATION; Start 01/28/19 at 20:00 Diclofenac Sodium (Voltaren 1% Gel) 4 gm QID TP Last administered on 02/05/19at 13:54; Admin Dose 4 GM; Start 01/28/19 at 21:00 Docusate Sodium (Colace) 100 mg Q12 PRN PO CONSTIPATION; Start 01/28/19 at 20:00 Enoxaparin Sodium (Lovenox) 30 mg DAILY SC Last administered on 02/05/19at 08:29; Admin Dose 30 MG; Start 01/29/19 at 09:00 Magnesium Hydroxide (Milk Of Mag) 30 ml DAILY PRN PO CONSTIPATION; Start 01/28/19 at 20:00 Morphine Sulfate (morphine) 2 mg Q4H PRN IV MODERATE PAIN LEVEL 4-6; Start 01/28/19 at 20:00 Morphine Sulfate (morphine) 3 mg Q3H PRN IV SEVERE PAIN LEVEL 7-10; Start 01/28/19 at 20:00 Sodium Biphosphate/ Sodium Phosphate (Fleet Enema) 133 ml DAILY PRN [place] CONSTIPATION; Start 01/28/19 at 20:00 Miscellaneous Information (Pending [facility] Order For Wound Care) 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 PRN XX WOUND CARE; Start 01/28/19 at 22:30 Saccharomyces Boulardii (Florastor) 500 mg BID PO Last administered on 02/05/19 08:28; Admin Dose 500 MG; Start 01/29/19 at 21:00 Docusate Sodium (Colace) 100 mg BID PO Last administered on 02/05/19 08:27; Admin Dose 100 MG; Start 01/30/19 at 09:00 Senna (Senokot) 1 tab HS PO Last administered on 02/04/19 20:57; Admin Dose 1 TAB; Start 01/30/19 at 21:00 Magnesium Hydroxide (Milk Of Mag) 30 ml BID PRN PO CONSTIPATION; Start 01/29/19 at 23:00 Lactulose (Enulose) 20 gm DAILY PRN PO CONSTIPATION; Start 01/29/19 at 23:00 Bisacodyl (Dulcolax Supp) 10 mg DAILY PRN [place] CONSTIPATION; Start 01/29/19 at 23:00 Ondansetron HCl (Zofran Odt) 4 mg Q6H PRN ODT nausea Last administered on 02/01/19at 00:03; Admin Dose 4 MG; Start 01/30/19 at 16:00 Oxycodone/ Acetaminophen (Percocet (5/ 325)) 1 tab Q4H PRN PO MODERATE PAIN LEVEL 4-6 Last administered on 02/05/19 10:17; Admin Dose 1 TAB; Start 01/30/19 at 16:00 Oxycodone/ Acetaminophen (Percocet (5/ 325)) 2 tab Q4H PRN PO PAIN LEVEL 7-10 Last administered on 02/04/19at 13:23; Admin Dose 2 TAB; Start 01/30/19 at 16:00 Oxybutynin Chloride (Ditropan Xl) 10 mg BID PO Last administered on 02/05/19 08:28; Admin Dose 10 MG; Start 02/02/19 at 21:00 Methylnaltrexone [place] (Relistor) 12 mg Q24H SC Last administered on 02/04/19at 18:34; Admin Dose 12 MG; Start 7/17/19 at 18:30 Aluminum Hydroxide (Aluminum Hydroxide) 30 ml Q6H PRN PO HEARTBURN; Start 02/03/19 at 20:30 Ranitidine HCl (Zantac) 150 mg BID PRN PO heartburn; Start 02/03/19 at 20:30 Assessment/Plan Additional Assessment/Plan Rehab- Right intertrochanteric hip fracture status post ORIF. Continue rehab , solid progress Acute pain syndrome- continue current meds Anemia. Osteoarthritis. Status post Clostridium difficile. Urinary urge incontinence. DAE ADAM MD Feb 05, 2019 14:53
[2019-02-05] MEDS ORDERED: FOSFOMYCIN 3 GM PACKET PO ONE (15:00)
[2019-02-05] MEDS: METHYLNALTREXONE 12 MG/0.6 ML VIAL SC SCH (17:55)
[2019-02-05 20:02] VITALS: BP 119/54; PULSE 91; RESP 20
[2019-02-05] MEDS: SENNA TAB PO SCH (20:53)
[2019-02-06 01:56] VITALS: BP 123/86; PULSE 75; RESP 19
[2019-02-06] MEDS: OXYCODONE/ACETAMINOPHEN (5/325) TAB PO PRN (07:04)
[2019-02-06 07:52] VITALS: BP 134/61; PULSE 73; RESP 18
[2019-02-06] MEDS: DOCUSATE SODIUM 100 MG CAP PO SCH ×2 (09:04→20:39)
[2019-02-06] MEDS: SACCHAROMYCES BOULARDII 250 MG CAP PO SCH ×2 (09:05→20:41)
[2019-02-06] MEDS: OXYBUTYNIN (XL) 5 MG TAB PO SCH ×2 (09:06→20:39)
[2019-02-06] MEDS: FERROUS SULFATE (EC) 325 MG TAB PO SCH ×3 (09:06→20:39)
[2019-02-06] MEDS: DICLOFENAC SODIUM 1% GEL 100 GM TUBE TP SCH ×4 (09:07→20:39)
[2019-02-06] MEDS: ENOXAPARIN 30 MG/0.3 ML SYG SC SCH (09:18)
--- NOTE | 2019-02-06 10:37 | PN ---
Date/Time of Note Date/Time of Note DATE: 02/06/19 TIME: 10:36 Subjective AWKAE ALERT , MILD PAIN Objective Vital Signs Date Temp Pulse Resp B/P (MAP) Pulse Ox O2 O2 Flow FiO2 Time Delivery Rate 02/06/19 98.6 73 18 134/61 97 07:52 (85) 02/05/19 Room Air 14:00 Intake and Output 02/05/19 02/05/19 02/06/19 1515:00 23:00 07:00 IntakeIntake Total 1920 ml 350 ml BalanceBalance 1920 ml 350 ml Exam LUNGS CTA COR RRR - HOMANS CLOF BEDMOB, XT AND GAIT ALYSON FWW Results/Medications Result Diagram: 02/02/1962302/02/19623 Medications Current Medications Ferrous Sulfate (Ferrous Sulfate (Ec)) 325 mg TID PO Last administered on 02/06/19at 09:06; Admin Dose 325 MG; Start 01/28/19 at 21:00 Zolpidem Tartrate (Ambien) 5 mg HS PRN PO INSOMNIA; Start 01/28/19 at 20:00 Acetaminophen (Tylenol Tab) 650 mg Q6H PRN PO MILD PAIN(1-3)OR ELEVATED TEMP; Start 01/28/19 at 20:00 Bisacodyl (Dulcolax) 5 mg DAILY PRN PO CONSTIPATION; Start 01/28/19 at 20:00 Diclofenac Sodium (Voltaren 1% Gel) 4 gm QID TP Last administered on 02/06/19at 09:07; Admin Dose 4 GM; Start 01/28/19 at 21:00 Docusate Sodium (Colace) 100 mg Q12 PRN PO CONSTIPATION; Start 01/28/19 at 20:00 Enoxaparin Sodium (Lovenox) 30 mg DAILY SC Last administered on 02/06/19at 09:18; Admin Dose 30 MG; Start 01/29/19 at 09:00 Magnesium Hydroxide (Milk Of Mag) 30 ml DAILY PRN PO CONSTIPATION; Start 01/28/19 at 20:00 Morphine Sulfate (morphine) 2 mg Q4H PRN IV MODERATE PAIN LEVEL 4-6; Start 01/28/19 at 20:00 Morphine Sulfate (morphine) 3 mg Q3H PRN IV SEVERE PAIN LEVEL 7-10; Start 01/28/19 at 20:00 Sodium Biphosphate/ Sodium Phosphate (Fleet Enema) 133 ml DAILY PRN [place] CONSTIPATION; Start 01/28/19 at 20:00 [facility] 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 PRN XX WOUND CARE; Start 01/28/19 at 22:30 Saccharomyces Boulardii (Florastor) 500 mg BID PO Last administered on 09:05; Admin Dose 500 MG; Start 01/29/19 at 21:00 Docusate Sodium (Colace) 100 mg BID PO Last administered on 02/06/19 09:04; Admin Dose 100 MG; Start 01/30/19 at 09:00 Senna (Senokot) 1 tab HS PO Last administered on 02/05/19 20:53; Admin Dose 1 TAB; Start 01/30/19 at 21:00 Magnesium Hydroxide (Milk Of Mag) 30 ml BID PRN PO CONSTIPATION; Start 01/29/19 at 23:00 Lactulose (Enulose) 20 gm DAILY PRN PO CONSTIPATION; Start 01/29/19 at 23:00 Bisacodyl (Dulcolax Supp) 10 mg DAILY PRN [place] CONSTIPATION; Start 01/29/19 at 23:00 Ondansetron HCl (Zofran Odt) 4 mg Q6H PRN ODT nausea Last administered on 02/01/19at 00:03; Admin Dose 4 MG; Start 01/30/19 at 16:00 Oxycodone/ Acetaminophen (Percocet (5/ 325)) 1 tab Q4H PRN PO MODERATE PAIN LEVEL 4-6 Last administered on 02/06/19at 07:04; Admin Dose 1 TAB; Start 01/30/19 at 16:00 Oxycodone/ Acetaminophen (Percocet (5/ 325)) 2 tab Q4H PRN PO PAIN LEVEL 7-10 Last administered on 02/04/19 13:23; Admin Dose 2 TAB; Start 01/30/19 at 16:00 Oxybutynin Chloride (Ditropan Xl) 10 mg BID PO Last administered on 02/06/19 09:06; Admin Dose 10 MG; Start 02/02/19 at 21:00 Methylnaltrexone [place] (Relistor) 12 mg Q24H SC Last administered on 7 /19/19at 17:55; Admin Dose 12 MG; Start 02/03/19 at 18:30 Aluminum Hydroxide (Aluminum Hydroxide) 30 ml Q6H PRN PO HEARTBURN; Start 02/03/19 at 20:30 Ranitidine HCl (Zantac) 150 mg BID PRN PO heartburn; Start 02/03/19 at 20:30 Assessment/Plan Additional Assessment/Plan Rehab- Right intertrochanteric hip fracture status post ORIF. Continue rehab , solid progress, LOVENOX Acute pain syndrome- continue current meds, TOLERATING PRN NARCOTICS Anemia. Osteoarthritis. Status post Clostridium difficile. Urinary urge incontinence. BRIDGET ADAM MD Feb 06, 2019 10:37
[2019-02-06 14:00] VITALS: BP 126/58; PULSE 95; RESP 18
--- NOTE | 2019-02-06 16:33 | PN ---
Date/Time of Note Date/Time of Note DATE: 02/06/19 TIME: 16:32 Assessment/Plan VTE Prophylaxis Risk score (from [facility] [place])>0 risk: 10 SCD applied (from [facility] [place]): Yes Pharmacological prophylaxis: heparin Lines/Catheters IV Catheter Type (from [facility]): Saline Lock Urinary Cath still in place: No Assessment/Plan Problems: (1) Fracture of right hip requiring operative repair Onset Date: ~ 01/24/2019 Status: Acute Comment: Resting nicely with physical therapy. Anticipate discharge in 6 days. Please note that her dysthymia still is active. Qualifiers: Encounter type: initial encounter Fracture type: closed Qualified Codes: S72.001A - Fracture of unspecified part of neck of right femur, initial encounter for closed fracture Result Diagram: 02/02/1962302/02/19623 Subjective 24 Hr Interval Summary Free Text/Dictation Patient reports that she has not had any therapy today. On careful questioning she acknowledges that she did have physical therapy today but was only for 1 hour and therefore it is the same as nothing Constitutional: no complaints Respiratory: no complaints Cardiovascular: no complaints Gastrointestinal: no complaints Genitourinary: no complaints Exam/Review of Systems Exam Vitals Vital Signs Date Temp Pulse Resp B/P (MAP) Pulse Ox O2 O2 Flow FiO2 Time Delivery Rate 02/06/19 98.6 95 18 126/58 99 Room Air 14:00 (80) Intake and Output 02/05/19 02/05/19 02/06/19 1515:00 23:00 07:00 IntakeIntake Total 1920 ml 350 ml BalanceBalance 1920 ml 350 ml Constitutional: alert, oriented Respiratory: clear to auscultation, normal air movement Cardiovascular: regular rate and rhythm, nl pulses Gastrointestinal: soft, nl liver, spleen, non-tender Medications Medication Current Medications Ferrous Sulfate (Ferrous Sulfate (Ec)) 325 mg TID PO Last administered on 02/06/19at 13:25; Admin Dose 325 MG; Start 01/28/19 at 21:00 Zolpidem Tartrate (Ambien) 5 mg HS PRN PO INSOMNIA; Start 01/28/19 at 20:00 Acetaminophen (Tylenol Tab) 650 mg Q6H PRN PO MILD PAIN(1-3)OR ELEVATED TEMP; Start 01/28/19 at 20:00 Bisacodyl (Dulcolax) 5 mg DAILY PRN PO CONSTIPATION; Start 01/28/19 at 20:00 Diclofenac Sodium (Voltaren 1% Gel) 4 gm QID TP Last administered on 02/06/19at 13:25; Admin Dose 4 GM; Start 01/28/19 at 21:00 Docusate Sodium (Colace) 100 mg Q12 PRN PO CONSTIPATION; Start 01/28/19 at 20:00 Enoxaparin Sodium (Lovenox) 30 mg DAILY SC Last administered on 02/06/19at 09:18; Admin Dose 30 MG; Start 01/29/19 at 09:00 Magnesium Hydroxide (Milk Of Mag) 30 ml DAILY PRN PO CONSTIPATION; Start 01/28/19 at 20:00 Morphine Sulfate (morphine) 2 mg Q4H PRN IV MODERATE PAIN LEVEL 4-6; Start 01/28/19 at 20:00 Morphine Sulfate (morphine) 3 mg Q3H PRN IV SEVERE PAIN LEVEL 7-10; Start 01/28/19 at 20:00 Sodium Biphosphate/ Sodium Phosphate (Fleet Enema) 133 ml DAILY PRN [place] CONSTIPATION; Start 01/28/19 at 20:00 Miscellaneous Information (Pending [facility] Order For Wound Care) 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 PRN XX WOUND CARE; Start 01/28/19 at 22:30 Saccharomyces Boulardii (Florastor) 500 mg BID PO Last administered on 02/06/19at 09:05; Admin Dose 500 MG; Start 01/29/19 at 21:00 Docusate Sodium (Colace) 100 mg BID PO Last administered on 02/06/19at 09:04; Admin Dose 100 MG; Start 01/30/19 at 09:00 Senna (Senokot) 1 tab HS PO Last administered on 02/05/19at 20:53; Admin Dose 1 TAB; Start 01/30/19 at 21:00 Magnesium Hydroxide (Milk Of Mag) 30 ml BID PRN PO CONSTIPATION; Start 01/29/19 at 23:00 Lactulose (Enulose) 20 gm DAILY PRN PO CONSTIPATION; Start 01/29/19 at 23:00 Bisacodyl (Dulcolax Supp) 10 mg DAILY PRN [place] CONSTIPATION; Start 01/29/19 at 23:00 Ondansetron HCl (Zofran Odt) 4 mg Q6H PRN ODT nausea Last administered on 00:03; Admin Dose 4 MG; Start 01/30/19 at 16:00 Oxycodone/ Acetaminophen (Percocet (5/ 325)) 1 tab Q4H PRN PO MODERATE PAIN LEVEL 4-6 Last administered on 02/06/19 07:04; Admin Dose 1 TAB; Start 01/30/19 at 16:00 Oxycodone/ Acetaminophen (Percocet (5/ 325)) 2 tab Q4H PRN PO PAIN LEVEL 7-10 Last administered on 02/04/19 13:23; Admin Dose 2 TAB; Start 01/30/19 at 16:00 Oxybutynin Chloride (Ditropan Xl) 10 mg BID PO Last administered on 02/06/19 09:06; Admin Dose 10 MG; Start 02/02/19 at 21:00 Methylnaltrexone [place] (Relistor) 12 mg Q24H SC Last administered on 02/05/19at 17:55; Admin Dose 12 MG; Start 02/03/19 at 18:30 Aluminum Hydroxide (Aluminum Hydroxide) 30 ml Q6H PRN PO HEARTBURN; Start 02/03/19 at 20:30 Ranitidine HCl (Zantac) 150 mg BID PRN PO heartburn; Start 02/03/19 at 20:30 DEEP TEJADA MD Feb 06, 2019 16:33
[2019-02-06] MEDS: METHYLNALTREXONE 12 MG/0.6 ML VIAL SC SCH (18:08)
[2019-02-06 19:55] VITALS: BP 122/65; PULSE 85; RESP 18
[2019-02-06] MEDS: SENNA TAB PO SCH (20:39)
[2019-02-07 02:00] VITALS: BP 126/87; PULSE 82; RESP 18
[2019-02-07 07:30] VITALS: BP 128/82; PULSE 71; RESP 20
[2019-02-07] MEDS: OXYBUTYNIN (XL) 5 MG TAB PO SCH ×2 (09:01→20:24)
[2019-02-07] MEDS: FERROUS SULFATE (EC) 325 MG TAB PO SCH ×3 (09:01→20:24)
[2019-02-07] MEDS: DOCUSATE SODIUM 100 MG CAP PO SCH ×2 (09:01→20:24)
[2019-02-07] MEDS: SACCHAROMYCES BOULARDII 250 MG CAP PO SCH (09:01)
[2019-02-07] MEDS: ENOXAPARIN 30 MG/0.3 ML SYG SC SCH (09:02)
[2019-02-07] MEDS: DICLOFENAC SODIUM 1% GEL 100 GM TUBE TP SCH ×4 (09:02→20:24)
--- NOTE | 2019-02-07 11:36 | PN ---
Date/Time of Note Date/Time of Note DATE: 02/07/19 TIME: 11:31 Assessment/Plan VTE Prophylaxis Risk score (from [facility])>0 risk: 10 SCD applied (from [facility] [place]): Yes Pharmacological prophylaxis: heparin Lines/Catheters [facility] Urinary Cath still in place: No Assessment/Plan Problems: (1) Fracture of right hip requiring operative repair Onset Date: ~ 01/24/2019 Status: Acute Comment: Patient is stable postop and continues with rehabilitation Qualifiers: Encounter type: initial encounter Fracture type: closed Qualified Codes: S72.001A - Fracture of unspecified part of neck of right femur, initial encounter for closed fracture (2) Urinary tract infection Status: Acute Comment: Status post treatment, repeat UA to verify clearance Qualifiers: Urinary tract infection type: acute cystitis Hematuria presence: without hematuria Qualified Codes: N30.00 - Acute cystitis without hematuria Subjective 24 Hr Interval Summary Constitutional: no complaints Respiratory: no complaints Cardiovascular: no complaints Gastrointestinal: no complaints Exam/Review of Systems Exam Vitals Vital Signs Date Temp Pulse Resp B/P (MAP) Pulse Ox O2 O2 Flow FiO2 Time Delivery Rate 02/07/19 97.6 71 20 128/82 98 Room Air 07:30 (97) Intake and Output 02/06/19 02/06/19 02/07/19 1515:00 23:00 07:00 IntakeIntake Total 580 ml 1200 ml 500 ml OutputOutput Total 600 ml BalanceBalance 580 ml 600 ml 500 ml Constitutional: alert, oriented Respiratory: clear to auscultation, normal air movement Cardiovascular: regular rate and rhythm, nl pulses Gastrointestinal: soft, nl liver, spleen, non-tender Medications Medication Current Medications Ferrous Sulfate (Ferrous Sulfate (Ec)) 325 mg TID PO Last administered on 01/19 08/08at 09:01; Admin Dose 325 MG; Start 01/28/19 at 21:00 Zolpidem Tartrate (Ambien) 5 mg HS PRN PO INSOMNIA; Start 01/28/19 at 20:00 Acetaminophen (Tylenol Tab) 650 mg Q6H PRN PO MILD PAIN(1-3)OR ELEVATED TEMP; Start 01/28/19 at 20:00 Bisacodyl (Dulcolax) 5 mg DAILY PRN PO CONSTIPATION; Start 01/28/19 at 20:00 Diclofenac Sodium (Voltaren 1% Gel) 4 gm QID TP Last administered on 02/07/19at 09:02; Admin Dose 4 GM; Start 01/28/19 at 21:00 Docusate Sodium (Colace) 100 mg Q12 PRN PO CONSTIPATION; Start 01/28/19 at 20:00 Enoxaparin Sodium (Lovenox) 30 mg DAILY SC Last administered on 02/07/19at 09:02; Admin Dose 30 MG; Start 01/29/19 at 09:00 Magnesium Hydroxide (Milk Of Mag) 30 ml DAILY PRN PO CONSTIPATION; Start 01/28/19 at 20:00 Morphine Sulfate (morphine) 2 mg Q4H PRN IV MODERATE PAIN LEVEL 4-6; Start 01/28/19 at 20:00 Morphine Sulfate (morphine) 3 mg Q3H PRN IV SEVERE PAIN LEVEL 7-10; Start 01/28/19 at 20:00 Sodium Biphosphate/ Sodium Phosphate (Fleet Enema) 133 ml DAILY PRN [place] CONSTIPATION; Start 01/28/19 at 20:00 Miscellaneous Information (Pending [facility] Order For Wound Care) 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 PRN XX WOUND CARE; Start 01/28/19 at 22:30 Saccharomyces Boulardii (Florastor) 500 mg BID PO Last administered on 02/07/19at 09:01; Admin Dose 500 MG; Start 01/29/19 at 21:00 Docusate Sodium (Colace) 100 mg BID PO Last administered on 02/07/19at 09:01; Admin Dose 100 MG; Start 01/30/19 at 09:00 Senna (Senokot) 1 tab HS PO Last administered on 02/06/19at 20:39; Admin Dose 1 TAB; Start 01/30/19 at 21:00 Magnesium Hydroxide (Milk Of Mag) 30 ml BID PRN PO CONSTIPATION; Start 01/29/19 at 23:00 Lactulose (Enulose) 20 gm DAILY PRN PO CONSTIPATION; Start 01/29/19 at 23:00 Bisacodyl (Dulcolax Supp) 10 mg DAILY PRN [place] CONSTIPATION; Start 01/29/19 at 23:00 Ondansetron HCl (Zofran Odt) 4 mg Q6H PRN ODT nausea Last administered on 02/01/19at 00:03; Admin Dose 4 MG; Start 01/30/19 at 16:00 Oxycodone/ Acetaminophen (Percocet (5/ 325)) 1 tab Q4H PRN PO MODERATE PAIN LEVEL 4-6 Last administered on 02/06/19at 07:04; Admin Dose 1 TAB; Start 01/30/19 at 16:00 Oxycodone/ Acetaminophen (Percocet (5/ 325)) 2 tab Q4H PRN PO PAIN LEVEL 7-10 Last administered on 02/04/19at 13:23; Admin Dose 2 TAB; Start 01/30/19 at 16:00 Oxybutynin Chloride (Ditropan Xl) 10 mg BID PO Last administered on 02/07/19at 09:01; Admin Dose 10 MG; Start 02/02/19 at 21:00 Methylnaltrexone [place] (Relistor) 12 mg Q24H SC Last administered on 02/06/19at 18:08; Admin Dose 12 MG; Start 02/03/19 at 18:30 Aluminum Hydroxide (Aluminum Hydroxide) 30 ml Q6H PRN PO HEARTBURN; Start 02/03/19 at 20:30 Ranitidine HCl (Zantac) 150 mg BID PRN PO heartburn; Start 02/03/19 at 20:30 DEEP TEJADA MD Feb 07, 2019 11:36
[2019-02-07 14:00] VITALS: BP 126/60; PULSE 84; RESP 18
[2019-02-07] MEDS: METHYLNALTREXONE 12 MG/0.6 ML VIAL SC SCH (17:24)
[2019-02-07 20:00] VITALS: BP 140/65; PULSE 79; RESP 18
[2019-02-07] MEDS: SENNA TAB PO SCH (20:24)
[2019-02-08 02:00] VITALS: BP 128/65; PULSE 81; RESP 18
[2019-02-08] MEDS: OXYCODONE/ACETAMINOPHEN (5/325) TAB PO PRN ×2 (06:12→11:32)
[2019-02-08 07:30] VITALS: BP 120/56; PULSE 86; RESP 18
[2019-02-08] MEDS: DOCUSATE SODIUM 100 MG CAP PO SCH ×2 (09:07→20:29)
[2019-02-08] MEDS: OXYBUTYNIN (XL) 5 MG TAB PO SCH ×2 (09:09→20:29)
[2019-02-08] MEDS: FERROUS SULFATE (EC) 325 MG TAB PO SCH ×3 (09:09→20:29)
[2019-02-08] MEDS: DICLOFENAC SODIUM 1% GEL 100 GM TUBE TP SCH ×4 (09:10→20:35)
[2019-02-08] MEDS: ENOXAPARIN 30 MG/0.3 ML SYG SC SCH (09:20)
[2019-02-08 14:00] VITALS: BP 99/49; PULSE 71; RESP 20
--- NOTE | 2019-02-08 17:35 | PN ---
Date/Time of Note Date/Time of Note DATE: 02/08/19 TIME: 17:34 Subjective Patient pleased with her progress Objective Vital Signs Date Temp Pulse Resp B/P (MAP) Pulse Ox O2 O2 Flow FiO2 Time Delivery Rate 02/08/19 98.1 71 20 99/49 (66) 98 Room Air 14:00 Intake and Output 02/07/19 02/07/19 02/08/19 1515:00 23:00 07:00 IntakeIntake Total 990 ml BalanceBalance 990 ml Exam pulm-cta abd-soft min assist 170 feet Results/Medications Medications Current Medications Ferrous Sulfate (Ferrous Sulfate (Ec)) 325 mg TID PO Last administered on 02/08/19at 12:58; Admin Dose 325 MG; Start 01/28/19 at 21:00 Zolpidem Tartrate (Ambien) 5 mg HS PRN PO INSOMNIA; Start 01/28/19 at 20:00 Acetaminophen (Tylenol Tab) 650 mg Q6H PRN PO MILD PAIN(1-3)OR ELEVATED TEMP; Start 01/28/19 at 20:00 Bisacodyl (Dulcolax) 5 mg DAILY PRN PO CONSTIPATION; Start 01/28/19 at 20:00 Diclofenac Sodium (Voltaren 1% Gel) 4 gm QID TP Last administered on 02/08/19at 17:29; Admin Dose 4 GM; Start 01/28/19 at 21:00 Docusate Sodium (Colace) 100 mg Q12 PRN PO CONSTIPATION; Start 01/28/19 at 20: 00 Enoxaparin Sodium (Lovenox) 30 mg DAILY SC Last administered on 02/08/19at 09:20; Admin Dose 30 MG; Start 01/29/19 at 09:00 Magnesium Hydroxide (Milk Of Mag) 30 ml DAILY PRN PO CONSTIPATION; Start 01/28/19 at 20:00 Morphine Sulfate (morphine) 2 mg Q4H PRN IV MODERATE PAIN LEVEL 4-6; Start 01/28/19 at 20:00 Morphine Sulfate (morphine) 3 mg Q3H PRN IV SEVERE PAIN LEVEL 7-10; Start 01/28/19 at 20:00 Sodium Biphosphate/ Sodium Phosphate (Fleet Enema) 133 ml DAILY PRN [place] CONSTIPATION; Start 01/28/19 at 20:00 Miscellaneous Information (Pending Santyl Order For Wound Care) 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 PRN XX WOUND CARE; Start 01/28/19 at 22:30 Docusate Sodium (Colace) 100 mg BID PO Last administered on 02/08/19at 09:07; Admin Dose 100 MG; Start 01/30/19 at 09:00 Senna (Senokot) 1 tab HS PO Last administered on 02/07/19at 20:24; Admin Dose 1 TAB; Start 01/30/19 at 21:00 Magnesium Hydroxide (Milk Of Mag) 30 ml BID PRN PO CONSTIPATION; Start 01/29/19 at 23:00 Lactulose (Enulose) 20 gm DAILY PRN PO CONSTIPATION; Start 01/29/19 at 23:00 Bisacodyl (Dulcolax Supp) 10 mg DAILY PRN [place] CONSTIPATION; Start 01/29/19 at 23:00 Ondansetron HCl (Zofran Odt) 4 mg Q6H PRN ODT nausea Last administered on 02/01/19at 00:03; Admin Dose 4 MG; Start 01/30/19 at 16:00 Oxycodone/ Acetaminophen (Percocet (5/ 325)) 1 tab Q4H PRN PO MODERATE PAIN LEVEL 4-6 Last administered on 02/08/19at 11:32; Admin Dose 1 TAB; Start 01/30/19 at 16:00 Oxycodone/ Acetaminophen (Percocet (5/ 325)) 2 tab Q4H PRN PO PAIN LEVEL 7-10 Last administered on 02/04/19at 13:23; Admin Dose 2 TAB; Start 01/30/19 at 16:00 Oxybutynin Chloride (Ditropan Xl) 10 mg BID PO Last administered on 02/08/19at 09:09; Admin Dose 10 MG; Start 02/02/19 at 21:00 Methylnaltrexone [place] (Relistor) 12 mg Q24H SC Last administered on 02/07at 17:24; Admin Dose 12 MG; Start 02/03/19 at 18:30 Aluminum Hydroxide (Aluminum Hydroxide) 30 ml Q6H PRN PO HEARTBURN; Start 02/03/19 at 20:30 Ranitidine HCl (Zantac) 150 mg BID PRN PO heartburn; Start 02/03/19 at 20:30 Assessment/Plan Additional Assessment/Plan Rehab- Right intertrochanteric hip fracture status post ORIF. Excellent gains with rehab program Acute pain syndrome- continue current meds Anemia. Osteoarthritis. Status post Clostridium difficile. Urinary urge incontinence. DAE ADAM MD Feb 08, 2019 17:35
[2019-02-08] MEDS: METHYLNALTREXONE 12 MG/0.6 ML VIAL SC SCH (17:57)
[2019-02-08 20:28] VITALS: BP 111/53; PULSE 73; RESP 18
[2019-02-08] MEDS: SENNA TAB PO SCH (20:29)
[2019-02-09 02:36] VITALS: BP 131/61; PULSE 78; RESP 18
[2019-02-09] MEDS: OXYCODONE/ACETAMINOPHEN (5/325) TAB PO PRN ×2 (06:07→09:59)
[2019-02-09 07:00] VITALS: BP_SYST 119; BP_SYST 129; BP_DIAS 56; BP_DIAS 57; PULSE 62; PULSE 80; RESP 18
[2019-02-09] MEDS: DOCUSATE SODIUM 100 MG CAP PO SCH ×2 (08:24→20:54)
[2019-02-09] MEDS: FERROUS SULFATE (EC) 325 MG TAB PO SCH ×3 (08:24→20:55)
[2019-02-09] MEDS: OXYBUTYNIN (XL) 5 MG TAB PO SCH ×2 (08:24→20:54)
[2019-02-09] MEDS: ENOXAPARIN 30 MG/0.3 ML SYG SC SCH (08:30)
[2019-02-09] MEDS: DICLOFENAC SODIUM 1% GEL 100 GM TUBE TP SCH ×4 (08:30→20:55)
--- NOTE | 2019-02-09 13:58 | PN ---
Date/Time of Note Date/Time of Note DATE: 02/09/19 TIME: 13:56 Assessment/Plan VTE Prophylaxis Risk score (from [facility])>0 risk: 10 SCD applied (from [facility]): Yes SCD contraindicated: low risk/ambulating Pharmacological prophylaxis: heparin Pharm contraindication: low risk/ambulating Lines/Catheters IV C[facility]ter Type (from [facility] Saline Lock Urinary Cath still in place: No Assessment/Plan Problems: (1) Fracture of right hip requiring operative repair Onset Date: ~ 01/24/2019 Status: Acute Comment: Aggressing nicely with physical therapy Qualifiers: Encounter type: initial encounter Fracture type: closed Qualified Codes: S72.001A - Fracture of unspecified part of neck of right femur, initial encounter for closed fracture (2) Postoperative anemia due to acute blood loss Status: Acute Comment: Resolving slowly (3) Urinary tract infection Status: Resolved Comment: E. coli infection is resolved Qualifiers: Urinary tract infection type: acute cystitis Hematuria presence: without hematuria Qualified Codes: N30.00 - Acute cystitis without hematuria (4) Age-related osteoporosis with current pathological fracture of right femur Status: Acute Comment: Outpatient treatment after she is discharged from the acute rehab unit Qualifiers: Encounter type: subsequent encounter Fracture healing: with routine healing Qualified Codes: M80.051D - Age-related osteoporosis with current pathological fracture, right femur, subsequent encounter for fracture with routine healing Subjective 24 Hr Interval Summary Free Text/Dictation Patient is actively ambulating, but does complain of pain at the surgical site Constitutional: no complaints Respiratory: no complaints Cardiovascular: no complaints Gastrointestinal: no complaints Genitourinary: no complaints Musculoskeletal: other (Pain) Exam/Review of Systems Exam Vitals Vital Signs Date Temp Pulse Resp B/P (MAP) Pulse Ox O2 O2 Flow FiO2 Time Delivery Rate 02/09/19 98.0 80 18 129/57 95 Room Air 07:00 (81) Intake and Output 02/08/19 02/08/19 02/09/19 1515:00 23:00 07:00 IntakeIntake Total 1170 ml 400 ml OutputOutput Total 400 ml 300 ml BalanceBalance 770 ml 100 ml Constitutional: alert, oriented Respiratory: clear to auscultation, normal air movement Cardiovascular: regular rate and rhythm, nl pulses Gastrointestinal: soft, nl liver, spleen, non-tender Medications Medication Current Medications Ferrous Sulfate (Ferrous Sulfate (Ec)) 325 mg TID PO Last administered on 02/09/19at 13:07; Admin Dose 325 MG; Start 01/28/19 at 21:00 Zolpidem Tartrate (Ambien) 5 mg HS PRN PO INSOMNIA; Start 01/28/19 at 20:00 Acetaminophen (Tylenol Tab) 650 mg Q6H PRN PO MILD PAIN(1-3)OR ELEVATED TEMP; Start 01/28/19 at 20:00 Bisacodyl (Dulcolax) 5 mg DAILY PRN PO CONSTIPATION; Start 01/28/19 at 20:00 Diclofenac Sodium (Voltaren 1% Gel) 4 gm QID TP Last administered on 02/09/19at 13:07; Admin Dose 4 GM; Start 01/28/19 at 21:00 Docusate Sodium (Colace) 100 mg Q12 PRN PO CONSTIPATION; Start 01/28/19 at 20:00 Enoxaparin Sodium (Lovenox) 30 mg DAILY SC Last administered on 02/09/19at 08:30; Admin Dose 30 MG; Start 01/29/19 at 09:00 Magnesium Hydroxide (Milk Of Mag) 30 ml DAILY PRN PO CONSTIPATION; Start 01/28/19 at 20:00 Morphine Sulfate (morphine) 2 mg Q4H PRN IV MODERATE PAIN LEVEL 4-6; Start 01/28/19 at 20:00 Morphine Sulfate (morphine) 3 mg Q3H PRN IV SEVERE PAIN LEVEL 7-10; Start 01/18 08/08 at 20:00 Sodium Biphosphate/ Sodium Phosphate (Fleet Enema) 133 ml DAILY PRN [place] CONSTIPATION; Start 01/28/19 at 20:00 Miscellaneous Information (Pending Santyl Order For Wound Care) 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 PRN XX WOUND CARE; Start 01/28/19 at 22:30 Docusate Sodium (Colace) 100 mg BID PO Last administered on 02/09/19at 08:24; Admin Dose 100 MG; Start 01/30/19 at 09:00 Senna (Senokot) 1 tab HS PO Last administered on 02/08/19at 20:29; Admin Dose 1 TAB; Start 01/30/19 at 21:00 Magnesium Hydroxide (Milk Of Mag) 30 ml BID PRN PO CONSTIPATION; Start 01/29/19 at 23:00 Lactulose (Enulose) 20 gm DAILY PRN PO CONSTIPATION; Start 01/29/19 at 23:00 Bisacodyl (Dulcolax Supp) 10 mg DAILY PRN [place] CONSTIPATION; Start 01/29/19 at 23:00 Ondansetron HCl (Zofran Odt) 4 mg Q6H PRN ODT nausea Last administered on 02/01/19at 00:03; Admin Dose 4 MG; Start 01/30/19 at 16:00 Oxycodone/ Acetaminophen (Percocet (5/ 325)) 1 tab Q4H PRN PO MODERATE PAIN LEVEL 4-6 Last administered on 02/09/19at 06:07; Admin Dose 1 TAB; Start 01/30/19 at 16:00 Oxycodone/ Acetaminophen (Percocet (5/ 325)) 2 tab Q4H PRN PO PAIN LEVEL 7-10 Last administered on 02/09/19at 09:59; Admin Dose 2 TAB; Start 01/30/19 at 16:00 Oxybutynin Chloride (Ditropan Xl) 10 mg BID PO Last administered on 02/09/19at 08:24; Admin Dose 10 MG; Start 02/02/19 at 21:00 Methylnaltrexone [place] (Relistor) 12 mg Q24H SC Last administered on 02/07/19at 17:24; Admin Dose 12 MG; Start 02/03/19 at 18:30 Aluminum Hydroxide (Aluminum Hydroxide) 30 ml Q6H PRN PO HEARTBURN; Start 02/03/19 at 20:30 Ranitidine HCl (Zantac) 150 mg BID PRN PO heartburn; Start 02/03/19 at 20:30 DEEP TEJADA MD Feb 09, 2019 13:58
[2019-02-09 14:00] VITALS: BP 138/61; PULSE 79; RESP 18
--- NOTE | 2019-02-09 15:28 | PN ---
Date/Time of Note Date/Time of Note DATE: 02/09/19 TIME: 15:27 Subjective Patient in good spirits Objective Vital Signs Date Temp Pulse Resp B/P (MAP) Pulse Ox O2 O2 Flow FiO2 Time Delivery Rate 02/09/19 98.0 80 18 129/57 95 Room Air 07:00 (81) Intake and Output 02/08/19 02/08/19 02/09/19 1515:00 23:00 07:00 IntakeIntake Total 1170 ml 400 ml OutputOutput Total 400 ml 300 ml BalanceBalance 770 ml 100 ml Exam pulm-cta abd-soft cga 180 feet Results/Medications Medications Current Medications Ferrous Sulfate (Ferrous Sulfate (Ec)) 325 mg TID PO Last administered on 02/09/19at 13:07; Admin Dose 325 MG; Start 01/28/19 at 21:00 Zolpidem Tartrate (Ambien) 5 mg HS PRN PO INSOMNIA; Start 01/28/19 at 20:00 Acetaminophen (Tylenol Tab) 650 mg Q6H PRN PO MILD PAIN(1-3)OR ELEVATED TEMP; Start 01/28/19 at 20:00 Bisacodyl (Dulcolax) 5 mg DAILY PRN PO CONSTIPATION; Start 01/28/19 at 20:00 Diclofenac Sodium (Voltaren 1% Gel) 4 gm QID TP Last administered on 02/09/19at 13:07; Admin Dose 4 GM; Start 01/28/19 at 21:00 Docusate Sodium (Colace) 100 mg Q12 PRN PO CONSTIPATION; Start 01/28/19 at 20:00 Enoxaparin Sodium (Lovenox) 30 mg DAILY SC Last administered on 02/09/19at 08:30; Admin Dose 30 MG; Start 01/29/19 at 09:00 Magnesium Hydroxide (Milk Of Mag) 30 ml DAILY PRN PO CONSTIPATION; Start 01/28/19 at 20:00 Morphine Sulfate (morphine) 2 mg Q4H PRN IV MODERATE PAIN LEVEL 4-6; Start 01/28/19 at 20:00 Morphine Sulfate (morphine) 3 mg Q3H PRN IV SEVERE PAIN LEVEL 7-10; Start 01/28/19 at 20:00 Sodium Biphosphate/ Sodium Phosphate (Fleet Enema) 133 ml DAILY PRN [place] CONSTIP ATION; Start 01/28/19 at 20:00 [facility] 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 PRN XX WOUND CARE; Start 01/28/19 at 22:30 Docusate Sodium (Colace) 100 mg BID PO Last administered on 02/09/19at 08:24; Admin Dose 100 MG; Start 01/30/19 at 09:00 Senna (Senokot) 1 tab HS PO Last administered on 02/08/19at 20:29; Admin Dose 1 TAB; Start 01/30/19 at 21:00 Magnesium Hydroxide (Milk Of Mag) 30 ml BID PRN PO CONSTIPATION; Start 01/29/19 at 23:00 Lactulose (Enulose) 20 gm DAILY PRN PO CONSTIPATION; Start 01/29/19 at 23:00 Bisacodyl (Dulcolax Supp) 10 mg DAILY PRN [place] CONSTIPATION; Start 01/29/19 at 23 :00 Ondansetron HCl (Zofran Odt) 4 mg Q6H PRN ODT nausea Last administered on 02/01/19at 00:03; Admin Dose 4 MG; Start 01/30/19 at 16:00 Oxycodone/ Acetaminophen (Percocet (5/ 325)) 1 tab Q4H PRN PO MODERATE PAIN LEVEL 4-6 Last administered on 02/09/19at 06:07; Admin Dose 1 TAB; Start 01/30/19 at 16:00 Oxycodone/ Acetaminophen (Percocet (5/ 325)) 2 tab Q4H PRN PO PAIN LEVEL 7-10 L ast administered on 02/09/19at 09:59; Admin Dose 2 TAB; Start 01/30/19 at 16:00 Oxybutynin Chloride (Ditropan Xl) 10 mg BID PO Last administered on 02/09/19at 08:24; Admin Dose 10 MG; Start 02/02/19 at 21:00 Methylnaltrexone [place] (Relistor) 12 mg Q24H SC Last administered on 02/07/19at 17:24; Admin Dose 12 MG; Start 02/03/19 at 18:30 Aluminum Hydroxide (Aluminum Hydroxide) 30 ml Q6H PRN PO HEARTBURN; Start 02/03/19 at 20:30 Ranitidine HCl (Zantac) 150 mg BID PRN PO heartburn; Start 02/03/19 at 20:30 Assessment/Plan Additional Assessment/Plan Rehab- Right intertrochanteric hip fracture status post ORIF. EDoing well, continue program Acute pain syndrome- continue current meds Anemia. Osteoarthritis. Status post Clostridium difficile. Urinary urge incontinence. DAE ADAM MD Feb 09, 2019 15:28
[2019-02-09] MEDS: METHYLNALTREXONE 12 MG/0.6 ML VIAL SC SCH (18:21)
[2019-02-09 20:00] VITALS: BP 125/57; PULSE 79; RESP 18
[2019-02-09] MEDS: SENNA TAB PO SCH (20:54)
[2019-02-10 02:00] VITALS: BP 142/59; PULSE 75; RESP 18
[2019-02-10] MEDS: OXYCODONE/ACETAMINOPHEN (5/325) TAB PO PRN ×2 (06:08→10:49)
[2019-02-10 07:00] VITALS: BP 148/68; PULSE 74; RESP 18
[2019-02-10] MEDS: ONDANSETRON (ODT) 4 MG TAB ODT PRN (09:15)
[2019-02-10] MEDS: DOCUSATE SODIUM 100 MG CAP PO SCH ×2 (09:15→20:43)
[2019-02-10] MEDS: ENOXAPARIN 30 MG/0.3 ML SYG SC SCH (09:15)
[2019-02-10] MEDS: OXYBUTYNIN (XL) 5 MG TAB PO SCH ×2 (09:16→20:43)
[2019-02-10] MEDS: FERROUS SULFATE (EC) 325 MG TAB PO SCH ×3 (09:20→20:43)
[2019-02-10] MEDS: DICLOFENAC SODIUM 1% GEL 100 GM TUBE TP SCH ×4 (09:21→21:41)
[2019-02-10 14:00] VITALS: BP 145/65; PULSE 72; RESP 18
--- NOTE | 2019-02-10 15:16 | PN ---
Date/Time of Note Date/Time of Note DATE: 02/10/19 TIME: 15:13 Subjective Patient doing well, no new complaints Objective Vital Signs Date Temp Pulse Resp B/P (MAP) Pulse Ox O2 O2 Flow FiO2 Time Delivery Rate 02/10/19 98.2 74 18 148/68 96 Room Air 07:00 (94) Intake and Output 02/09/19 02/09/19 02/10/19 1515:00 23:00 07:00 IntakeIntake Total 1200 ml 300 ml OutputOutput Total 800 ml BalanceBalance 400 ml 300 ml Exam pulm-cta abd-soft sba ambulation Results/Medications Result Diagram: 02/10/19 0655 Results 24 hrs Laboratory Tests Test 02/10/19 06:55 White Blood Count 5.4 # Red Blood Count 3.44 L Hemoglobin 10.4 L Hematocrit 34.1 L Mean Corpuscular Volume 99.1 Mean Corpuscular Hemoglobin 30.2 Mean Corpuscular Hemoglobin Concent 30.5 L Red Cell Distribution Width 15.9 H Platelet Count 273 # Mean Platelet Volume 10.6 H Immature Granulocytes % 0.200 Neutrophils % 61.1 Lymphocytes % 21.7 Monocytes % 12.3 H Eosinophils % 4.0 Basophils % 0.7 Nucleated Red Blood Cells % 0.0 Immature Granulocytes # 0.010 Neutrophils # 3.3 Lymphocytes # 1.2 Monocytes # 0.7 Eosinophils # 0.2 Basophils # 0.0 Nucleated Red Blood Cells # 0.0 Medications Current Medications Ferrous Sulfate (Ferrous Sulfate (Ec)) 325 mg TID PO Last administered on 02/10/19at 13:13; Admin Dose 325 MG; Start 01/28/19 at 21:00 Zolpidem Tartrate (Ambien) 5 mg HS PRN PO INSOMNIA; Start 01/28/19 at 20:00 Acetaminophen (Tylenol Tab) 650 mg Q6H PRN PO MILD PAIN(1-3)OR ELEVATED TEMP; Start 01/28/19 at 20:00 Bisacodyl (Dulcolax) 5 mg DAILY PRN PO CONSTIPATION; Start 01/28/19 at 20:00 Diclofenac Sodium (Voltaren 1% Gel) 4 gm QID TP Last administered on 02/10/19at 09:21; Admin Dose 4 GM; Start 01/28/19 at 21:00 Docusate Sodium (Colace) 100 mg Q12 PRN PO CONSTIPATION; Start 01/28/19 at 20:00 Enoxaparin Sodium (Lovenox) 30 mg DAILY SC Last administered on 02/10/19at 09:15; Admin Dose 30 MG; Start 01/29/19 at 09:00 Magnesium Hydroxide (Milk Of Mag) 30 ml DAILY PRN PO CONSTIPATION; Start 01/28/19 at 20:00 Morphine Sulfate (morphine) 2 mg Q4H PRN IV MODERATE PAIN LEVEL 4-6; Start 01/28/19 at 20:00 Morphine Sulfate (morphine) 3 mg Q3H PRN IV SEVERE PAIN LEVEL 7-10; Start 01/28/19 at 20:00 Sodium Biphosphate/ Sodium Phosphate (Fleet Enema) 133 ml DAILY PRN [place] CONSTIPATION; Start 01/28/19 at 20:00 [facility]isc[facility] 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 PRN XX WOUND CARE; Start 01/28/19 at 22:30 Docusate Sodium (Colace) 100 mg BID PO Last administered on 02/10/19at 09:15; Admin Dose 100 MG; Start 01/30/19 at 09:00 Senna (Senokot) 1 tab HS PO Last administered on 02/09/19at 20:54; Admin Dose 1 TAB; Start 01/30/19 at 21:00 Magnesium Hydroxide (Milk Of Mag) 30 ml BID PRN PO CONSTIPATION; Start 01/29/19 at 23:00 Lactulose (Enulose) 20 gm DAILY PRN PO CONSTIPATION; Start 01/29/19 at 23:00 Bisacodyl (Dulcolax Supp) 10 mg DAILY PRN [place] CONSTIPATION; Start 01/29/19 at 23:00 Ondansetron HCl (Zofran Odt) 4 mg Q6H PRN ODT nausea Last administered on 02/10/19at 09:15; Admin Dose 4 MG; Start 01/30/19 at 16:00 Oxycodone/ Acetaminophen (Percocet (5/ 325)) 1 tab Q4H PRN PO MODERATE PAIN LEVEL 4-6 Last administered on 02/10/19 06:08; Admin Dose 1 TAB; Start 01/30/19 at 16:00 Oxycodone/ Acetaminophen (Percocet (5/ 325)) 2 tab Q4H PRN PO PAIN LEVEL 7-10 Last administered on 02/10/19at 10:49; Admin Dose 2 TAB; Start 01/30/19 at 16:00 Oxybutynin Chloride (Ditropan Xl) 10 mg BID PO Last administered on 02/10/19at 09:16; Admin Dose 10 MG; Start 02/02/19 at 21:00 Methylnaltrexone [place] (Relistor) 12 mg Q24H SC Last administered on 02/07/19at 17:24; Admin Dose 12 MG; Start 02/03/19 at 18:30 Aluminum Hydroxide (Aluminum Hydroxide) 30 ml Q6H PRN PO HEARTBURN; Start 02/03/19 at 20:30 Ranitidine HCl (Zantac) 150 mg BID PRN PO heartburn; Start 02/03/19 at 20:30 Assessment/Plan Additional Assessment/Plan Rehab- Right intertrochanteric hip fracture status post ORIF. Overall improved with affect, self care and mobility. Patient looking forward to [place] Acute pain syndrome- continue current meds Anemia. Osteoarthritis. Status post Clostridium difficile. Urinary urge incontinence. DAE ADAM MD Feb 10, 2019 15:16
[2019-02-10] MEDS: METHYLNALTREXONE 12 MG/0.6 ML VIAL SC SCH (18:30)
[2019-02-10 19:55] VITALS: BP 117/65; PULSE 70; RESP 18
[2019-02-10] MEDS: SENNA TAB PO SCH (20:44)
[2019-02-11 02:00] VITALS: BP 127/63; PULSE 82; RESP 18
--- NOTE | 2019-02-11 03:26 | PN ---
DATE: 02/10/2019 PSYCHOLOGY -- INDIVIDUAL SESSION -- [id number] This is a followup on a patient that was seen last week. The patient is feeling better. The patient had felt like she has made progress while she has been in the program. The patient is going to be discharged tomorrow . The patient does need further care and is aware of this. The patient is very motivated to do whatever she needs to do to take care of herself. The patient's son was present with the patient's permission and we talked about issues regarding emotional consequences of all that she has been going through as well as safety issues regarding when she returns to her home. The patient likely is going to be actually home with the son for a couple days and a caregiver and if that does not work, then she would be going to another type of facility. Dictated By: DARRELL BRANTLEY PHD MARYSE/CELY Conf#: [id number] DID#: [id number] MTDD
[2019-02-11] MEDS: OXYCODONE/ACETAMINOPHEN (5/325) TAB PO PRN ×2 (06:03→13:19)
[2019-02-11 07:30] VITALS: BP 114/59; PULSE 68; RESP 18
[2019-02-11] MEDS: DOCUSATE SODIUM 100 MG CAP PO SCH ×2 (09:32→20:50)
[2019-02-11] MEDS: FERROUS SULFATE (EC) 325 MG TAB PO SCH ×3 (09:32→20:50)
[2019-02-11] MEDS: OXYBUTYNIN (XL) 5 MG TAB PO SCH ×2 (09:33→20:51)
[2019-02-11] MEDS: ENOXAPARIN 30 MG/0.3 ML SYG SC SCH (09:34)
[2019-02-11] MEDS: DICLOFENAC SODIUM 1% GEL 100 GM TUBE TP SCH ×3 (09:39→20:53)
--- NOTE | 2019-02-11 13:03 | PN ---
Date/Time of Note Date/Time of Note DATE: 02/11/19 TIME: 13:01 Assessment/Plan VTE Prophylaxis Risk score (from [facility])>0 risk: 9 [place]CD applied [place] [facility] [place] Yes SCD contraindicated: low risk/ambulating Pharmacological prophylaxis: heparin Pharm contraindication: low risk/ambulating Lines/Catheters [facility] Saline Lock Urinary Cath still in place: No Assessment/Plan Problems: (1) Fracture of right hip requiring operative repair Onset Date: ~ 01/24/2019 Status: Acute Comment: Has done quite nicely ultimately with the acute rehabilitation unit protocol. For discharge in the morning follow-up in the office in 2 weeks Qualifiers: Encounter type: initial encounter Fracture type: closed Qualified Codes: S72.001A - Fracture of unspecified part of neck of right femur, initial encou nter for closed fracture (2) Age-related osteoporosis with current pathological fracture of right femur Status: Acute Comment: To start treatment in the next 6 weeks Qualifiers: Encounter type: subsequent encounter Fracture healing: with routine healing Qualified Codes: M80.051D - Age-related osteoporosis with current pathological fracture, right femur, subsequent encounter for fracture with routine healing (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 Status: Acute Comment: Improved Result Diagram: 02/10/19 0655 Subjective 24 Hr Interval Summary Free Text/Dictation Patient is looking forward to being able to go home tomorrow, has full-time attendant who is actually visiting hospital now Constitutional: no complaints Respiratory: no complaints Cardiovascular: no complaints Gastrointestinal: no complaints Genitourinary: no complaints Exam/Review of Systems Exam Vitals Vital Signs Date Temp Pulse Resp B/P (MAP) Pulse Ox O2 O2 Flow FiO2 Time Delivery Rate 02/11/19 97.9 68 18 114/59 96 Room Air 07:30 (77) Intake and Output 02/10/19 02/10/19 02/11/19 1515:00 23:00 07:00 IntakeIntake Total 1200 ml 750 ml OutputOutput Total 800 ml BalanceBalance 400 ml 750 ml Constitutional: alert, oriented Respiratory: clear to auscultation, normal air movement Cardiovascular: regular rate and rhythm, nl pulses Gastrointestinal: soft, nl liver, spleen, non-tender Medications Medication Current Medications Ferrous Sulfate (Ferrous Sulfate (Ec)) 325 mg TID PO Last administered on 02/11/19 09:32; Admin Dose 325 MG; Start 01/28/19 at 21:00 Zolpidem Tartrate (Ambien) 5 mg HS PRN PO INSOMNIA; Start 01/28/19 at 20:00 Acetaminophen (Tylenol Tab) 650 mg Q6H PRN PO MILD PAIN(1-3)OR ELEVATED TEMP; Start 01/28/19 at 20:00 Bisacodyl (Dulcolax) 5 mg DAILY PRN PO CONSTIPATION; Start 01/28/19 at 20:00 Diclofenac Sodium (Voltaren 1% Gel) 4 gm QID TP Last administered on 02/11/19at 09:39; Admin Dose 4 GM; Start 01/28/19 at 21:00 Docusate Sodium (Colace) 100 mg Q12 PRN PO CONSTIPATION; Start 01/28/19 at 20:00 Enoxaparin Sodium (Lovenox) 30 mg DAILY SC Last administered on 02/11/19at 09:34; Admin Dose 30 MG; Start 01/29/19 at 09:00 Magnesium Hydroxide (Milk Of Mag) 30 ml DAILY PRN PO CONSTIPATION; Start 01/28/19 at 20:00 Morphine Sulfate (morphine) 2 mg Q4H PRN IV MODERATE PAIN LEVEL 4-6; Start 01/28/19 at 20:00 Morphine Sulfate (morphine) 3 mg Q3H PRN IV SEVERE PAIN LEVEL 7-10; Start 01/28/19 at 20:00 Sodium Biphosphate/ Sodium Phosphate (Fleet Enema) 133 ml DAILY PRN [place] CONSTI PATION; Start 01/28/19 at 20:00 Miscellaneous Information (Pending [facility] Order For Wound Care) 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 PRN XX WOUND CARE; Start 01/28/19 at 22:30 Docusate Sodium (Colace) 100 mg BID PO Last administered on 02/11/19at 09:32; Admin Dose 100 MG; Start 01/30/19 at 09:00 Senna (Senokot) 1 tab HS PO Last administered on 02/10/19at 20:44; Admin Dose 1 TAB; Start 01/30/19 at 21:00 Magnesium Hydroxide (Milk Of Mag) 30 ml BID PRN PO CONSTIPATION; Start 01/29/19 at 23:00 Lactulose (Enulose) 20 gm DAILY PRN PO CONSTIPATION; Start 01/29/19 at 23:00 Bisacodyl (Dulcolax Supp) 10 mg DAILY PRN [place] CONSTIPATION; Start 01/29/19 at 23:00 Ondansetron HCl (Zofran Odt) 4 mg Q6H PRN ODT nausea Last administered on 02/10/19 09:15; Admin Dose 4 MG; Start 01/30/19 at 16:00 Oxycodone/ Acetaminophen (Percocet (5/ 325)) 1 tab Q4H PRN PO MODERATE PAIN LEVEL 4-6 Last administered on 02/11/19 06:03; Admin Dose 1 TAB; Start 01/30/19 at 16:00 Oxycodone/ Acetaminophen (Percocet (5/ 325)) 2 tab Q4H PRN PO PAIN LEVEL 7-10 Last administered on 02/10/19at 10:49; Admin Dose 2 TAB; Start 01/30/19 at 16:00 Oxybutynin Chloride (Ditropan Xl) 10 mg BID PO Last administered on 02/11/19 09:33; Admin Dose 10 MG; Start 02/02/19 at 21:00 Methylnaltrexone [place] (Relistor) 12 mg Q24H SC Last administered on 02/07/19 17:24; Admin Dose 12 MG; Start 02/03/19 at 18:30 Aluminum Hydroxide (Aluminum Hydroxide) 30 ml Q6H PRN PO HEARTBURN; Start 02/03/19 at 20:30 Ranitidine HCl (Zantac) 150 mg BID PRN PO heartburn; Start 02/03/19 at 20:30 DEEP TEJADA MD Feb 11, 2019 13:03
[2019-02-11 14:00] VITALS: BP 128/58; PULSE 78; RESP 18
--- NOTE | 2019-02-11 17:07 | PN ---
Date/Time of Note Date/Time of Note DATE: 02/11/19 TIME: 17:06 Objective Vital Signs Date Temp Pulse Resp B/P (MAP) Pulse Ox O2 O2 Flow FiO2 Time Delivery Rate 02/11/19 98.0 78 18 128/58 96 Room Air 14:00 (81) Intake and Output 02/10/19 02/10/19 02/11/19 1515:00 23:00 07:00 IntakeIntake Total 1200 ml 750 ml OutputOutput Total 800 ml BalanceBalance 400 ml 750 ml Exam INTERDISCIPLINARY TEAM CONFERENCE Attended by PT, OT, ST, Social Work, Rehabilitation Nursing, Die Cleaner and Basic Acoustic Analyst BOWEL- Cont BLADDER-Cont SKIN- intact OT- DRESSING-s BATHING-s TOILETING-s PT- BED MOBILITY-sba TRANSFERS-sba AMBULATION-sba 200 feet A/P- Interdisciplinary team conference held today. Please see interdisciplinary sheet. Working toward d.c. on 02/12 with post discharge follow up of physical therapy, occupational therapy. Results/Medications Result Diagram: 02/10/19 0655 Medications Current Medications Ferrous Sulfate (Ferrous Sulfate (Ec)) 325 mg TID PO Last administered on 02/11/19at 15:53; Admin Dose 325 MG; Start 01/28/19 at 21:00 Zolpidem Tartrate (Ambien) 5 mg HS PRN PO INSOMNIA; Start 01/28/19 at 20:00 Acetaminophen (Tylenol Tab) 650 mg Q6H PRN PO MILD PAIN(1-3)OR ELEVATED TEMP; Start 01/28/19 at 20:00 Bisacodyl (Dulcolax) 5 mg DAILY PRN PO CONSTIPATION; Start 01/28/19 at 20:00 Diclofenac Sodium (Voltaren 1% Gel) 4 gm QID TP Last administered on 02/11/19at 15:54; Admin Dose 4 GM; Start 01/28/19 at 21:00 Docusate Sodium (Colace) 100 mg Q12 PRN PO CONSTIPATION; Start 01/28/19 at 20:00 Enoxaparin Sodium (Lovenox) 30 mg DAILY SC Last administered on 02/11/19at 09:34; Admin Dose 30 MG; Start 01/29/19 at 09:00 Magnesium Hydroxide (Milk Of Mag) 30 ml DAILY PRN PO CONSTIPATION; Start 01/28/19 at 20:00 Morphine Sulfate (morphine) 2 mg Q4H PRN IV MODERATE PAIN LEVEL 4-6; Start 01/28/19 at 20:00 Morphine Sulfate (morphine) 3 mg Q3H PRN IV SEVERE PAIN LEVEL 7-10; Start 01/28/19 at 20:00 Sodium Biphosphate/ Sodium Phosphate (Fleet Enema) 133 ml DAILY PRN [place] CONSTIPATION; Start 01/28/19 at 20:00 Miscellaneous Information (Pending Santyl Order For Wound Care) 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 PRN XX WOUND CARE; Start 01/28/19 at 22:30 Docusate Sodium (Colace) 100 mg BID PO Last administered on 02/11/19 09:32; Admin Dose 100 MG; Start 01/30/19 at 09:00 Senna (Senokot) 1 tab HS PO Last administered on 02/10/19at 20:44; Admin Dose 1 TAB; Start 01/30/19 at 21:00 Magnesium Hydroxide (Milk Of Mag) 30 ml BID PRN PO CONSTIPATION; Start 01/29/19 at 23:00 Lactulose (Enulose) 20 gm DAILY PRN PO CONSTIPATION; Start 01/29/19 at 23:00 Bisacodyl (Dulcolax Supp) 10 mg DAILY PRN [place] CONSTIPATION; Start 01/29/19 at 23:00 Ondansetron HCl (Zofran Odt) 4 mg Q6H PRN ODT nausea Last administered on 02/10/19 09:15; Admin Dose 4 MG; Start 01/30/19 at 16:00 Oxycodone/ Acetaminophen (Percocet (5/ 325)) 1 tab Q4H PRN PO MODERATE PAIN LEVEL 4-6 Last administered on 02/11/19 13:19; Admin Dose 1 TAB; Start 01/30/19 at 16:00 Oxycodone/ Acetaminophen (Percocet (5/ 325)) 2 tab Q4H PRN PO PAIN LEVEL 7-10 Last administered on 02/10/19 10:49; Admin Dose 2 TAB; Start 01/30/19 at 16:00 Oxybutynin Chloride (Ditropan Xl) 10 mg BID PO Last administered on 02/11/19 09:33; Admin Dose 10 MG; Start 02/02/19 at 21:00 Aluminum Hydroxide (Aluminum Hydroxide) 30 ml Q6H PRN PO HEARTBURN; Start 02/03/19 at 20:30 Ranitidine HCl (Zantac) 150 mg BID PRN PO heartburn; Start 02/03/19 at 20:30 DAE ADAM MD Feb 11, 2019 17:07
[2019-02-11 19:43] VITALS: BP 132/65; PULSE 77; RESP 18
[2019-02-11] MEDS: SENNA TAB PO SCH (20:50)
[2019-02-12 02:00] VITALS: BP 127/62; PULSE 67; RESP 18
[2019-02-12 07:00] VITALS: BP 159/68; PULSE 85; RESP 18
[2019-02-12] MEDS: FERROUS SULFATE (EC) 325 MG TAB PO SCH ×2 (09:25→13:26)
[2019-02-12] MEDS: DOCUSATE SODIUM 100 MG CAP PO SCH (09:25)
[2019-02-12] MEDS: OXYBUTYNIN (XL) 5 MG TAB PO SCH (09:25)
[2019-02-12] MEDS: DICLOFENAC SODIUM 1% GEL 100 GM TUBE TP SCH ×2 (09:26→13:31)
[2019-02-12] MEDS: ENOXAPARIN 30 MG/0.3 ML SYG SC SCH (09:30)
--- NOTE | 2019-02-12 13:35 | PN ---
Date/Time of Note Date/Time of Note DATE: 02/12/19 TIME: 13:34 Assessment/Plan VTE Prophylaxis Risk score (from Ns)>0 risk: 10 SCD applied (from Ns): Yes SCD contraindicated: low risk/ambulating Pharmacological prophylaxis: heparin Pharm contraindication: low risk/ambulating Lines/Catheters [facility] Saline Lock Urinary Cath still in place: No Assessment/Plan Problems: (1) Fracture of right hip requiring operative repair Onset Date: ~ 01/24/2019 Status: Acute Comment: Has progressed to the point where she is stable for outpatient therapy. Stable for discharge Qualifiers: Encounter type: initial encounter Fracture type: closed Qualified Codes: S72.001A - Fracture of unspecified part of neck of right femur, initial encounter for closed fracture (2) Age-related osteoporosis with current pathological fracture of right femur Status: Acute Comment: Initiate treatment as an outpatient from the office. Follow-up in our office in roughly 2 to 3 weeks Qualifiers: Encounter type: subsequent encounter Fracture healing: with routine healing Qualified Codes: M80.051D - Age-related osteoporosis with current pathological fracture, right femur, subsequent encounter for fracture with routine healing Result Diagram: 02/10/19 0655 Subjective 24 Hr Interval Summary Free Text/Dictation Patient reports she is anxious to go home Constitutional: no complaints (No fevers chills or sweats) Respiratory: no complaints Cardiovascular: no complaints Gastrointestinal: no complaints Genitourinary: no complaints Musculoskeletal: other (Pain with ambulation) Exam/Review of Systems Exam Vitals Vital Signs Date Temp Pulse Resp B/P (MAP) Pulse Ox O2 O2 Flow FiO2 Time Delivery Rate 02/12/19 98.8 85 18 159/68 97 Room Air 07:00 (98) Intake and Output 02/11/19 02/11/19 02/12/19 1515:00 23:00 07:00 IntakeIntake Total 840 ml 300 ml OutputOutput Total 250 ml BalanceBalance 840 ml 50 ml Constitutional: alert, oriented Respiratory: clear to auscultation, normal air movement Cardiovascular: regular rate and rhythm, nl pulses Gastrointestinal: soft, nl liver, spleen, non-tender Medications Medication Current Medications Ferrous Sulfate (Ferrous Sulfate (Ec)) 325 mg TID PO Last administered on 02/12/19at 13:26; Admin Dose 325 MG; Start 01/28/19 at 21:00 Zolpidem Tartrate (Ambien) 5 mg HS PRN PO INSOMNIA; Start 01/28/19 at 20:00 Acetaminophen (Tylenol Tab) 650 mg Q6H PRN PO MILD PAIN(1-3)OR ELEVATED TEMP; Start 01/28/19 at 20:00 Bisacodyl (Dulcolax) 5 mg DAILY PRN PO CONSTIPATION; Start 01/28/19 at 20:00 Diclofenac Sodium (Voltaren 1% Gel) 4 gm QID TP Last administered on 02/12/19at 13:31; Admin Dose 4 GM; Start 01/28/19 at 21:00 Docusate Sodium (Colace) 100 mg Q12 PRN PO CONSTIPATION; Start 01/28/19 at 20:00 Enoxaparin Sodium (Lovenox) 30 mg DAILY SC Last administered on 02/12/19at 09:30; Admin Dose 30 MG; Start 01/29/19 at 09:00 Magnesium Hydroxide (Milk Of Mag) 30 ml DAILY PRN PO CONSTIPATION; Start 01/28/19 at 20:00 Morphine Sulfate (morphine) 2 mg Q4H PRN IV MODERATE PAIN LEVEL 4-6; Start 01/28/19 at 20:00 Morphine Sulfate (morphine) 3 mg Q3H PRN IV SEVERE PAIN LEVEL 7-10; Start 01/28 at 20:00 Sodium Biphosphate/ Sodium Phosphate (Fleet Enema) 133 ml DAILY PRN [place] CONSTIPATION; Start 01/28/19 at 20:00 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 PRN XX WOUND CARE; Start 01/28/19 at 22:30 Docusate Sodium (Colace) 100 mg BID PO Last administered on 02/12/19at 09:25; Admin Dose 100 MG; Start 01/30/19 at 09:00 Senna (Senokot) 1 tab HS PO Last administered on 02/11/19at 20:50; Admin Dose 1 TAB; Start 01/30/19 at 21:00 Magnesium Hydroxide (Milk Of Mag) 30 ml BID PRN PO CONSTIPATION; Start 01/29/19 at 23:00 Lactulose (Enulose) 20 gm DAILY PRN PO CONSTIPATION; Start 01/29/19 at 23:00 Bisacodyl (Dulcolax Supp) 10 mg DAILY PRN [place] CONSTIPATION; Start 01/29/19 at 23:00 Ondansetron HCl (Zofran Odt) 4 mg Q6H PRN ODT nausea Last administered on 02/10/19at 09:15; Admin Dose 4 MG; Start 01/30/19 at 16:00 Oxycodone/ Acetaminophen (Percocet (5/ 325)) 1 tab Q4H PRN PO MODERATE PAIN LEVEL 4-6 Last administered on 02/11/19 13:19; Admin Dose 1 TAB; Start 01/30/19 at 16:00 Oxycodone/ Acetaminophen (Percocet (5/ 325)) 2 tab Q4H PRN PO PAIN LEVEL 7-10 Last administered on 02/10/19at 10:49; Admin Dose 2 TAB; Start 01/30/19 at 16:00 Oxybutynin Chloride (Ditropan Xl) 10 mg BID PO Last administered on 02/12/19 09:25; Admin Dose 10 MG; Start 02/02/19 at 21:00 Aluminum Hydroxide (Aluminum Hydroxide) 30 ml Q6H PRN PO HEARTBURN; Start at 20:30 Ranitidine HCl (Zantac) 150 mg BID PRN PO heartburn; Start 02/03/19 at 20:30 DEEP TEJADA MD Feb 12, 2019 13:35
[2019-02-12 14:00] VITALS: BP 156/69; PULSE 71; RESP 18
== END 2019-02-12 16:58 | disposition home health service (06) | DRG 560 ==
LOC: VRC 19:20
PROVIDERS: ADMIT Physical Medicine & Rehabilitation; ATTEND Internal Medicine
PROC: F07Z5ZZ Bed Mobility Treatment (ICD-10-PCS; principal; 2019-01-29)
PROC: F07Z8ZZ Transfer Training Treatment (ICD-10-PCS; 2019-01-29)
PROC: F07Z9ZZ Gait Training/Functional Ambulation Treatment (ICD-10-PCS; 2019-01-29)
PROC: F08Z2ZZ Grooming/Personal Hygiene Treatment (ICD-10-PCS; 2019-01-29)
PROC: F08Z1ZZ Dressing Techniques Treatment (ICD-10-PCS; 2019-01-29)
PROC: F08Z0ZZ Bathing/Showering Techniques Treatment (ICD-10-PCS; 2019-01-29)
DX: S72.141D Displaced intertrochanteric fracture of right femur, subsequent encounter for closed fracture with routine healing (principal); N39.0 Urinary tract infection, site not specified; D62 Acute posthemorrhagic anemia; F06.31 Mood disorder due to known physiological condition with depressive features; N39.41 Urge incontinence; K59.03 Drug induced constipation; K21.9 Gastro-esophageal reflux disease without esophagitis; M19.90 Unspecified osteoarthritis, unspecified site; M80.051D Age-related osteoporosis with current pathological fracture, right femur, subsequent encounter for fracture with routine healing; R52 Pain, unspecified; Z74.09 Other reduced mobility; W18.30XD Fall on same level, unspecified, subsequent encounter
CPT/HCPCS: 80048; 80053; 81001; 81003; 85025; 87081; 87086; 97110; 97112; 97116; 97150; 97163; 97530; 97535; 97542; J1650; J2405